=== PATIENT | female | born 1975 | race Caucasian/White ===

== ENCOUNTER 2022-12-27 21:59 | Outpatient (REF) | payer BC, SELFPAY ==
[2022-12-31 12:09] LABS: Age Gdln ACOG Testing Note (.); HPV Aptima Negative (Negative); IGP, Aptima HPV, rfx 16/18,45 Note (.)
== END 2022-12-27 22:00 | disposition home or self-care (01) ==
LOC: LAB 21:59
PROVIDERS: PCP Family Medicine; Visit Provider Physician Assistant
DX: Z01.419 Encounter for gynecological examination (general) (routine) without abnormal findings (principal)
CPT/HCPCS: 87624; G0145

== ENCOUNTER 2024-02-27 20:27 | Outpatient (REF) | payer BC, SELFPAY ==
[2024-03-02 12:10] LABS: Age Gdln ACOG Testing Note (.); HPV Aptima Negative (Negative); IGP, Aptima HPV, rfx 16/18,45 Note (.)
== END 2024-02-27 20:28 | disposition home or self-care (01) ==
LOC: LAB 20:27
PROVIDERS: PCP Family Medicine; Visit Provider Obstetrics & Gynecology
DX: Z01.419 Encounter for gynecological examination (general) (routine) without abnormal findings (principal)
CPT/HCPCS: 87624; 88175

== ENCOUNTER 2024-04-05 11:15 | Outpatient (REF) | payer BC, SELFPAY ==
--- OUTSIDE RECORDS SUMMARY | 2024-04-11 11:23 | XMS_ITS | CCD ---
Author Organization [facility] Care Team Providers Care Network Contractor Name Role Phone JERMAN ., DR ELSA Yee Primary Care Unavailable DIAB ., CHRISTOPHE Admitting Unavailable DIAB ., CHRISTOPHE Attending Unavailable DEEPALI MAJOR Consulting Unavailable DIAB ., CHRISTOPHE Consulting Unavailable SOPHIEDARIN PACHECO Admitting Unavailable DARIN BARRIOS Attending Unavailable JERMAN ., DR ELSA Yee Primary Care Unavailable DARIN BARRIOS Consulting Unavailable YOLANDA ., DR MASCORRO Admitting Unavailyissel GUERRERO ., DR MASCORRO Attending Unavailyissel STOLL ., DR ELSA Yee Primary Care Unavailable KARCARLOSK ., DR MASCORRO Consulting UnavailKiko Page MD Primary Care Provider Kiko Holder MD Unavailable [phone] Kiko Holder MD Primary Care Provider Kiko Holder MD Unavailable LLUVIA ORTIZ Attending Unavailable SINA MCKEON Attending Unavailable KIKO HOLDER Attending Unavailable Sina Mckeon Attending Unavailable Sina Mckeon Admitting Unavailable Allergies Allergy Classification Reported Allergen(s) Allergy Type Date of Onset Reaction(s) Facility (1 source) Ibuprofen Drug Allergy 6 [facility] (1 source) Sulfamethoxazole / Trimethoprim Drug Allergy 3 [facility] (5 sources) Sulfonamides (Antibiotic) Drug Allergy 3 [facility] (1 source) Sulfamethoxazole / Trimethoprim; Translations: [Bactrim DS] Drug Allergy [facility] Repository Medications Current Medications Medication Drug Class(es) Dates Sig (Normalized) Sig (Original) [id number] 200 actuat albuterol 0.09 mg/actuat metered dose inhaler (7 sources) beta2-Adrenergic Agonist Start: 02-27-2024 take 2 puff(s) by inhalation every four hours for wheezing albuterol HFA 90 mcg/act inhaler Indications: Non-seasonal allergic rhinitis, unspecified trigger Inhale 2 puffs every 4 (four) hours if needed for wheezing 18 g 2 02/27/2024 Active End: 02-27-2024 take 2 puff(s) by inhalation every four hours for wheezing albuterol HFA 90 mcg/act inhaler Inhale 2 puffs every 4 (four) hours if needed for wheezing 02/27/2024 Discontinued (Reorder) azelastine hydrochloride 0.137 mg/actuat metered dose nasal spray (3 sources) Histamine-1 Receptor Antagonist Start: 11-21-2023 End: 02-27-2024 take 1 spray(s) nasal route in the morning azelastine (Astelin) 0.1 % nasal spray Indications: Seasonal allergic rhinitis due to pollen Administer 1 spray into each nostril in the morning and 1 spray before bedtime. Use in each nostril as directed. 90 mL 1 11/21/2023 02/27/2024 Discontinued (Other) cetirizine hydrochloride 10 mg oral tablet (5 sources) Histamine-1 Receptor Antagonist Start: 11-24-2022 take 1 tablet by mouth once daily as needed cetirizine (ZyrTEC) 10 MG tablet Indications: Chronic pansinusitis TAKE 1 TABLET BY MOUTH EVERY DAY NEEDED 90 tablet 2 11/24/2022 Active estradiol 1 mg oral tablet (7 sources) Estrogen Start: 02-27-2024 take 1 tablet by mouth in the morning estradiol (Estrace) 1 MG tablet Indications: Asymptomatic menopausal state Take 1 tablet (1 mg) by mouth in the morning. 90 tablet 3 02/27/2024 Active Start: 09-05-2023 End: 02-27-2024 take 1 tablet by mouth in the morning estradiol (Estrace) 1 MG tablet Indications: Asymptomatic menopausal state TAKE 1 TABLET BY MOUTH IN THE MORNING 90 tablet 3 09/05/2023 02/27/2024 Discontinued (Reorder) famotidine 10 mg oral tablet (5 sources) Histamine-2 Receptor Antagonist take 1 tablet by mouth once daily famotidine (Pepcid) 10 MG tablet Take 10 mg by mouth Daily Active fexofenadine hydrochloride 180 mg oral tablet (5 sources) Histamine-1 Receptor Antagonist take 1 tablet by mouth twice daily as needed fexofenadine (Daniella Allergy) 180 MG tablet Take 180 mg by mouth 2 (two) times a day as needed Active fluticasone propionate 0.05 mg/actuat metered dose nasal spray (5 sources) Corticosteroid take 1 spray(s) nasal route in the morning fluticasone (Flonase) 50 MCG/ACT nasal spray Administer 1 spray into each nostril in the morning. Active 60 actuat fluticasone propionate 0.25 mg/actuat / salmeterol 0.05 mg/actuat dry powder inhaler (5 sources) Corticosteroid, beta2-Adrenergic Agonist Start: End: 025 take 1 puff(s) by inhalation once daily Fluticasone-Salmete rol (Advair Diskus) 250-50 MCG/ACT aerosol powder Indications: Moderate persistent asthma without complication (CMS/HCC) Inhale 1 puff Daily 180 each 1 11/21/2023 05/19/2024 Active montelukast 10 mg oral tablet (7 sources) Leukotriene Receptor Antagonist Start: End: 025 take 1 tablet by mouth at bedtime montelukast (Singulair) 10 MG tablet Indications: Moderate persistent asthma without complication (CMS/HCC) Take 1 tablet (10 mg) by mouth at bedtime 90 tablet 1 02/27/2024 08/25/2024 Active Multiple Vitamin (multivitamin) capsule (5 sources) take 1 capsule by mouth once daily Multiple Vitamin (multivitamin) capsule Take 1 capsule by mouth Daily Active Problems Active Problems Problem Classification Problem Date Documented Da te Episodic/Chronic Asthma (16 sources) Unspecified asthma with (acute) exacerbation; Translations: [Uncomplicated moderate persistent asthma] Onset: 08-22-2022 Resolved: 11-21-2023 Chronic Other screening for suspected conditions (not mental disorders or infectious disease) (6 sources) Encounter for screening for malignant neoplasm of cervix; Translations: [Patient encounter status] Onset: 11-17-2021 Episodic Other skin disorders (1 source) Skin tag; Translations: [Other hypertrophic disorders of the skin] 04-05-2024 Episodic Other upper respiratory disease (7 sources) Allergic rhinitis; Translations: [Allergic rhinitis, unspecified] Onset: 12-21-2022 12-21-2022 Chronic Other upper respiratory infections (5 sources) Chronic pansinusitis; Translations: [Chronic pansinusitis] Onset: 11-03-2022 11-03-2022 Chronic Residual codes; unclassified (2 sources) Menopause present; Translations: [Asymptomatic menopausal state] 02-27-2024 Episodic Unclassified (3 sources) CONTACT W/AND (SUSP) EXPOS COVID-19; Translations: [CONTACT W/AND (SUSP) EXPOS COVID-19] Onset: 05-05-2022 Past or Other Problems Problem Classification Problem Date Documented Date Episodic/Chronic Immunizations and screening for infectious disease (1 source) Encounter for screening for human papillomavirus (HPV); Translations: [ENC SCREENING HUMAN PAPILLOMAVIRUS] Onset: 11-20-2021 Episodic Other nutritional; endocrine; and metabolic disorders (5 sources) Obese class III; Translations: [Class 3 obesity] Onset: 12-21-2022 Resolved: 11-21-2023 11-21-2023 Chronic Unclassified (1 source) CONTACT W/AND (SUSP) EXPOS COVID-19; Translations: [CONTACT W/AND (SUSP) EXPOS COVID-19] Onset: 05-03-2022 Varicose veins of lower extremity (5 sources) Venous varices; Translations: [Asymptomatic varicose veins of unspecified lower extremity] Onset: 11-15-2012 11-03-2022 Episodic Results Test Name Value Interpretation Reference Range Facility IGP,APTIMA HPV,AGE GDLNon AGE GDLN ACOG TESTING Note . [facility] Comment on above: TESTS RESULT FLAG UN ITS REF RANGE LAB Clinician Provided Cytology Information Source.............Vagina No. of containers..01 ThinPrep Vial Age Algo ACOG Georgina... 3065 FLAG LEGEND: L-Low Normal,H-High Normal,LL-Alert Low,HH-Alert High <-Panic Low,>-Panic High,A-Abnormal,AA-Critical Abnormal Performed at: 01 =[address] [id number] Leilani Hunter MD, HPV APTIMA Negative Negative [facility] Comment on above: This nucleic acid am plification test detects fourteen high- risk HPV types (16,18,31,33,35,39,45,51,52,56,58,59,66,68) without differentiation. Performed at: =[address] [id number] Credit Counselor: Leilani Hunter MD, Phone: [phone] Performed at: [address] [id number] Credit Counselor: Leilani Hunter MD, Phone: [phone] IGP, APTIMA HPV, RFX 16/18,45 Note . [facility] Comment on above: TESTS RESULT FLAG U NITS REF RANGE LAB DIAGNOSIS: 02 NEGATIVE FOR INTRAEPITHELIAL LESION OR MALIGNANCY. Specimen adequacy: 02 Satisfactory for evaluation. No endocervical component is identified. Performed by: Lillian Espino, Eye Care Professional (ASCP) . 02 Note: Note 02 The Pap smear is a screening test designed to aid in the detection of premalignant and malignant conditions of the uterine cervix. It is not a diagnostic procedure and should not be used as the sole means of detecting cervical cancer. Both false-positive and false-negative reports do occur. Test Methodology: Note 02 This liquid based ThinPrep(R) pap test was screened with the use of an image guided system. HPV Genotype Reflex Note 02 Criteria not met, HPV Genotype not performed. FLAG LEGEND: L-Low Normal,H-High Normal,LL-Alert Low,HH-Alert High <-Panic Low,>-Panic High,A-Abnormal,AA-Critical Abnormal Performed at: [address] [address] Leilani Hunter MD, SPATUL[facility] Cervical or vaginal smear or scraping studyon 02-27-2024 [facility] CARDIAC ANDRESSA ADMITon 023 CK [Catalytic activity/Vol] 70 U/L Normal 26-192 [facility] Comment on above: Performed By: #### C YOJANA BARTHOLOMEW #### [facility] [address] [address] [address] Ambrocoi Rubio CK.MB [Mass/Vol] 0.93 ng/mL Normal <=3.60 [facility] Comment on above: Performed By: #### C YOJANA BARTHOLOMEW #### [facility] [address] [address] [address] Ambrocio Rubio HSTROP 4.6 pg/mL Normal 4.0-51.3 [facility] Comment on above: Result Comment: CUT- OFF POINTS HAVE BEEN ESTABLISHED BASED ON THE FOURTH UNIVERSAL DEFINITIONS OF MYOCARDIAL INFARCTION. THE UPPER REFERENCE LIMIT (URL) OF TROPONIN, DEFINED THE 99TH PERCENTILE OF cTnI DISTRIBUTION IN A REFERENCE POPULATION, HAS BEEN CONFIRMED THE DECISION THRESHOLD FOR [place] DIAGNOSIS. Performed By: #### C MP, CMADM #### [facility] [address] [place] [address] Dr. Ambrocio Rubio MICHAEL 41 ng/mL Normal 9-82 [facility] Comment on above: Performed By: #### C MP, CMADM #### [facility] [address] [place] [address] Dr. Ambrocio Rubio CBC AUTO DIFFon 08-22-2022 BASO # 0.1 103/ul Normal 0.0-0.1 [facility] Comment on above: Performed By: #### C BC #### [facility] [address] [place] [address] Dr. Ambrocio Rubio Basophils/100 WBC (Bld) 0.9 % Normal 0.2-2.0 [facility] Comment on above: Performed By: #### C BC #### [facility] [address] [place] [address] Dr. Ambrocio Rubio EO # 0.8 103/ul Critically high 0.0-0.7 [facility] Comment on above: Performed By: #### C BC #### [facility] [address] [place] [address] Dr. Ambrocio Rubio Eosinophils/100 WBC (Bld) 8.3 % Critically high 0.9-7.0 [facility] Comment on above: Performed By: #### C BC #### [facility] [address] [place] [address] Dr. Ambrocio Rubio Erythrocyte distribution width (RBC) [Ratio] 13.3 % Normal 11.0-15.0 [facility] Comment on above: Performed By: #### C BC #### [facility] [address] [place] [address] Dr. Ambrocio Rubio Hematocrit (Bld) [Volume fraction] 42.9 % Normal 36.0-48.0 [facility] Comment on above: Performed By: #### C BC #### [facility] [address] [place] [address] Dr. Ambrocio Rubio Hemoglobin (Bld) [Mass/Vol] 14.2 g/dL Normal 12.0-16.0 [facility] Comment on above: Performed By: #### C BC #### [facility] [address] [place] [address] Dr. Ambrocio Rubio IG # 0.04 10e3/ul Critically high 0.00-0.03 [facility] Comment on above: Performed By: #### C BC #### [facility] [address] [place] [address] Dr. Ambrocio Rubio IG % 0.4 % Normal 0.0-0.5 [facility] Comment on above: Performed By: #### C BC #### [facility] [address] [place] [address] Dr. Ambrocio Rubio LYMPH # 4.3 103/ul Critically high 1.2-3.8 [facility] Comment on above: Performed By: #### C BC #### [facility] [address] [place] [address] Dr. Ambrocio Rubio Lymphocytes/100 WBC (Bld) 43.2 % Normal 20.5-60.0 [facility] Comment on above: Performed By: #### C BC #### [facility] [address] [place] [address] Dr. Ambrocio Rubio MANUAL DIFF REQ NO Normal [facility] Comment on above: Performed By: #### C BC #### [facility] [address] [place] [address] Dr. Ambrocio Rubio MCH (RBC) [Entitic mass] 28.5 pg Normal 26.7-34.0 [facility] Comment on above: Performed By: #### C BC #### [facility] [address] [place] [address] Dr. Ambrocio Rubio MCHC (RBC) [Mass/Vol] 33.1 g/dL Normal 29.9-35.2 [facility] Comment on above: Performed By: #### C BC #### [facility] [address] [place] [address] Dr. Ambrocio Rubio MCV (RBC) [Entitic vol] 86.0 fL Normal 81.0-99.0 [facility] Comment on above: Performed By: #### C BC #### [facility] [address] [place] [address] Dr. Ambrocio Rubio MONO # 0.6 103/ul Normal 0.3-0.8 [facility] Comment on above: Performed By: #### C BC #### [facility] [address] [place] [address] Dr. Ambrocio Rubio Monocytes/100 WBC (Bld) 6.0 % Normal 1.7-12.0 [facility] Comment on above: Performed By: #### C BC #### [facility] [address] [place] [address] Dr. Ambrocio Rubio NEUT # 4.1 103/ul Normal 1.4-6.5 [facility] Comment on above: Performed By: #### C BC #### [facility] [address] [place] [address] Dr. Ambrocio Rubio Neutrophils/100 WBC (Bld) 41.2 % Critically low 43.0-75.0 [facility] Comment on above: Performed By: #### C BC #### [facility] [address] [place] [address] Dr. Ambrocio Rubio Platelet mean volume (Bld) [Entitic vol] 10.1 fL Normal 9.5-13.5 [facility] Comment on above: Performed By: #### C BC #### [facility] [address] [place] [address] Dr. Ambrocio Rubio PLT 244 103/ul Normal 150-450 [facility] Comment on above: Performed By: #### C BC #### [facility] [address] [place] [address] Dr. Ambrocio Rubio RBC 4.99 106/ul Normal 4.20-5.40 [facility] Comment on above: Performed By: #### C BC #### [facility] [address] [place] [address] Dr. Ambrocio Rubio WBC 9.9 103/ul Normal 4.0-11.0 [facility] Comment on above: Performed By: #### C BC #### [facility] [address] [address] [address] Ambrocio Rubio PROF 14(COMP METB)on 023 Albumin [Mass/Vol] 3.7 g/dL Normal 3.4-5.0 [facility] Comment on above: Performed By: #### C MP, CMADM #### [facility] [address] [address] [address] Ambrocio Rubio Albumin/Globulin [Mass ratio] 0.8 {ratio} Normal [facility] Comment on above: Performed By: #### C MP, CMADM #### [facility] [address] [address] [address] Ambrocio Rubio ALP [Catalytic activity/Vol] 82 U/L Normal 46-116 [facility] Comment on above: Performed By: #### C MP, CMADM #### [facility] [address] [address] [address] Ambrocio Rubio ALT [Catalytic activity/Vol] 34 U/L Normal 14-59 [facility] Comment on above: Performed By: #### C MP, CMADM #### [facility] [address] [address] [address] Ambrocio Rubio Anion gap [Moles/Vol] 13.6 mmol/L Normal [facility] Comment on above: Performed By: #### C MP, CMADM #### [facility] [address] [address] [address] Ambrocio Rubio AST [Catalytic activity/Vol] 17 U/L Normal 15-37 [facility] Comment on above: Performed By: #### C MP, CMADM #### [facility] [address] [address] [address] Ambrocio Rubio Bilirubin [Mass/Vol] 0.3 mg/dL Normal 0.2-1.0 [facility] Comment on above: Performed By: #### C MP, CMADM #### [facility] [address] [address] [address] Ambrocio Rubio Calcium [Mass/Vol] 9.0 mg/dL Normal 8.5-10.1 [facility] Comment on above: Performed By: #### C MP, CMADM #### [facility] [address] [address] [address] Ambrocio Rubio Chloride [Moles/Vol] 104 mmol/L Normal 98-107 [facility] Comment on above: Performed By: #### C MP, CMADM #### [facility] [address] [address] [address] Ambrocio Rubio CO2 [Moles/Vol] 27.9 mmol/L Normal 21.0-32.0 [facility] Comment on above: Performed By: #### C MP, CMADM #### [facility] [address] [address] [address] Ambrocio Rubio Creatinine [Mass/Vol] 0.82 mg/dL Normal 0.55-1.02 [facility] Comment on above: Performed By: #### C MP, CMADM #### [facility] [address] [address] [address] Ambrocio Rubio EGFR-AF INDONESIAN >60 Normal >=60 [facility] Comment on above: Performed By: #### C MP, CMADM #### [facility] [address] [address] [address] Ambrocio Rubio EGFR-NON AF INDONESIAN >60 Normal >=60 [facility] Comment on above: Performed By: #### C MP, CMADM #### [facility] [address] [address] [address] Ambrocio Rubio Globulin (S) [Mass/Vol] 4.5 g/dL Normal [facility] Comment on above: Performed By: #### C MP, CMADM #### [facility] [address] [address] [address] Ambrocio Rubio Glucose [Mass/Vol] 140 mg/dL Critically high 74-106 [facility] Comment on above: Performed By: #### C MP, CMADM #### [facility] [address] [address] [address] Ambrocio Rubio Potassium [Moles/Vol] 3.5 mmol/L Normal 3.5-5.1 [facility] Comment on above: Performed By: #### C MP, CMADM #### [facility] [address] [address] [address] Ambrocio Rubio Protein [Mass/Vol] 8.2 g/dL Normal 6.4-8.2 [facility] Comment on above: Performed By: #### C MP, CMADM #### [facility] [address] [place] [address] Dr. Ambrocio Rubio Sodium [Moles/Vol] 142 mmol/L Normal 136-145 [facility] Comment on above: Performed By: #### C MP, CMADM #### [facility] [address] [place] [address] Dr. Ambrocio Rubio Urea nitrogen [Mass/Vol] 14.0 mg/dL Normal 7.0-18.0 [facility] Comment on above: Performed By: #### C MP, CMADM #### [facility] [address] [place] [address] Dr. Ambrocio Rubio Urea nitrogen/Creatinin e [Mass ratio] 17.1 mg/mg Normal [facility] Comment on above: Performed By: #### C [place], CMADM #### [facility] [address] [place] [address] Dr. Ambrocio Rubio XR CHEST 1 Von 08-22-2022 XR CHEST 1 V EXAM: Chest x-ray HISTORY: . SHORTNESS OF BREATH . COMPARISON: None TECHNIQUE: Single view of the chest FINDINGS: Heart and vascularity are unremarkable. Lungs are free of focal infiltrates. No effusions are noted. IMPRESSION: No acute heart or lung disease identified. Electronically authenticated by: DEEPALI MAJOR Date: 2022-08-22 10:48 Normal [facility] Covid-19 PCR (CVDTB)on 04-15 SARS-CoV-2 (COVID-19) RNA JO+probe Ql (Unsp spec) Not detected Normal NOT DETECTED [facility] Comment on above: Result Comment: When diagnostic testing is negative, the possibility of a false negative should be considered in the context of a patient's recent exposures and the presence of clinical signs and symptoms consistent with SARS-CoV-2. This test is not yet approved or cleared by the [place] FDA. When there are no FDA-approved or cleared tests available, and other criteria are met, FDA can make tests available under an emergency access mechanism called an Emergency Use Authorization (EUA). The EUA for this test is supported by the [employer] Administrator of Health and Human Service's declaration that circumstances exist to justify the emergency use of in vitro diagnostics for the detection and/or diagnosis of the virus that causes COVID-19. This EUA will remain in effect for the duration of the COVID-19 declaration justifying emergency of IVDs, unless it is terminated or revoked by the FDA (after which the test may no longer be used). Performed By: #### C VDTB #### [facility] [address] [place] [address] Dr. Ambrocio Rubio PAP ACOG PANEL 2: 30 to 65on 11-20-2021 . . Normal [facility] Comment on above: Result Comment: Perf ormed at: WB Performed By: #### [id number] #### [facility] [address] [place] [address] Dr. Ambrocio Rubio Age Gdln ACOG Testing 30-65 Normal [facility] Comment on above: Performed By: #### [id number] #### [facility] [address] [place] [address] Dr. Ambrocio Rubio DIAGNOSIS: Comment Normal [facility] Comment on above: Result Comment: NEGA TIVE FOR INTRAEPITHELIAL LESION OR MALIGNANCY. Performed at: WB Performed By: #### [id number] #### [facility] [address] [place] [address] Dr. Ambrocio Rubio HPV Aptima Negative Normal Negative [facility] Comment on above: Result Comment: This nucleic acid amplification test detects fourteen high-risk HPV types (16,18,31,33,35,39,45,51,52,56,58,59,66,68) without differentiation. Performed at: =G Performed By: #### [id number] #### [facility] [address] [place] [address] Dr. Ambrocio Rubio Methodology: Comment Normal [facility] Comment on above: Result Comment: This liquid based ThinPrep(R) pap test was screened with the use of an image guided system. Performed at: WB Performed By: #### [id number] #### [facility] [address] [place] [address] Dr. Ambrocio Rubio Note: Comment Normal [facility] Comment on above: Result Comment: The Pap smear is a screening test designed to aid in the detection of premalignant and malignant conditions of the uterine cervix. It is not a diagnostic procedure and should not be used as the sole means of detecting cervical cancer. Both false-positive and false-negative reports do occur. . Performed at: WB Performed By: #### [id number] #### [facility] [address] [place] [address] Dr. Ambrocio Rubio Performed by: Comment Normal [facility] Comment on above: Result Comment: Donte Alonzo, [facility] Professional (ASCP) Performed at: WB Performed By: #### [id number] #### [facility] [address] [place] [address] Dr. Ambrocio Rubio Specimen adequacy: Comment Normal [facility] Comment on above: Result Comment: Sati sfactory for evaluation. No endocervical component is identified. Performed at: WB Performed By: #### [id number] #### [facility] [address] [place] [address] Dr. Ambrocio Rubio Vital Signs Date Time Vital Sign Value Performing Clinician Felipe litgeorgie 04-05-2024 11:41-0500 Body mass index (BMI) [Ratio] 44.22 kg/m2 Lluvia GAVIRIA Work Phone: [facility] 04-05-2024 11:41-0500 Body weight 124.29 kg Lluvia GAVIRIA Work Phone: [facility] 02-27-2024 08:47-0400 Body mass index (BMI) [Ratio] 44.84 kg/m2 Sina Mike DO Work Phone: [facility] 02-27-2024 08:47-0400 Body weight 126.01 kg Sina Mike DO Work Phone: [facility] 02-27-2024 08:47-0400 Diastolic blood pressure 74 mm[Hg] Sina Mike DO Work Phone: [facility] 02-27-2024 08:47-0400 Systolic blood pressure 122 mm[Hg] Sina Mike DO Work Phone: [facility] Encounters Encounter Date Encounter Type Care Provider Facility Start: 04-05-2024 End: 04-05-2024 Patient encounter procedure Lluvia Ortiz PA Work Phone: [facility] Comment on above: Skin tag Start: 04-05-2024 End: 04-05-2024 ambulatory LLUVIA MARTINOEY Not Available Start: 03-05-2024 ambulatory Facility:[facility] Start: 02-29-2024 ambulatory Facility:[facility]gr[facility] Douglas Start: 02-27-2024 End: 02-27-2024 Bamboo flowsheet Sina Mike DO Work Phone: [facility] Start: 02-27-2024 End: 03-02-2024 Bamboo flowsheet Sina Mike DO Work Phone: [facility] Start: 02-27-2024 End: 03-02-2024 Clinisync Result Encounter Generic External Data Provider [facility] External Department Unsolicited Start: 02-27-2024 End: 02-27-2024 ambulatory SINA MIKE Not Available Start: 02-27-2024 End: 02-27-2024 Patient encounter procedure Sina Mike DO Work Phone: [facility] Work Phone: Start: 02-27-2024 End: 02-27-2024 Periodic preventive med est patient 40-64yrs Sina Mike DO Work Phone: [facility] Comment on above: Well woman exam with routine gynecological exam; Breast cancer screening by mammogram; Asymptomatic menopausal state; Non-seasonal allergic rhinitis, unspecified trigger; Moderate persistent asthma without complication ([facility]) Start: 11-21-2023 End: 11-21-2023 ambulatory KIKO HOLDER Not Available Start: 08-22-2022 End: 08-22-[address] ELSA STOLL . Facility: Start: 05-03-2022 End: 05-03-2022 ambulatory DARIN BARRIOS Facility:[facility] Start: 11-17-2021 End: 11-17-[address] SUBHA GUERRERO . Facility: Procedures Date Procedure Procedure Detail Performing Clinician Start: 02-27-2024 IGP,APTIMA HPV,AGE GDLN Sina Mike DO Work Phone: Start: 02-27-2024 Cytp cerv/vag auto t hin layer prep mnl screen Sina Mike DO Work Phone: Plan of Treatment Date Care Activity Detail Author Start: 02-28-2025 End: 02-28-2025 Patient encounter procedure 02/28/2025 10:00 AM EDT Office Visit [facility] [address] [place] [address] Sina Mckeon, DO [address] [place], [place] [id number] [facility] Start: 04-05-2024 End: 04-05-2024 Patient encounter procedure 04/05/2024 11:00 AM EST Procedure Visit [facility] [address] [place] [address] Lluvia Ortiz PA [address] [place], [place] [id number] [facility] Start: 02-27-2024 End: 04-28-2025 MG Breast - bilateral Screening Bilateral screening mammogram Imaging Routine Breast cancer screening by mammogram Expected: 02/27/2024 (Approximate), Expires: 04/28/2025 [facility] Work Phone: Comment on above: Expected: 02/27/2024 (Approximate), Expires: 04/28/2025 Start: 01-15-2024 Influenza vaccination Influenza Vacc ine (#1) [facility] Start: 2014 Screening for malignant neoplasm of breast Mammogram [facility] Start: 1974 Screening for malignant neoplasm of colon [facility] THIN PREP TIS PAP AN D HR HPV DNA THIN PREP TIS PAP AND HR HPV DNA Pathology and Cytology Routine Well woman exam with routine gynecological exam Ordered: 02/27/2024 [facility] Comment on above: Ordered: 02/27/2024 Immunizations Immunization Date Immunization Notes Care Provider Sonia roman 05-18-2000 hepatitis B vaccine, adult dosage Sina Mike DO Work Phone: [facility] 11-18-1999 hepatitis B vaccine, adult dosage Sina Mike DO Work Phone: [facility] 10-14-1999 hepatitis B vaccine, adult dosage Sina Mike DO Work Phone: [facility] 10-14-1999 measles, mumps and rubella virus vaccine Sina Mike DO Work Phone: [facility] 10-14-1999 TD(adult) unspecifie d formulation Sina Mike DO Work Phone: [facility] 08-05-1977 measles, mumps and rubella virus vaccine Sina Mike DO Work Phone: [facility] Payers Date Payer Category Payer Self-pay 2024 Unknown [id number] 2022 [facility] [id number] 2022 Unknown [id number] 2019 Unknown [id number] 1974 Unknown [id number] 2.16.84 [id number] 1974 Unknown [id number] 2.16.84 [id number] 1974 Unknown [id number] 2.16.84 [id number] 1974 Unknown [id number] 2.16.84 [id number] 1974 Unknown [id number] 2.16.84 [id number] 1974 Unknown [id number] [id number] [id number] Social History Date Type Detail Facility Start: 11-21-2023 Tobacco smoking stat [facility] Never smoked tobacco [facility] Start: 11-21-2023 Tobacco use and exposure Smoke less tobacco non-user [facility] Start: 11-21-2023 End: 04-05-2024 Alcoholic beverage intake Current drinker of alcohol (finding) [facility] Start: 11-04-2022 End: 11-21-2023 Alcoholic beverage intake [facility] Start: 11-04-2022 End: 11-21-2023 Tobacco use panel [facility] Start: 11-17-2022 Alcohol Comment Caffeine intak e: 1-2 cups per day [facility] Start: 1974 Sex assigned at Not on file [facility] History of Present illness Narrative 04-05-2024 Elaine Sanchez MA - 04/05/2024 11:00 AM EST Note Date & Type Note Facility 04-05-2024 History of Presen t illness Narrative Reason for Appointment: Patient ID: Serina Horn is a 48 y.o. female who presents for Skin Tag (Pt present today for a skin tag removal visit.) Patient presents today for skin tag removal visit MEDICATIONS Current Outpatient Medications Medication Instructions albuterol HFA 90 mcg/act inhaler 2 puffs, Inhalation, Every 4 hours PRN cetirizine (ZyrTEC) 10 MG tablet TAKE 1 TABLET BY MOUTH EVERY DAY NEEDED estradiol (ESTRACE) 1 mg, Oral, Every morning famotidine (PEPCID) 10 mg, Oral, Daily fexofenadine (DANIELLA ALLERGY) 180 mg, Oral, 2 times daily PRN fluticasone (Flonase) 50 MCG/ACT nasal spray 1 spray, Each Nostril, Daily Fluticasone-Salmeterol (Advair Diskus) 250-50 MCG/ACT aerosol powder 1 puff, Inhalation, Daily montelukast (SINGULAIR) 10 mg, Oral, Nightly Multiple Vitamin (multivitamin) capsule 1 capsule, Oral, Daily ALLERGIES Allergies Allergen Reactions Sulfa Antibiotics Other Reaction(s): Unknown PROBLEMS Active Ambulatory Problems Diagnosis Date Noted Asymptomatic varicose veins 11/15/2012 Chronic pansinusitis 11/03/2022 Allergic rhinitis 12/21/2022 Moderate persistent asthma without complication ([facility]) 11/21/2023 Resolved Ambulatory Problems Diagnosis Date Noted Asthma (CMS/HCC) 12/21/2022 Class 3 obesity 12/21/2022 Past Medical History: Diagnosis Date Breast cancer screening by mammogram 06/26/2020 Glaucoma (CMS/HCC) Mild intermittent asthma (CMS/HCC) Recurrent maxillary sinusitis Suppurative otitis media HISTORY PAST MEDICAL HISTORY SOCIAL HISTORY Past Medical History: Diagnosis Date Allergic rhinitis Breast cancer screening by mammogram 06/26/2020 Glaucoma (CMS/HCC) Mild intermittent asthma (CMS/HCC) Recurrent maxillary sinusitis Suppurative otitis media Social History Tobacco Use Smoking status: Never Smokeless tobacco: Never Substance Use Topics Alcohol use: Yes Alcohol/week: 2.0 standard drinks of alcohol Types: 2 Standard drinks or equivalent per week Comment: Caffeine intake: 1-2 cups per day Drug use: Never FAMILY HISTORY Family History Problem Relation Name Age of Onset Diabetes Mother Hypertension Mother Hyperlipidemia Mother Hypertension Father Hyperlipidemia Father Cancer Father SURGICAL HISTORY Past Surgical History: Procedure Laterality Date APPENDECTOMY 2008 HYSTERECTOMY REVIEW OF SYSTEMS Review of Systems: Review of Systems All other systems reviewed and are negative. OBJECTIVE Objective: Physical Exam Constitutional: Appearance: Normal appearance. She is well-developed. Cardiovascular: Rate and Rhythm: Normal rate and regular rhythm. Pulmonary: Effort: Pulmonary effort is normal. Breath sounds: Normal breath sounds. Abdominal: General: Bowel sounds are normal. There is no distension. Palpations: Abdomen is soft. Tenderness: There is no abdominal tenderness. There is no guarding or rebound. Musculoskeletal: General: No swelling. Normal range of motion. Right lower leg: No edema. Left lower leg: No edema. Neurological: Mental Status: She is alert and oriented to person, place, and time. Skin: General: Skin is warm and dry. Psychiatric: Mood and Affect: Mood normal. Behavior: Behavior normal. Vitals and nursing note reviewed. Exam conducted with a tactical debriefer present. Vitals: Estimated body mass index is 44.84 kg/m as calculated from the following: Height as of 11/21/23: 5' 6 . Weight as of 10/14/24: 277 lb 12.8 oz. BP: No LMP recorded. Patient has had a hysterectomy. ASSESSMENT & PLAN ICD-10-CM 1. Skin tag L91.8 Skin Tag Removal: Patient presents today for skin tags being removed along her neck bilaterally. Patient signed consents for procedure. Area cleansed with alcohol, lidocaine injected after allowing sufficient time to take affect. bean picker and scissors used to remove affected area. Placed in formalin and sent to pathology. Post-procedure instructions given. Several skin tags removed on right and left side, which will be sent to Pathology for testing. Follow Up: as needed and for annual appointment. Documented by Sepideh Guerra LPN on behalf of: EVERETTE Skinner documented in this encounter [facility] History of Present illness Narrative 02-27-2024 Sepideh Guerra LPN - 02/27/2024 8:30 AM EDT Note Date & Type Note Facility 02-27-2024 History of Presen t illness Narrative Reason for Appointment: Patient ID: Serina Horn is a 48 y.o. female who presents for Well Women Visit Patient presents today for Annual Exam. MEDICATIONS Current Outpatient Medications Medication Instructions albuterol HFA 90 mcg/act inhaler 2 puffs, Inhalation, Every 4 hours PRN cetirizine (ZyrTEC) 10 MG tablet TAKE 1 TABLET BY MOUTH EVERY DAY NEEDED estradiol (ESTRACE) 1 mg, Oral, Every morning famotidine (PEPCID) 10 mg, Oral, Daily fexofenadine (DANIELLA ALLERGY) 180 mg, Oral, 2 times daily PRN fluticasone (Flonase) 50 MCG/ACT nasal spray 1 spray, Each Nostril, Daily Fluticasone-Salmeterol (Advair Diskus) 250-50 MCG/ACT aerosol powder 1 puff, Inhalation, Daily montelukast (SINGULAIR) 10 mg, Oral, Nightly Multiple Vitamin (multivitamin) capsule 1 capsule, Oral, Daily ALLERGIES Allergies Allergen Reactions Sulfa Antibiotics Other Reaction(s): Unknown PROBLEMS Active Ambulatory Problems Diagnosis Date Noted Asymptomatic varicose veins 11/15/2012 Chronic pansinusitis 11/03/2022 Allergic rhinitis 12/21/2022 Moderate persistent asthma without complication ([facility]) 11/21/2023 Resolved Ambulatory Problems Diagnosis Date Noted Asthma ([facility]) 12/21/2022 Class 3 obesity 12/21/2022 Past Medical History: Diagnosis Date Breast cancer screening by mammogram 06/26/2020 Glaucoma ([facility]) Mild intermittent asthma ([facility]) Recurrent maxillary sinusitis Suppurative otitis media HISTORY PAST MEDICAL HISTORY SOCIAL HISTORY Past Medical History: Diagnosis Date Allergic rhinitis Breast cancer screening by mammogram 06/26/2020 Glaucoma ([facility]) Mild intermittent asthma ([facility]) Recurrent maxillary sinusitis Suppurative otitis media Social History Tobacco Use Smoking status: Never Smokeless tobacco: Never Substance Use Topics Alcohol use: Yes Alcohol/week: 2.0 standard drinks of alcohol Types: 2 Standard drinks or equivalent per week Comment: Caffeine intake: 1-2 cups per day Drug use: Never FAMILY HISTORY Family History Problem Relation Name Age of Onset Diabetes Mother Hypertension Mother Hyperlipidemia Mother Hypertension Father Hyperlipidemia Father Cancer Father SURGICAL HISTORY Past Surgical History: Procedure Laterality Date APPENDECTOMY 2007 HYSTERECTOMY REVIEW OF SYSTEMS Review of Systems: Review of Systems All other systems reviewed and are negative. OBJECTIVE Objective: Physical Exam Constitutional: Appearance: Normal appearance. She is well-developed. Genitourinary: Vulva normal. Vaginal cuff intact. Cervix is not absent. Uterus is not absent. Breasts: Breasts are soft. Right: Normal. Left: Normal. Cardiovascular: Rate and Rhythm: Normal rate and regular rhythm. Abdominal: General: Bowel sounds are normal. There is no distension. Palpations: Abdomen is soft. Tenderness: There is no abdominal tenderness. There is no guarding or rebound. Musculoskeletal: General: No swelling. Normal range of motion. Right lower leg: No edema. Left lower leg: No edema. Neurological: Mental Status: She is alert and oriented to person, place, and time. Skin: General: Skin is warm and dry. Psychiatric: Mood and Affect: Mood normal. Behavior: Behavior normal. Vitals and nursing note reviewed. Exam conducted with a tactical debriefer present. Vitals: Estimated body mass index is 44.84 kg/m as calculated from the following: Height as of 11/21/23: 5' 6 . Weight as of this encounter: 277 lb 12.8 oz. BP: 122/74 No LMP recorded. Patient has had a hysterectomy. ASSESSMENT & PLAN ICD-10-CM 1. Well woman exam with routine gynecological exam Z01.419 THIN PREP TIS PAP AND HR HPV DNA 2. Breast cancer screening by mammogram Z12.31 Bilateral screening mammogram Bilateral screening mammogram Annual: Patient presents today for an annual exam. Patient states she is doing well and has no complaints. Pap was obtained without difficulty and patient given mammogram order to have scheduled/obtained. Discussed with patient that at this time since she is on Estrogen replacement than she will not need DEXA scan until next year. Orders Placed This Encounter Procedures Bilateral screening mammogram Follow Up: Patient is to return in one year for annual unless needed otherwise. Documented by Sepideh Guerra LPN on behalf of: Sina Mckeon DO documented in this encounter [facility] Evaluation note Note Date & Type Note Facility Evaluation note Diagnosis Well woman exam with routine gynecological exam Routine gynecological examination Breast cancer screening by mammogram Asymptomatic menopausal state Non-seasonal allergic rhinitis, unspecified trigger Moderate persistent asthma without complication (CMS/HCC) documented in this encounter [facility] Evaluation note Note Date & Type Note Facility Evaluation note Diagnosis Skin tag Unspecified hypertrophic and atrophic condition of skin documented in this encounter [facility] Summary Purpose Family History No Family History Records FoundNo Family History Records FoundNo Family History Records FoundNo Family History Records Found Advance Directives No Advanced Directives Records FoundNo Advanced Directives Records FoundNo Advanced Directives Records FoundNo Advanced Directives Records Found Additional Source Comments INFORMATION SOURCE (unrecogn ized section and content) DATE CREATED AUTHOR 08/24/2022 [facility] DATE CREATED AUTHOR AUTHOR'S ORGANIZ ATION 03/07/2024 [facility] DATE CREATED AUTHOR AUTHOR'S ORGANIZ ATION 04/08/2024 [facility] DATE CREATED AUTHOR AUTHOR'S ORGANIZ ATION 04/09/2024 [facility] Care Teams (unrecognized sec tion and content) Network Contractor Relationship Specialty Start Date End Date Kiko Holder MD [address] [place] [address] PCP - General Family Medicine 11/03/22 Kiko Holder MD [address] [place] [address] (Fax) PCP [facility] 12/14/22 Network Contractor Relationship Specialty Start Date End Date Kiko Holder MD [address] [place] [address] PCP [facility] 11/03/22 Kiko Holder MD [address] [place] [address] (Fax) [facility] 12/14/22 Network Contractor Relationship Specialty Start Date End Date Kiko Holder MD [address] [place] [address] PCP [facility] 11/03/22 Kiko Holder MD [address] [place] [address] (Fax) PCP [facility] 12/14/22 Network Contractor Relationship Specialty Start Date End Date Kiko Holder MD (Fax) [facility] 11/03/22 Kiko Holder MD [address] [place] [address] (Fax) [facility]CP [facility] 12/14/22 Reason for Visit (unrecogniz ed section and content) Reason Comments Well Women Visit Reason Comments Skin Tag Pt present today for a skin tag removal visit. FOR RECORDS PERTAINING TO PATIENTS WHO ARE OR HAVE BEEN ENROLLED IN A CHEMICAL DEPENDENCY/SUBSTANCEABUSE PROGRAM, SOME INFORMATION MAY BE OMITTED. This clinical summary was aggregated from multiple sources. Caution should be exercised in using it in the provision of clinical care. This summary normalizes information from multiple sources, and as a consequence, information in this document may materially change the coding, format and clinical context of patient data. In addition, data may be omitted in some cases. CLINICAL DECISIONS SHOULD BE BASED ON THE PRIMARY CLINICAL RECORDS. [facility] [employer] [facility] provides no warranty or guarantee of the accuracy or completeness of information in this document.
== END 2024-04-05 11:16 | disposition home or self-care (01) ==
LOC: LAB 11:15
PROVIDERS: PCP Family Medicine; Visit Provider Obstetrics & Gynecology
DX: L91.8 Other hypertrophic disorders of the skin (principal)

== ENCOUNTER 2024-04-23 08:30 | Outpatient (OUT) | payer BC, SELFPAY ==
[2024-04-23 09:03] LABS: Alanine Aminotransferase 137 U/L (14-59); Albumin Globulin Ratio 0.7; Albumin Level 3.3 g/dL (3.4-5.0); Alkaline Phosphatase 117 U/L (46-116); Anion Gap 14.7; Aspartate Amino Transferase 152 U/L (15-37); BUN Creatinine Ratio 9.4; Bilirubin Total 0.6 mg/dL (0.2-1.0); Calcium 9.1 mg/dL (8.5-10.1); Carbon Dioxide 25.6 mmol/L (21.0-32.0); Chloride 98 mmol/L (98-107); Chol HDL Ratio 5.5; Cholesterol 225 mg/dL (<=200); Estimated GFR (African America >60 (>=60 mL/min/1.73m^2); Estimated GFR (Non-African Ame >60 (>=60 mL/min/1.73m^2); Globulin 4.5 g/dL; Glucose 421 mg/dL (74-106); HDL Cholesterol 41 mg/dL (40-60); Potassium 4.3 mmol/L (3.5-5.1); Sodium 134 mmol/L (136-145); Total Protein 7.8 g/dL (6.4-8.2); Triglycerides 233 mg/dL (<=150); VLDL CHOLESTEROL 46.6 mg/dL
== END 2024-04-23 08:31 | disposition home or self-care (01) ==
LOC: LAB 08:34
PROVIDERS: PCP Family Medicine; Visit Provider Family Medicine
DX: Z13.220 Encounter for screening for lipoid disorders (principal); Z13.1 Encounter for screening for diabetes mellitus
CPT/HCPCS: 36415; 80053; 80061

== ENCOUNTER 2024-05-01 12:31 | Outpatient (OUT) | payer BC, SELFPAY ==
--- OUTSIDE RECORDS SUMMARY | 2024-05-01 12:38 | XMS_ITS | CCD ---
Author Organization [facility] Care Team Providers Care Orthodontic Lab Technician Name Role Phone JERMAN ., DR ELSA Yee Primary Care Unavailable DIAB ., CHRISTOPHE Admitting Unavailable DIAB ., CHRISTOPHE Attending Unavailable DEEPALI MAJOR Consulting Unavailable DIAB ., CHRISTOPHE Consulting Unavailable SOPHIE, DARIN Admitting Unavailable DARIN BARRIOS Attending Unavailable JERMAN ., DR ELSA Yee Primary Care Unavailable DARIN BARRIOS Consulting Unavailable YOLANDA ., DR MASCORRO Admitting Unavailyissel GUERRERO ., DR MASCORRO Attending Unavailyissel STOLL ., DR ELSA Yee Primary Care Unavailable KARASIK ., DR MASCORRO Consulting UnavailKiko Page MD Primary Care Provider Kiok Holder MD Unavailable Kiko Holder MD Primary Care Provider Kiko Holder MD Unavailable Sina Mckeon Attending Unavailable Sina Mckeon Admitting Unavailable Kiko Holder MD Unavailable KIKO HOLDER Attending Unavailable SINA MCKEON Attending Unavailable LLUVIA ORTIZ Attending Unavailable KIKO HOLDER Attending Unavailable Allergies Allergy Classification Reported Allergen(s) Allergy Type Date of Onset Reaction(s) Facility (1 source) Ibuprofen Drug Allergy 6 [facility] Repository (1 source) Sulfamethoxazole / Trimethoprim Drug Allergy 3 [facility] Rep[facility] (8 sources) Sulfonamides (Antibiotic) Drug Allergy 3 [facility] (1 source) Sulfamethoxazole / Trimethoprim; Translations: [Bactrim DS] Drug Allergy [facility] Repository Medications Current Medications Medication Drug Class(es) Dates Sig (Normalized) Sig (Original) [id number] 200 actuat albuterol 0.09 mg/actuat metered dose inhaler (10 sources) beta2-Adrenergic Agonist Start: 02-27-2024 End: 02-27-2024 take 2 puff(s) by inhalation every four hours for wheezing albuterol HFA 90 mcg/act inhaler Indications: Non-seasonal allergic rhinitis, unspecified trigger Inhale 2 puffs every 4 (four) hours if needed for wheezing 18 g 2 02/27/2024 Active azelastine hydrochloride 0.137 mg/actuat metered dose nasal [...] (Other) cetirizine hydrochloride 10 mg oral tablet (8 sources) Histamine-1 Receptor Antagonist Start: 11-24-2022 take 1 tablet by mouth once daily as needed cetirizine (ZyrTEC) 10 MG tablet Indications: Chronic pansinusitis TAKE 1 TABLET BY MOUTH EVERY DAY NEEDED 90 tablet 2 11/24/2022 Active estradiol 1 mg oral tablet (10 sources) Estrogen Start: 09-05-2023 End: 02-27-2024 take 1 tablet by mouth in the morning estradiol (Estrace) 1 MG tablet Indications: Asymptomatic menopausal state Take 1 tablet (1 mg) by mouth in the morning. 90 tablet 3 02/27/2024 Active famotidine 10 mg oral tablet (8 sources) Histamine-2 Receptor Antagonist take 1 tablet by mouth once daily famotidine (Pepcid) 10 MG tablet Take 10 mg by mouth Daily Active fexofenadine hydrochloride 180 mg oral tablet (8 sources) Histamine-1 Receptor Antagonist take 1 tablet by mouth twice daily as needed fexofenadine (Daniella Allergy) 180 MG tablet Take 180 mg by mouth 2 (two) times a day as needed Active fluconazole 200 mg oral tablet (2 sources) Azole Antifungal Start: 04-23-2024 End: 05-07-2024 take 1 tablet by mouth once daily fluconazole (Diflucan) 200 MG tablet Indications: Monilial vaginitis Take 1 tablet (200 mg) by mouth Daily for 14 days 14 tablet 04/23/2024 05/07/2024 Active fluticasone propionate 0.05 mg/actuat metered dose nasal spray (8 sources) Corticosteroid take 1 spray(s) nasal route in the morning fluticasone (Flonase) 50 MCG/ACT nasal spray Administer 1 spray into each nostril in the morning. Active 60 actuat fluticasone propionate 0.25 mg/actuat / salmeterol 0.05 mg/actuat dry powder inhaler (8 sources) Corticosteroid, beta2-Adrenergic Agonist Start: 11-21-2023 End: 05-19-2024 take 1 puff(s) by inhalation once daily Fluticasone-Salme terol (Advair Diskus) 250-50 MCG/ACT aerosol powder Indications: Moderate persistent asthma without complication (CMS/HCC) Inhale 1 puff Daily 180 each 1 11/21/2023 05/19/2024 Active metFORMIN hydrochloride 850 mg oral tablet (6 sources) Biguanide Start: 04-23-2024 End: 05-23-2024 take 1 tablet by mouth in the morning metFORMIN (Glucophage) 1000 MG tablet Indications: Type 2 diabetes mellitus with hyperglycemia, without long-term current use of insulin (CMS/HCC) Take 1 tablet (1,000 mg) by mouth in the morning and 1 tablet (1,000 mg) in the evening. Take with meals. 60 tablet 04/23/2024 05/23/2024 Active Start: 04-23-2024 End: 05-23-2024 take 1 tablet by mouth in the morning metFORMIN (Glucophage) 500 MG tablet Indications: Type 2 diabetes mellitus with hyperglycemia, without long-term current use of insulin (CMS/HCC) Take 1 tablet (500 mg) by mouth in the morning and 1 tablet (500 mg) in the evening. Take before meals. 60 tablet 04/23/2024 05/23/2024 Active Start: 04-23-2024 End: 05-23-2024 take 1 tablet by mouth in the morning metFORMIN (Glucophage) 850 MG tablet Indications: Type 2 diabetes mellitus with hyperglycemia, without long-term current use of insulin (CMS/HCC) Take 1 tablet (850 mg) by mouth in the morning and 1 tablet (850 mg) in the evening. Take before meals. 60 tablet 04/23/2024 05/23/2024 Active montelukast 10 mg oral tablet (10 sources) Leukotriene Receptor Antagonist Start: 11-21-2023 End: 08-25-2024 take 1 tablet by mouth at bedtime montelukast (Singulair) 10 MG tablet Indications: Moderate persistent asthma without complication (CMS/HCC) Take 1 tablet (10 mg) by mouth at bedtime 90 tablet 1 02/27/2024 08/25/2024 Active Multiple Vitamin (multivitamin) capsule (8 sources) take 1 capsule by mouth once daily Multiple Vitamin (multivitamin) capsule Take 1 capsule by mouth Daily Active Problems Active Problems Problem Classification Problem Date Documented Date Episodic/Chronic Asthma (20 sources) Unspecified asthma with (acute) exacerbation; Translations: [Uncomplicated moderate persistent asthma] Onset: 08-22-2022 Resolved: 11-21-2023 Chronic Diabetes mellitus with complications (4 sources) Hyperglycemia due to type 2 diabetes mellitus; Translations: [Type 2 diabetes mellitus with hyperglycemia] Onset: 04-26-2024 04-23-2024 Chronic Mycoses (2 sources) Candidiasis of vagina; Translations: [Monilial vaginitis] 04-26-2024 Episodic Other nutritional; endocrine; and metabolic disorders (4 sources) Morbid obesity; Translations: [Morbid (severe) obesity due to excess calories] Onset: 04-26-2024 04-26-2024 Chronic Other nutritional; endocrine; and metabolic disorders (2 sources) Body mass index 40+ - severely obese; Translations: [Body mass index (BMI) 40.0-44.9, adult] 04-26-2024 Chronic Other screening for suspected conditions (not mental disorders or infectious disease) (6 sources) Encounter for screening for malignant neoplasm of cervix; Translations: [Patient encounter status] Onset: 11-17-2021 Episodic Other skin disorders (1 source) Skin tag; Translations: [Other hypertrophic disorders of the skin] 04-05-2024 Episodic Other upper respiratory disease (10 sources) Allergic rhinitis; Translations: [Allergic rhinitis, unspecified] Onset: 12-21-2022 12-21-2022 Chronic Other upper respiratory infections (8 sources) Chronic pansinusitis; Translations: [Chronic pansinusitis] Onset: [...] Episodic Other nutritional; endocrine; and metabolic disorders (8 sources) Obese class III; Translations: [Class 3 obesity] Onset: 12-21-2022 Resolved: 11-21-2023 11-21-2023 Chronic Unclassified (1 source) CONTACT W/AND (SUSP) EXPOS COVID-19; Translations: [CONTACT W/AND (SUSP) EXPOS COVID-19] Onset: 05-03-2022 Varicose veins of lower extremity (8 sources) Venous varices; Translations: [Asymptomatic varicose veins of unspecified lower extremity] Onset: 11-15-2012 11-03-2022 Episodic Results Test Name Value Interpretation Reference Range Facility ALL LIPID PROFILE (FASTING)o n 04-23-2024 CHOL HDL RATIO 5.5 [facility] Comment on above: 3.3 - 4.4 LOW RISK 4.4 - 7.1 AVERAGE RISK 7.1 - 11.0 MODERATE RISK >11.0 HIGH RISK Cholesterol [Mass/Vol] 225 mg/dL High NINF - 200 mg/dL [facility] Cholesterol in HDL [Mass/Vol] 41 mg/dL 40 - 60 mg/dL [facility] Comment on above: > or =60 mg/dl - LOW CARDIOVASCULAR RISK <40 mg/dl - HIGH CARDIOVASCULAR RISK Magnesium [Mass/Vol] 138 mg/dL [facility] Comment on above: <100 mg/dl OPTIMAL 100-129 mg/dl NEAR OR ABOVE OPTIMAL 130-159 mg/dl BORDERLINE HIGH 160-189 mg/dl HIGH >190 mg/dl VERY HIGH Magnesium [Mass/Vol] 46.6 mg/dL [facility] Triglyceride [Mass/Vol] 233 mg/dL High NINF - 150 mg/dL [facility] CMP (CMP) (FOR REMOTE FH C USE)on 04-23-2024 Albumin [Mass/Vol] 3.3 g/dL Low 3.4 - 5.0 g/dL NO [facility] ALBUMIN GLOBULIN RATIO 0.7 [facility] ALP [Catalytic activity/Vol] 117 U/L High 46 - 116 U/L [facility] ALT [Catalytic activity/Vol] 137 U/L High 14 - 59 U/L [facility] Anion gap [Moles/Vol] 14.7 mmol/L [facility] AST [Catalytic activity/Vol] 152 U/L High 15 - 37 U/L [facility] Bilirubin [Mass/Vol] 0.6 mg/dL 0.2 - 1.0 mg/dL [facility] Calcium [Mass/Vol] 9.1 mg/dL 8.5 - 10. 1 mg/dL [facility] Chloride [Moles/Vol] 98 mmol/L 98 - 107 mmol/L [facility] CO2 [Moles/Vol] 25.6 mmol/L 21.0 - 32.0 mmol/L [facility] Creatinine [Mass/Vol] 0.96 mg/dL 0.55 - 1.02 mg/dL [facility] GFR/1.73 sq M.predicted CKD-EPI (S/P/Bld) [Vol rate/Area] >60 >=60 mL/min/1.73m 2 [facility] Globulin (S) [Mass/Vol] 4.5 g/dL [facility] Glucose [Mass/Vol] 421 mg/dL High 74 - 106 mg/dL NO [facility] Potassium [Moles/Vol] 4.3 mmol/L 3.5 - 5.1 mmol/L [facility] Protein [Mass/Vol] 7.8 g/dL 6.4 - 8.2 g/dL NO [facility] Sodium [Moles/Vol] 134 mmol/L Low 136 - 145 mmol/L [facility] TBH EGFR-NON AF NICARAGUAN >60 >=60 mL/min/1.73m 2 [facility] Urea nitrogen [Mass/Vol] 9 mg/dL 7.0 - 18.0 mg/dL [facility] Urea nitrogen/Creatinine [Mass ratio] 9.4 mg/mg [facility] No Panel Informationon 04-23 Interpretation and review of laboratory results [facility] Tzee e Pathology Request for Lab Co rpon 04-05-2024 Pathology Request for Lab Stephy Normal [facility] Comment on above: Order Comment: PATHO LOGY SKIN SPECIMEN Result Comment: See report. Scanned copy available in EMR. PERFORMED BY: [facility] [address] [place] [address] PATHOLOGIST OINTMENT MILL TENDER ANTONINO MARIA M.D. Performed By: #### P ATH TO [facility] #### [facility] [address] IGP,APTIMA HPV,AGE GDLNon AGE GDLN ACOG TESTING Note . [facility] Comment on above: TESTS RESULT FLAG UN ITS REF RANGE LAB Clinician Provided Cytology Information Source.............Vagina No. of containers..01 ThinPrep Vial Age Algo ACOG Georgina... 30-65 01 FLAG LEGEND: L-Low Normal,H-High Normal,LL-Alert Low,HH-Alert High <-Panic Low,>-Panic High,A-Abnormal,AA-Critical Abnormal Performed at: 01 =[address] [address] Leilani Hunter MD, HPV APTIMA Negative Negative [facility] Comment on above: This nucleic acid am plification test detects fourteen high- risk HPV types (16,18,31,33,35,39,45,51,52,56,58,59,66,68) without differentiation. Performed at: = - [address], [place] [id number] Turkey Cleaner: Leilani Hunter MD, Phone: [phone] Performed at: [address], [place] [id number] Turkey Cleaner: Leilani Hunter MD, Phone: [phone] IGP, APTIMA HPV, RFX 16/18,45 Note . [facility] Comment on above: TESTS RESULT FLAG UN ITS REF RANGE LAB DIAGNOSIS: 02 NEGATIVE FOR INTRAEPITHELIAL LESION OR MALIGNANCY. Specimen adequacy: 02 Satisfactory for evaluation. No endocervical component is identified. Performed by: 02 Yovana Espino, Outpatient Physical Therapist Assistant (ASCP) . 02 Note: Note 02 The [...] Low,>-Panic High,A-Abnormal,AA-Critical Abnormal Performed at: 02 [facility] [address] [place] [address] Leilain Hunter MD, SPATULA-ALONE VAGINA [facility] Cyt[facility] Cervical or vaginal smear or scraping studyon 02-27-2024 [facility] CARDIAC ANDRESSA ADMITon 023 CK [Catalytic activity/Vol] 70 U/L Normal 26-192 [facility] Comment on above: Performed By: #### C [place], CMADM #### [facility] [address] [address] [address] Ambrocio Rubio CK.MB [Mass/Vol] 0.93 ng/mL Normal <=3.60 [facility] Comment on above: Performed By: #### C [place], DIANADM #### [facility] [address] [place] [address] Dr. Ambrocio Rubio HSTROP 4.6 pg/mL Normal 4.0-51.3 [facility] Comment on above: Result Comment: CUT- OFF POINTS HAVE BEEN ESTABLISHED BASED ON THE FOURTH UNIVERSAL DEFINITIONS OF MYOCARDIAL INFARCTION. THE UPPER REFERENCE LIMIT (URL) OF TROPONIN, DEFINED THE 99TH PERCENTILE OF cTnI DISTRIBUTION IN A REFERENCE POPULATION, HAS BEEN CONFIRMED THE DECISION THRESHOLD FOR [place] DIAGNOSIS. Performed By: #### C [place], CMADM #### [facility] [address] [place] [address] Dr. Ambrocio Rubio MICHAEL 41 ng/mL Normal 9-82 [facility] Comment on above: Performed By: #### C [place], CMADM #### [facility] [address] [address] [address] Ambrocio Rubio CBC AUTO DIFFon 08-22-2022 BASO # 0.1 103/ul Normal 0.0-0.1 [facility] Comment on above: Performed By: #### C BC #### [facility] [address] [address] [address] Ambrocio Rubio Basophils/100 WBC (Bld) 0.9 % Normal 0.2-2.0 [facility] Comment on above: Performed By: #### C BC #### [facility] [address] [place] [address] Dr. Ambrocio Rubio EO # 0.8 103/ul Critically high 0.0-0.7 [facility] Comment on above: Performed By: #### C BC #### [facility] [address] [place] [address] Dr. Ambrocio Rubio Eosinophils/100 WBC (Bld) 8.3 % Critically high 0.9-7.0 [facility] Comment on above: Performed By: #### C BC #### [facility] [address] [place] [address] Dr. Ambrocio Rubio Erythrocyte distribution width (RBC) [Ratio] 13.3 % Normal 11.0-15.0 [facility] Comment on above: Performed By: #### C BC #### [facility] [address] [place] [address] Dr. Ambrocio Rubio Hematocrit (Bld) [Volume fraction] 42.9 % Normal 36.0-48.0 [facility] Comment on above: Performed By: #### C BC #### [facility] [address] [place] [address] Dr. Ambrocio Rubio Hemoglobin (Bld) [Mass/Vol] 14.2 g/dL Normal 12.0-16.0 [facility] Comment on above: Performed By: #### C BC #### [facility] [address] [place] [address] Dr. Ambrocio Rubio IG # 0.04 10e3/ul Critically high 0.00-0.03 [facility] Comment on above: Performed By: #### C BC #### [facility] [address] [place] [address] Dr. Ambrocio Rubio IG % 0.4 % Normal 0.0-0.5 [facility] Comment on above: Performed By: #### C BC #### [facility] [address] [place] [address] Dr. Ambrocio Rubio LYMPH # 4.3 103/ul Critically high 1.2-3.8 [facility] Comment on above: Performed By: #### C BC #### [facility] [address] [place] [address] Dr. Ambrocio Rubio Lymphocytes/100 WBC (Bld) 43.2 % Normal 20.5-60.0 [facility] Comment on above: Performed By: #### C BC #### [facility] [address] [place] [address] Dr. Ambrocio Rubio MANUAL DIFF REQ NO Normal [facility] Comment on above: Performed By: #### C BC #### [facility] [address] [place] [address] Dr. Ambrocio Rubio MCH (RBC) [Entitic mass] 28.5 pg Normal 26.7-34.0 [facility] Comment on above: Performed By: #### C BC #### [facility] [address] [place] [address] Dr. Ambrocio Rubio MCHC (RBC) [Mass/Vol] 33.1 g/dL Normal 29.9-35.2 [facility] Comment on above: Performed By: #### C BC #### [facility] [address] [place] [address] Dr. Ambrocio Rubio MCV (RBC) [Entitic vol] 86.0 fL Normal 81.0-99.0 [facility] Comment on above: Performed By: #### C BC #### [facility] [address] [place] [address] Dr. Ambrocio Rubio MONO # 0.6 103/ul Normal 0.3-0.8 [facility] Comment on above: Performed By: #### C BC #### [facility] [address] [place] [address] Dr. Ambrocio Rubio Monocytes/100 WBC (Bld) 6.0 % Normal 1.7-12.0 [facility] Comment on above: Performed By: #### C BC #### [facility] [address] [place] [address] Dr. Ambrocio Rubio NEUT # 4.1 103/ul Normal 1.4-6.5 [facility] Comment on above: Performed By: #### C BC #### [facility] [address] [address] [address] Ambrocio Rubio Neutrophils/100 WBC (Bld) 41.2 % Critically low 43.0-75.0 [facility] Comment on above: Performed By: #### C BC #### [facility] [address] [address] [address] Ambrocio Rubio Platelet mean volume (Bld) [Entitic vol] 10.1 fL Normal 9.5-13.5 [facility] Comment on above: Performed By: #### C BC #### [facility] [address] [address] [address] Ambrocio Rubio PLT 244 103/ul Normal 150-450 [facility] Comment on above: Performed By: #### C BC #### [facility] [address] [place] [address] Dr. Ambrocio Rubio RBC 4.99 106/ul Normal 4.20-5.40 [facility] Comment on above: Performed By: #### C BC #### [facility] [address] [place] [address] Dr. Ambrocio Rubio WBC 9.9 103/ul Normal 4.0-11.0 [facility] Comment on above: Performed By: #### C BC #### [facility] [address] [place] [address] Dr. Ambrocio Rubio PROF 14(COMP METB)on 023 Albumin [Mass/Vol] 3.7 g/dL Normal 3.4-5.0 [facility] Comment on above: Performed By: #### C YOJANA BARTHOLOMEW #### [facility] [address] [place] [address] Dr. Ambrocio Rubio Albumin/Globulin [Mass ratio] 0.8 {ratio} Normal [facility] Comment on above: Performed By: #### C YOJANA BARTHOLOMEW #### [facility] [address] [place] [address] Dr. Ambrocio Rubio ALP [Catalytic activity/Vol] 82 U/L Normal 46-116 [facility] Comment on above: Performed By: #### C MP, CMADM #### [facility] [address] [address] [address] Ambrocio Rubio ALT [Catalytic activity/Vol] 34 U/L Normal 14-59 [facility] Comment on above: Performed By: #### C MP, CMADM #### [facility] [address] [address] [address] Ambrocio Rubio Anion gap [Moles/Vol] 13.6 mmol/L Normal [facility] Comment on above: Performed By: #### C MP, CMADM #### [facility] [address] [address] [address] Ambrocio Rubio AST [Catalytic activity/Vol] 17 U/L Normal 15-37 [facility] Comment on above: Performed By: #### C [place], CMADM #### [facility] [address] [address] [address] Ambrocio Rubio Bilirubin [Mass/Vol] 0.3 mg/dL Normal 0.2-1.0 [facility] Comment on above: Performed By: #### C [place], CMADM #### [facility] [address] [address] [address] Ambrocio Rubio Calcium [Mass/Vol] 9.0 mg/dL Normal 8.5-10.1 [facility] Comment on above: Performed By: #### C [place], CMADM #### [facility] [address] [address] [address] Ambrocio Rubio Chloride [Moles/Vol] 104 mmol/L Normal 98-107 [facility] Comment on above: Performed By: #### C [place], CMADM #### [facility] [address] [address] [address] Ambrocio Rubio CO2 [Moles/Vol] 27.9 mmol/L Normal 21.0-32.0 [facility] Comment on above: Performed By: #### C [place], CMADM #### [facility] [address] [address] [address] Ambrocio Rubio Creatinine [Mass/Vol] 0.82 mg/dL Normal 0.55-1.02 [facility] Comment on above: Performed By: #### C MP, CMADM #### [facility] [address] [address] [address] Ambrocio Rubio EGFR-AF NICARAGUAN >60 Normal >=60 [facility] Comment on above: Performed By: #### C MP, CMADM #### [facility] [address] [address] [address] Ambrocio Rubio EGFR-NON AF NICARAGUAN >60 Normal >=60 [facility] Comment on above: Performed By: #### C MP, CMADM #### [facility] [address] [address] [address] Ambrocio Rubio Globulin (S) [Mass/Vol] 4.5 g/dL Normal [facility] Comment on above: Performed By: #### C MP, CMADM #### [facility] [address] [address] [address] Ambrocio Rubio Glucose [Mass/Vol] 140 mg/dL Critically high 74-106 [facility] Comment on above: Performed By: #### C MP, CMADM #### [facility] [address] [address] [address] Ambrocio Rubio Potassium [Moles/Vol] 3.5 mmol/L Normal 3.5-5.1 [facility] Comment on above: Performed By: #### C MP, CMADM #### [facility] [address] [address] [address] Ambrocio Rubio Protein [Mass/Vol] 8.2 g/dL Normal 6.4-8.2 [facility] Comment on above: Performed By: #### C MP, CMADM #### [facility] [address] [address] [address] Ambrocio Rubio Sodium [Moles/Vol] 142 mmol/L Normal 136-145 [facility] Comment on above: Performed By: #### C MP, CMADM #### [facility] [address] [address] [address] Ambrocio Rubio Urea nitrogen [Mass/Vol] 14.0 mg/dL Normal 7.0-18.0 [facility] Comment on above: Performed By: #### C [place], CMADM #### [facility] [address] [place], [place] [address] Dr. Ambrocio Rubio Urea nitrogen/Creatinine [Mass ratio] 17.1 mg/mg Normal [facility] Comment on above: Performed By: #### C [place], CMADM #### [facility] [address] [place], [place] [address] Dr. Ambrocio Rubio XR CHEST 1 Von 08-22-2022 XR CHEST 1 V EXAM: Chest x-ray HISTORY: . SHORTNESS OF BREATH . COMPARISON: None TECHNIQUE: Single view of the chest FINDINGS: Heart and vascularity are unremarkable. Lungs are free of focal infiltrates. No effusions are noted. IMPRESSION: No acute heart or lung disease identified. Electronically authenticated by: DEEPALI MAJOR Date: 2022-08-22 10:48 Normal [facility] [facility] Covid-19 PCR (CVDTB)on 04-15 SARS-CoV-2 (COVID-19) RNA JO+probe Ql (Unsp spec) Not detected Normal NOT DETECTED [facility] Comment on above: Result Comment: When diagnostic [...] for this test is supported by the Manager Willow of Health and Human Service's declaration that [...] longer be used). Performed By: #### C [id number] #### [facility] [address] [place], [place] [address] Dr. Ambrocio Rubio PAP ACOG PANEL 2: 30 to 65on 11-20-2021 . . Normal [facility] Comment on above: Result Comment: Perf ormed at: WB Performed By: #### [id number] #### [facility] [address] [place] [address] Dr. Ambrocio Rubio Age Gdln ACOG Testing 30-65 [facility] Comment on above: Performed By: #### [id number] #### [facility] [address] [place] [address] Dr. Ambrocio Rubio DIAGNOSIS: Comment Normal [facility] Comment on above: Result Comment: NEGA TIVE FOR INTRAEPITHELIAL LESION OR MALIGNANCY. Performed at: WB Performed By: #### [id number] #### [facility] [address] [place] [address] Dr. Ambrocio Rubio HPV Aptima Negative Normal [facility] Comment on above: Result Comment: This nucleic acid amplification test detects fourteen high-risk HPV types (16,18,31,33,35,39,45,51,52,56,58,59,66,68) without differentiation. Performed at: =G Performed By: #### [id number] #### [facility] [address] [place] [address] Dr. Ambrocio Rubio Methodology: Comment [facility] Comment on above: Result Comment: This liquid based ThinPrep(R) pap test was screened with the use of an image guided system. Performed at: WB Performed By: #### [id number] #### [facility] [address] [place] [address] Dr. Ambrocio Rubio Note: Comment [facility] Comment on above: Result Comment: The Pap smear is a screening test designed to aid in the detection of premalignant and malignant conditions of the uterine cervix. It is not a diagnostic procedure and should not be used as the sole means of detecting cervical cancer. Both false-positive and false-negative reports do occur. . Performed at: WB Performed By: #### [id number] #### [facility] [address] [place] [address] Dr. Ambrocio Rubio Performed by: Comment Normal [facility] Comment on above: Result Comment: Cind y Dionisio Alonzo, Outpatient Physical Therapist Assistant (ASCP) Performed at: WB Performed By: #### [id number] #### [facility] [address] [place] [address] [address] Ambrocio Rubio Specimen adequacy: Comment Normal [facility] Comment on above: Result Comment: Sati sfactory for evaluation. No endocervical component is identified. Performed at: WB Performed By: #### [id number] #### [facility] [address] [address] [address] Ambrocio Rubio Vital Signs Date Time Vital Sign Value Performing Clinician Faci lity 04-23-2024 09:21-0500 Body height 167.6 cm Kiko Holder MD Work Phone: [facility] 04-23-2024 09:21-0500 Body mass index (BMI) [Ratio] 44.22 kg/m2 Kiko Holder MD Work Phone: [facility] 04-23-2024 09:21-0500 Body weight 124.29 kg Kiko Holder MD Work Phone: [facility] 04-05-2024 11:41-0500 Body mass index (BMI) [Ratio] 44.22 kg/m2 Lluvia GAVIRIA Work Phone: [facility] 04-05-2024 11:41-0500 Body weight 124.29 kg Lluvia GAVIRIA Work Phone: [facility] 02-27-2024 08:47-0400 Body mass index (BMI) [Ratio] 44.84 kg/m2 Sina Mike DO Work Phone: [facility] 02-27-2024 08:47-0400 Body weight 126.01 kg Sina Mike DO Work Phone: [facility] 02-27-2024 08:47-0400 Diastolic blood pressure 74 mm[Hg] Sina Mike DO Work Phone: [facility] 02-27-2024 08:47-0400 Systolic blood pressure 122 mm[Hg] Sina Mike DO Work Phone: [facility] Encounters Encounter Date Encounter Type Care Provider Facility Start: 04-23-2024 End: 04-23-2024 Clinisync Result Encounter Kiko Holder MD Work Phone: [facility] Unsolicited Start: 04-23-2024 End: 04-23-2024 Clinisync Result Encounter Kiko Holder MD Work Phone: [facility] Unsolicited Start: 04-23-2024 End: 04-23-2024 Office outpatient visit 25 minutes Kiko Holder MD Work Phone: [facility] Comment on above: Type 2 diabetes jareth itus with hyperglycemia, without long-term current use of insulin ([facility]) (Primary Dx); Monilial vaginitis; Morbid obesity (CMS/[facility]); Body mass index (BMI) 40.0-44.9, adult ([facility]) Start: 04-23-2024 End: 04-23-2024 ambulatory KIKO HOLDER Not Available Start: 04-05-2024 End: 04-05-2024 Patient encounter procedure Lluvia GAVIRIA Work Phone: [facility] Comment on above: Skin tag Start: 04-05-2024 End: 04-05-2024 ambulatory Sina Mike Facility:[facility] Start: 03-05-2024 ambulatory Facility:[facility] Start: 02-29-2024 ambulatory Facility:[facility] Start: 02-27-2024 End: 02-27-2024 Bamboo flowsheet Sina Mike DO Work Phone: [facility] Start: 02-27-2024 End: 03-02-2024 Bamboo flowsheet Sina Mike DO Work Phone: [facility] Start: 02-27-2024 End: 03-02-2024 Clinisync Result Encounter Generic External Data Provider [facility] Unsolicited Start: 02-27-2024 End: 02-27-2024 ambulatory SINA MIKE Not Available Start: 02-27-2024 End: 02-27-2024 Patient encounter procedure Sina Mike DO Work Phone: [facility] Work Phone: Start: 02-27-2024 End: 02-27-2024 Periodic preventive med est patient 40-64yrs Sina Mckeon DO Work Phone: [facility] Comment on above: Well woman exam with routine gynecological exam; Breast cancer screening by mammogram; Asymptomatic menopausal state; Non-seasonal allergic rhinitis, unspecified trigger; Moderate persistent asthma without complication ([facility]) Start: 11-21-2023 End: 11-21-2023 ambulatory KIKO HOLDER Not Available Start: 08-22-2022 End: 08-22-[address] ELSA STOLL . Facility: Start: 05-03-2022 End: 05-03-2022 ambulatory DARIN BARRIOS Facility: Start: 11-17-2021 End: 11-17-[address] SUBHA GUERRERO . Facility: Procedures Date Procedure Procedure Detail Performing Clinician Start: 04-23-2024 ALL LIPID PROFILE (FASTING) Kiko Holder MD Work Phone: Start: 04-23-2024 [facility] CMP (CMP) (FOR [facility] USE) Kiko Holder MD Work Phone: Start: 02-27-2024 IGP,APTIMA HPV,AGE GDLN Sina Mckeon DO Work Phone: Start: 02-27-2024 Cytp cerv/vag auto t hin layer prep mnl screen Sina Mckeon DO Work Phone: Plan of Treatment Date Care Activity Detail Author Start: 02-28-2025 End: 02-28-2025 Patient encounter procedure 02/28/2025 10:00 AM EDT Office Visit [facility] [address] [place] [address] Sina Mckeon, DO [address] [place] [address] [facility] Start: 10-01-2024 End: 10-01-2024 Patient encounter procedure 10/01/2024 9:00 AM EDT Office Visit [facility] [address] [place] [address] Kiko Holder MD [address] [place] [address] (Fax) [facility] Start: 09-21-2024 End: 04-23-2025 Hemoglobin A1c/Hemoglobin.total in Blood Hemoglobin A1c Lab Routine Type 2 diabetes mellitus with hyperglycemia, without long-term current use of insulin ([facility]) Expected: 09/21/2024, Expires: 04/23/2025 [facility] Comment on above: Expected: 09/21/2024 , Expires: 04/23/2025 Start: 05-02-2024 End: 05-02-2024 Patient encounter procedure 05/02/2024 10:30 AM EST Office Visit [facility] [address] [place] [address] Kiko Holder MD [address] [place] [address] (Fax) [facility] Start: 04-23-2024 End: 04-23-2025 Hemoglobin A1c/Hemoglobin.total in Blood Hemoglobin A1c Lab Routine Type 2 diabetes mellitus with hyperglycemia, without long-term current use of insulin ([facility]) Expected: 04/23/2024 (Approximate), Expires: 04/23/2025 [facility] Work Phone: Comment on above: Expected: 04/23/2024 (Approximate), Expires: 04/23/2025 Start: 04-23-2024 End: 04-23-2024 Patient encounter procedure 04/23/2024 9:30 AM EST Office Visit [facility] [address] [place] [address] Kiko Holder MD [address] [place] [address] (Fax) [facility] Start: 04-05-2024 End: 04-05-2024 Patient encounter procedure 04/05/2024 11:00 AM EST Procedure Visit [facility] [address] [place] [id number] Lluvia Ortiz PA [address] [place] [address] [facility] Start: 02-27-2024 End: 04-28-2025 MG Breast - bilateral Screening Bilateral screening mammogram Imaging Routine Breast cancer screening by mammogram Expected: 02/27/2024 (Approximate), Expires: 04/28/2025 [facility] Work Phone: Comment on above: Expected: 02/27/2024 (Approximate), Expires: 04/28/2025 Start: 01-15-2024 Influenza vaccination Influenza Vacc ine (#1) [facility] Start: 2014 Screening for malignant neoplasm of breast Mammogram [facility] Start: 1993 Urine screening for protein Diabetes: Urine Protein Screening [facility] Start: 1984 Glaucoma screening Diabetes: R etinopathy Screening [facility] Start: 1974 Hemoglobin A1c measurement Diabetes: Hemoglobin A1C [facility] Start: 1974 Screening for malignant neoplasm of colon [facility] THIN PREP TIS PAP AN D HR HPV DNA THIN PREP TIS PAP AND HR HPV DNA Pathology and Cytology Routine Well woman exam with routine gynecological exam Ordered: 02/27/2024 [facility] Comment on above: Ordered: 02/27/2024 Immunizations Immunization Date Immunization Notes Care Provider Fa cility 02-16-2024 influenza, injectabl e, madin aime canine kidney, preservative free Kiko Holder MD Work Phone: [facility] 05-18-2000 hepatitis B vaccine, adult dosage Sina Mike DO Work Phone: [facility] 11-18-1999 hepatitis B vaccine, adult dosage Sina Mike DO Work Phone: [facility] 10-14-1999 hepatitis B vaccine, adult dosage Sina Mike DO Work Phone: [facility] 10-14-1999 measles, mumps and rubella virus vaccine Sina Mike DO Work Phone: [facility] 10-14-1999 TD(adult) unspecifie d formulation Sina Mike DO Work Phone: [facility] 08-05-1977 measles, mumps and rubella virus vaccine Sina Mike DO Work Phone: [facility] Payers Date Payer Category Payer Self-pay 2024 Unknown [id number] 2022 [facility] [id number] [id number] 2022 Unknown [id number] 2019 Unknown [id number] 1974 Unknown [id number] 2.16.84 [id number] 1974 Unknown [id number] 2.16.84 [id number] 1974 Unknown [id number] 2.16.84 [id number] 1974 Unknown [id number] 2.16.84 [id number] 1974 Unknown [id number] 2.16.84 [id number] 1974 Unknown [id number] 2.16.84 [id number] 1974 Unknown [id number] 2.16.84 [id number] Social History Date Type Detail Facility Start: 11-21-2023 Tobacco smoking stat [facility] Never smoked tobacco [facility] Start: 11-21-2023 Tobacco use and exposure Smoke less tobacco non-user [facility] Start: 11-21-2023 End: 04-23-2024 Alcoholic beverage intake Current drinker of alcohol (finding) [facility] Start: 11-04-2022 End: 11-21-2023 Alcoholic beverage intake [facility] Start: 11-04-2022 End: 11-21-2023 Tobacco use panel [facility] Start: 11-17-2022 Alcohol Comment Caffeine intak e: 1-2 cups per day [facility] Start: 1974 Sex assigned at Not on file [facility] History of Present illness Narrative 04-23-2024 Kiko Holder MD - 04/23/2024 9:30 AM EST Note Date & Type Note Facility 04-23-2024 History of Presen t illness Narrative Images from the original note were not included. Patient ID: Serina Horn is a 48 y.o. female who presents for: Pt states she saw is the new eye dr at [facility]'s office in December, she had new lenses. She states that since her distance vision has changed. She went back to eye dr and they checked her pressures and XR her eye and all normal. They are getting her new lenses but wanted her to follow up with PCP. Review of Systems Constitutional: Negative for chills and fever. Eyes: Positive for visual disturbance. Negative for pain, discharge and itching. Respiratory: Negative for cough, shortness of breath and wheezing. Cardiovascular: Negative for chest pain and palpitations. Gastrointestinal: Negative for abdominal pain. Genitourinary: Negative for frequency and urgency. Objective The patient is pleasant and in no acute distress. The heart is regular rate and rhythm without S3, S4. No murmur. The patient has normal respiratory pattern. The breath sounds are symmetrical without evidence of rhonchi or rales. No wheezing. The skin is warm and dry. The patient has good eye contact and speech is clear. Appropriate affect. Visit Vitals Ht 5' 6 Wt 274 lb BMI 44.22 kg/m OB Status Hysterectomy Smoking Status Never BSA 2.4 m Labs dated 04 23 24 are reviewed. Allergies Allergen Reactions Sulfa Antibiotics Other Reaction(s): Unknown Current Outpatient Medications on File Prior to Visit Medication Sig Dispense Refill albuterol HFA 90 mcg/act inhaler Inhale 2 puffs every 4 (four) hours if needed for wheezing 18 g 2 cetirizine (ZyrTEC) 10 MG tablet TAKE 1 TABLET BY MOUTH EVERY DAY NEEDED 90 tablet 2 estradiol (Estrace) 1 MG tablet Take 1 tablet (1 mg) by mouth in the morning. 90 tablet 3 famotidine (Pepcid) 10 MG tablet Take 10 mg by mouth Daily fexofenadine (Daniella Allergy) 180 MG tablet Take 180 mg by mouth 2 (two) times a day as needed fluticasone (Flonase) 50 MCG/ACT nasal spray Administer 1 spray into each nostril in the morning. Fluticasone-Salmeterol (Advair Diskus) 250-50 MCG/ACT aerosol powder Inhale 1 puff Daily 180 each 1 montelukast (Singulair) 10 MG tablet Take 1 tablet (10 mg) by mouth at bedtime 90 tablet 1 Multiple Vitamin (multivitamin) capsule Take 1 capsule by mouth Daily No current facility-administered medications on file prior to visit. 1. Type 2 diabetes mellitus with hyperglycemia, without long-term current use of insulin ([facility]) (Primary) Fasting blood sugar of 421 New, chronic problem, uncontrolled. I discussed with her the diagnosis and pathology. We discussed several treatment options. She mostly wanted to make the lifestyle changes. I discussed with her that with a fasting blood sugar this high we should start getting her on medications. My preference would be to ease her into metformin along with the lifestyle changes so that we can get good glycemic control. She understands she needs a hemoglobin A1c now. We will then check another 1 after she has been on the 1000 mg dose for at least 2 months. - Hemoglobin A1c; Future - metFORMIN (Glucophage) 850 MG tablet; Take 1 tablet (850 mg) by mouth in the morning and 1 tablet (850 mg) in the evening. Take before meals. Dispense: 60 tablet; Refill: 0 - metFORMIN (Glucophage) 500 MG tablet; Take 1 tablet (500 mg) by mouth in the morning and 1 tablet (500 mg) in the evening. Take before meals. Dispense: 60 tablet; Refill: 0 - metFORMIN (Glucophage) 1000 MG tablet; Take 1 tablet (1,000 mg) by mouth in the morning and 1 tablet (1,000 mg) in the evening. Take with meals. Dispense: 60 tablet; Refill: 0 - Hemoglobin A1c - Hemoglobin A1c; Future - Hemoglobin A1c 2. Monilial vaginitis Discussed how this is probably secondary from glucosuria. We discussed hygiene and using wipes for now after urinating. She has tried xtyv-zuk-dybpjhl yeast creams without improvement. In prescribing a new medication consideration of the following encompasses moderate decision making: the current prescriptions and supplements, the current allergies and medication intolerances, the current medical conditions, and potential drug interactions. Risks, benefits, and reason for starting their medication were discussed. The patient was given a chance to ask questions today and all questions were answered. The patient is to contact us if any other questions arise or if any problems occur with the adjustment in their medication. - fluconazole (Diflucan) 200 MG tablet; Take 1 tablet (200 mg) by mouth Daily for 14 days Dispense: 14 tablet; Refill: 0 3. Morbid obesity (CMS/[facility]) We did review how this affects the insulin resistance which has led to the diabetes. 4. Body mass index (BMI) 40.0-44.9, adult (CMS/[facility]) Defines the morbid obesity documented in this encounter [facility] History of Present illness Narrative 04-05-2024 [...] rhinitis 12/21/2022 Moderate persistent asthma without complication ([facility]/HCC) 11/21/2023 Resolved Ambulatory Problems Diagnosis Date Noted Asthma (CMS/HCC) 12/21/2022 Class 3 obesity 12/21/2022 Past Medical History: Diagnosis Date Breast cancer screening by mammogram 06/26/2020 Glaucoma ([facility]) Mild intermittent asthma (CMS/HCC) Recurrent maxillary sinusitis Suppurative otitis media HISTORY PAST MEDICAL HISTORY SOCIAL HISTORY Past Medical History: Diagnosis Date Allergic rhinitis Breast cancer screening by mammogram 06/26/2020 Glaucoma ([facility]) Mild intermittent asthma ([facility]/HCC) Recurrent maxillary sinusitis Suppurative otitis media Social [...] nursing note reviewed. Exam conducted with a detacker present. Vitals: Estimated body mass index is 44.84 kg/m as calculated from the following: Height as of 11/21/23: 5' 6 . Weight as of 02/27/24: 277 lb 12.8 oz. BP: No LMP recorded. Patient has had a hysterectomy. ASSESSMENT & PLAN ICD-10-CM 1. Skin tag L91.8 Skin Tag Removal: Patient presents today for skin tags being removed along her neck bilaterally. Patient signed consents for procedure. Area cleansed with alcohol, lidocaine injected after allowing sufficient time to take affect. grain picker and scissors used to remove affected area. Placed in formalin and sent to pathology. Post-procedure instructions given. Several skin tags removed on right and left side, which will be sent to Pathology for testing. Follow Up: as needed and for annual appointment. Documented by Sepiedh Guerra LPN on behalf of: EVERETTE Skinner [...] rhinitis 12/21/2022 Moderate persistent asthma without complication ([facility]/HCC) 11/21/2023 Resolved Ambulatory Problems Diagnosis Date Noted Asthma (CMS/HCC) 12/21/2022 Class 3 obesity 12/21/2022 Past Medical History: Diagnosis Date Breast cancer screening by mammogram 06/26/2020 Glaucoma (CMS/[facility]) Mild intermittent asthma (CMS/HCC) Recurrent maxillary sinusitis Suppurative otitis media HISTORY PAST MEDICAL HISTORY SOCIAL HISTORY Past Medical History: Diagnosis Date Allergic rhinitis Breast cancer screening by mammogram 06/26/2020 Glaucoma (CMS/[facility]) Mild intermittent asthma (CMS/[facility]) Recurrent maxillary sinusitis Suppurative otitis media Social [...] nursing note reviewed. Exam conducted with a detacker present. Vitals: Estimated body mass index is [...] Sina Mckeon DO documented in this encounter [facility] Evaluation note Note Date & Type Note Facility Evaluation note Diagnosis Well woman exam with routine gynecological exam Routine gynecological examination Breast cancer screening by mammogram Asymptomatic menopausal state Non-seasonal allergic rhinitis, unspecified trigger Moderate persistent asthma without complication ([facility]) documented in this encounter [facility] Evaluation note Note Date & Type Note Facility Evaluation note Diagnosis Skin tag Unspecified hypertrophic and atrophic condition of skin documented in this encounter [facility] Evaluation note Note Date & Type Note Facility Evaluation note Diagnosis Type 2 diabetes mellitus with hyperglycemia, without long-term current use of insulin ([facility])- Primary Monilial vaginitis Morbid obesity ([facility]) Morbid obesity Body mass index (BMI) 40.0-44.9, adult ([facility]) documented in this encounter [facility] Summary Purpose Family History No Family History Records FoundNo Family History Records FoundNo Family History Records FoundNo Family History Records Found Advance Directives No Advanced Directives Records FoundNo Advanced Directives Records FoundNo Advanced Directives Records FoundNo Advanced Directives Records Found Additional Source Comments INFORMATION SOURCE (unrecogn ized section and content) DATE CREATED AUTHOR 08/24/2022 Phyllis adame DATE CREATED AUTHOR AUTHOR'S ORGANIZ ATION 03/07/2024 [facility] DATE CREATED AUTHOR AUTHOR'S ORGANIZ ATION 04/13/2024 [facility] DATE CREATED AUTHOR AUTHOR'S ORGANIZ ATION 04/26/2024 [facility] Care Teams (unrecognized sec tion and content) Orthodontic Lab Technician Relationship Specialty Start Date End Date Kiko Holder MD [address] [place] [address] PCP - General Family Medicine 11/03/22 Kiko Holder MD [address] [place] [address] (Fax) PCP - [place] [employer] 12/14/22 Orthodontic Lab Technician Relationship Specialty Start Date End Date Kiko Holder MD [address] [place] [address] PCP - General Family Medicine 11/03/22 Kiko Holder MD [address] [place] [address] (Fax) PCP - [place] [employer] 12/14/22 Orthodontic Lab Technician Relationship Specialty Start Date End Date Kiko Holder MD [address] [place] [address] PCP - General Family Medicine 11/03/22 Kiko Holder MD [address] [place] [address] (Fax) PCP - [place] [employer] 12/14/22 Orthodontic Lab Technician Relationship Specialty Start Date End Date Kiko Holder MD (Fax) PCP - General Family Medicine 11/03/22 Kiko Holder MD [address] [address] (Fax) PCP - [place] 12/14/22 Orthodontic Lab Technician Relationship Specialty Start Date End Date Kiko Holder MD (Fax) PCP - General Family Medicine 11/03/22 Kiko Holder MD [address] [address] (Fax) PCP - [place] 12/14/22 Orthodontic Lab Technician Relationship Specialty Start Date End Date Kiko Holder MD (Fax) PCP - General Family Medicine 11/03/22 Kiko Holder MD [address] [address] (Fax) PCP - [place] 12/14/22 Reason for Visit (unrecogniz ed section and content) Reason Comments Well Women Visit Reason Comments Skin Tag Pt present today for a skin tag removal visit. Reason Comments Eye Problem FOR RECORDS PERTAINING TO PATIENTS WHO ARE [...] BE BASED ON THE PRIMARY CLINICAL RECORDS. [employer] [facility]. provides no warranty or guarantee of the accuracy or completeness of information in this document.
[2024-05-01 13:19] LABS: Estimated Average Glucose 269 mg/dL
== END 2024-05-01 12:32 | disposition home or self-care (01) ==
LOC: LAB 12:33
PROVIDERS: PCP Family Medicine; Visit Provider Family Medicine
DX: E11.65 Type 2 diabetes mellitus with hyperglycemia (principal)
CPT/HCPCS: 36415; 83036

== ENCOUNTER 2024-07-31 08:24 | Outpatient (OUT) | payer BC, SELFPAY ==
--- OUTSIDE RECORDS SUMMARY | 2024-07-31 08:41 | XMS_ITS | CCD ---
Author Organization [facility] Care Team Providers Care Patient Placement Coordinator Name Role Phone JERMAN ., DR ELSA Yee Primary Care Unavailable DIAB ., CHRISTOPHE Admitting Unavailable DIAB ., CHRISTOPHE Attending Unavailable DEEPALI MAJOR Consulting Unavailable DIAB ., CHRISTOPHE Consulting Unavailable SOPHIEDARIN BRINK Admitting Unavailable DARIN BARRIOS Attending Unavailable JERMAN ., DR ELSA Yee Primary Care Unavailable DARIN BARRIOS Consulting Unavailable YOLANDA ., DR MASCORRO Admitting Unavailyissel GUERRERO ., DR MASCORRO Attending Unavailyissel STOLL ., DR ELSA Yee Primary Care Unavailable KARASIK ., DR MASCORRO Consulting UnavailKiko Page MD Primary Care Provider [phone] Kiko Holder MD Unavailable [phone] Kiko Holder MD Primary Care Provider Kiko Holder MD Unavailable Sina Mckeon Attending Unavailable Sina Mckeon Admitting Unavailable Kiko Holder MD Unavailable KIKO HOLDER Attending Unavailable SINA MCKEON Attending Unavailable LLUVIA ORTIZ Attending Unavailable KIKO HOLDER Attending Unavailable KIKO HOLDER Attending Unavailable Allergies Allergy Classification Reported Allergen(s) Allergy Type Date of Onset Reaction(s) Facility (1 source) Ibuprofen Drug Allergy 6 [facility] (1 source) Sulfamethoxazole / Trimethoprim Drug Allergy 3 [facility] (13 sources) Sulfonamides (Antibiotic) Drug Allergy 3 [facility] (1 source) Sulfamethoxazole / Trimethoprim; Translations: [Bactrim DS] Drug Allergy [facility] Repository Medications Current Medications Medication Drug Class(es) Dates Sig (Normalized) Sig (Original) [id number] 200 actuat albuterol 0.09 mg/actuat metered dose inhaler (15 sources) beta2-Adrenergic Agonist Start: 02-27-2024 End: 02-27-2024 [...] 90 mL 1 11/21/2023 02/27/2024 Discontinued (Other) cefuroxime 500 mg oral tablet (1 source) Cephalosporin Antibacterial Start: 05-17-2024 End: 05-24-2024 take 1 tablet by mouth in the morning cefuroxime (Ceftin) 500 MG tablet Indications: Acute non-recurrent sinusitis, unspecified location Take 1 tablet (500 mg) by mouth in the morning and 1 tablet (500 mg) before bedtime. Do all this for 7 days. 14 tablet 05/17/2024 05/24/2024 Active cetirizine hydrochloride 10 mg oral tablet (13 sources) Histamine-1 Receptor Antagonist Start: 11-24-2022 take 1 tablet by mouth once daily as needed cetirizine (ZyrTEC) 10 MG tablet Indications: Chronic pansinusitis TAKE 1 TABLET BY MOUTH EVERY DAY NEEDED 90 tablet 2 11/24/2022 Active estradiol 1 mg oral tablet (15 sources) Estrogen Start: 09-05-2023 End: 02-27-2024 take 1 tablet by mouth in the morning estradiol (Estrace) 1 MG tablet Indications: Asymptomatic menopausal state Take 1 tablet (1 mg) by mouth in the morning. 90 tablet 3 02/27/2024 Active famotidine 10 mg oral tablet (13 sources) Histamine-2 Receptor Antagonist take 1 tablet by mouth once daily famotidine (Pepcid) 10 MG tablet Take 10 mg by mouth Daily Active fexofenadine hydrochloride 180 mg oral tablet (13 sources) Histamine-1 Receptor Antagonist take 1 tablet by mouth twice daily as needed fexofenadine (Daniella Allergy) 180 MG tablet Take 180 mg by mouth 2 (two) times a day as needed Active fluticasone propionate 0.05 mg/actuat metered dose nasal spray (13 sources) Corticosteroid take 1 spray(s) nasal route in the morning fluticasone (Flonase) 50 MCG/ACT nasal spray Administer 1 spray into each nostril in the morning. Active 60 actuat fluticasone propionate 0.25 mg/actuat / salmeterol 0.05 mg/actuat dry powder inhaler (13 sources) Corticosteroid, beta2-Adrenergic Agonist Start: 11-21-2023 End: 05-19-2024 take 1 puff(s) by inhalation once daily Fluticasone-Salme terol (Advair Diskus) 250-50 MCG/ACT aerosol powder Indications: Moderate persistent asthma without complication (CMS/HCC) Inhale 1 puff Daily 180 each 1 11/21/2023 05/19/2024 Active metFORMIN hydrochloride 850 mg oral tablet (20 sources) Biguanide Start: 04-23-2024 End: 05-23-2024 take [...] 05/23/2024 Active montelukast 10 mg oral tablet (15 sources) Leukotriene Receptor Antagonist Start: 11-21-2023 End: 08-25-2024 take 1 tablet by mouth at bedtime montelukast (Singulair) 10 MG tablet Indications: Moderate persistent asthma without complication (CMS/HCC) Take 1 tablet (10 mg) by mouth at bedtime 90 tablet 1 02/27/2024 08/25/2024 Active Multiple Vitamin (multivitamin) capsule (13 sources) take 1 capsule by mouth once daily Multiple Vitamin (multivitamin) capsule Take 1 capsule by mouth Daily Active nabumetone 750 mg oral tablet (3 sources) Nonsteroidal Anti-inflammatory Drug Start: 05-02-2024 End: 06-01-2024 take 1 tablet by mouth in the morning nabumetone (Relafen) 750 MG tablet Indications: Rotator cuff syndrome of left shoulder Take 1 tablet (750 mg) by mouth in the morning and 1 tablet (750 mg) before bedtime. 60 tablet 05/02/2024 06/01/2024 Active Completed/Discontinued Medications Medication Drug Class(es) Dates Sig (Normalized) Sig (Original) fluconazole 200 mg oral tablet (6 sources) Azole Antifungal Start: 04-23-2024 End: 05-07-2024 take 1 tablet by mouth once daily fluconazole (Diflucan) 200 MG tablet Indications: Monilial vaginitis Take 1 tablet (200 mg) by mouth Daily for 14 days 14 tablet 04/23/2024 05/07/2024 Problems Active Problems Problem Classification Problem Date Documented Date Episodic/Chronic Asthma (20 sources) Unspecified asthma with (acute) exacerbation; Translations: [Uncomplicated moderate persistent asthma] Onset: 08-22-2022 Resolved: 11-21-2023 Chronic Diabetes mellitus with complications (9 sources) Hyperglycemia due to type 2 diabetes mellitus; Translations: [Type 2 diabetes mellitus with hyperglycemia] Onset: 04-26-2024 04-23-2024 Chronic Mycoses (2 sources) Candidiasis of vagina; Translations: [Monilial vaginitis] 04-26-2024 Episodic Other connective tissue disease (2 sources) Left rotator cuff syndrome; Translations: [Unspecified rotator cuff tear or rupture of left shoulder, not specified as traumatic] 05-02-2024 Episodic Other nutritional; endocrine; and metabolic disorders (9 sources) Morbid obesity; Translations: [Morbid (severe) obesity [...] skin] 04-05-2024 Episodic Other upper respiratory disease (15 sources) Allergic rhinitis; Translations: [Allergic rhinitis, unspecified] Onset: 12-21-2022 12-21-2022 Chronic Other upper respiratory infections (13 sources) Chronic pansinusitis; Translations: [Chronic pansinusitis] Onset: 11-03-2022 11-03-2022 Chronic Other upper respiratory infections (1 source) Acute sinusitis; Translations: [Acute sinusitis, unspecified] 05-17-2024 Episodic Residual codes; unclassified (2 sources) Menopause present; [...] Episodic Other nutritional; endocrine; and metabolic disorders (13 sources) Obese class III; Translations: [Class 3 obesity] Onset: 12-21-2022 Resolved: 11-21-2023 11-21-2023 Chronic Unclassified (1 source) CONTACT W/AND (SUSP) EXPOS COVID-19; Translations: [CONTACT W/AND (SUSP) EXPOS COVID-19] Onset: 05-03-2022 Varicose veins of lower extremity (13 sources) Venous varices; Translations: [Asymptomatic varicose veins of unspecified lower extremity] Onset: 11-15-2012 11-03-2022 Episodic Results Test Name Value Interpretation Reference Range Facility [facility]LR HEMOGLOBIN A1Con 024 Glucose [Mass/Vol] 269 mg/dL [facility] HbA1c (Bld) [Mass fraction] 11 % High 4.5 - 6.2 % [facility] Comment on above: REPEATED FOR VERIFIC ATION ADA RECOMMENDED LIMIT 4.0 - 6.0 ADA THERAPEUTIC TARGET < 7.0 ACTION SUGGESTED > 7.0 Interpretation and review of laboratory results Abnormal [facility] ALL LIPID PROFILE (FASTING)o n 04-23-2024 CHOL [facility] [facility] Comment on above: 3.3 - 4.4 LOW RISK 4.4 - 7.1 AVERAGE RISK 7.1 - 11.0 MODERATE RISK >11.0 HIGH RISK Cholesterol [Mass/Vol] 225 mg/dL High NINF - 200 mg/dL [facility] Cholesterol in HDL [Mass/Vol] 41 mg/dL 40 - 60 mg/dL [facility] Comment on above: > or =60 mg/dl - LOW CARDIOVASCULAR RISK <40 mg/dl - HIGH CARDIOVASCULAR RISK Magnesium [Mass/Vol] 138 mg/dL [facility] Comment on above: <100 mg/dl OPTIMAL 100-129 mg/dl NEAR OR ABOVE OPTIMAL 130-159 mg/dl BORDERLINE HIGH 160-189 mg/dl HIGH >190 mg/dl VERY HIGH Magnesium [Mass/Vol] 46.6 mg/dL [facility] Triglyceride [Mass/Vol] 233 mg/dL High NINF - 150 mg/dL [facility] CMP (CMP) (FOR REMOTE FH C USE)on 04-23-2024 Albumin [Mass/Vol] 3.3 g/dL Low 3.4 - 5.0 g/dL [facility] ALBUMIN GLOBULIN RATIO 0.7 [facility] ALP [Catalytic activity/Vol] 117 U/L High 46 - 116 U/L [facility] ALT [Catalytic activity/Vol] 137 U/L High 14 - 59 U/L [facility] Anion gap [Moles/Vol] 14.7 mmol/L [facility] AST [Catalytic activity/Vol] 152 U/L High 15 - 37 U/L [facility] Bilirubin [Mass/Vol] 0.6 mg/dL 0.2 - 1.0 mg/dL [facility] Calcium [Mass/Vol] 9.1 mg/dL 8.5 - 10. 1 mg/dL [facility] Chloride [Moles/Vol] 98 mmol/L 98 - 107 mmol/L [facility] CO2 [Moles/Vol] 25.6 mmol/L 21.0 - 32.0 mmol/L [facility] Creatinine [Mass/Vol] 0.96 mg/dL 0.55 - 1.02 mg/dL [facility] GFR/1.73 sq M.predicted CKD-EPI (S/P/Bld) [Vol rate/Area] >60 >=60 mL/min/1.73m 2 [facility] Globulin (S) [Mass/Vol] 4.5 g/dL [facility] Glucose [Mass/Vol] 421 mg/dL High 74 - 106 mg/dL NO [facility] Potassium [Moles/Vol] 4.3 mmol/L 3.5 - 5.1 mmol/L [facility] Protein [Mass/Vol] 7.8 g/dL 6.4 - 8.2 g/dL NO [facility] Sodium [Moles/Vol] 134 mmol/L Low 136 - 145 mmol/L [facility] TBH EGFR-NON AF FRENCH >60 >=60 mL/min/1.73m 2 [facility] Urea nitrogen [Mass/Vol] 9 mg/dL 7.0 - 18.0 mg/dL [facility] Urea nitrogen/Creatinine [Mass ratio] 9.4 mg/mg [facility] No Panel Informationon 04-23 Interpretation and review of laboratory results [facility] Request for Lab Co rpon 04-05-2024 Pathology Request for Lab Stephy Normal [facility] Comment on above: Order Comment: PATHO LOGY SKIN SPECIMEN Result Comment: See report. Scanned copy available in EMR. PERFORMED BY: [facility] [place] [address] PATHOLOGIST MATTRESS MAKER ANTONINO MARIA M.D. Performed By: #### P ATH TO LABCO #### [facility] [address] IGP,APTIMA HPV,AGE GDLNon AGE GDLN ACOG TESTING Note . [facility] Comment on above: TESTS RESULT FLAG UN ITS REF RANGE LAB Clinician Provided Cytology Information Source.............Vagina No. of containers..01 ThinPrep Vial Age Algo ACOG Georgina... FLAG LEGEND: L-Low Normal,H-High Normal,LL-Alert Low,HH-Alert High <-Panic Low,>-Panic High,A-Abnormal,AA-Critical Abnormal Performed at: 01 =G [address] [address] Leilani Hunter MD, HPV APTIMA Negative Negative [facility] e Comment on above: This nucleic acid am plification test detects fourteen high- risk HPV types (16,18,31,33,35,39,45,51,52,56,58,59,66,68) without differentiation. Performed at: =[address] [id number] Combination Welder: Leilani Hunter MD, Phone: [phone] Performed at: [address], [place] [id number] Combination Welder: Leilani Hunter MD, Phone: [phone] IGP, APTIMA HPV, RFX 16/18,45 Note . [facility] Comment on above: TESTS RESULT FLAG U NITS REF RANGE LAB DIAGNOSIS: 02 NEGATIVE FOR INTRAEPITHELIAL LESION OR MALIGNANCY. Specimen adequacy: 02 Satisfactory for evaluation. No endocervical component is identified. Performed by: 02 Yovana Espino, Rn Licensed Practical (ASC) . 02 Note: Note 02 The Pap [...] High,A-Abnormal,AA-Critical Abnormal Performed at: 02 [facility] [address] [place] [address] Leilani Hunter MD, SPATULA-ALONE VAGINA [facility] Cytology Cervical or vaginal smear or scraping studyon 02-27-2024 [facility] e CARDIAC ANDRESSA ADMITon 023 CK [Catalytic activity/Vol] 70 U/L Normal 26-192 [facility] Comment on above: Performed By: #### C YOJANA BARTHOLOMEW #### [facility] [address] [address] [address] Ambrocio Rubio CK.MB [Mass/Vol] 0.93 ng/mL Normal <=3.60 [facility] Comment on above: Performed By: #### C YOJANA BARTHOLOMEW #### [facility] [address] [address] [address] Ambrocio Rubio HSTROP 4.6 pg/mL Normal 4.0-51.3 [facility] Comment on above: Result Comment: CUT- OFF POINTS HAVE BEEN ESTABLISHED BASED ON THE FOURTH UNIVERSAL DEFINITIONS OF MYOCARDIAL INFARCTION. THE UPPER REFERENCE LIMIT (URL) OF TROPONIN, DEFINED THE 99TH PERCENTILE OF cTnI DISTRIBUTION IN A REFERENCE POPULATION, HAS BEEN CONFIRMED THE DECISION THRESHOLD FOR [place] DIAGNOSIS. Performed By: #### C YOJANA BARTHOLOMEW #### [facility] [address] [address] [address] Ambrocio Rubio MICHAEL 41 ng/mL Normal 9-82 [facility] Comment on above: Performed By: #### C YOJANA BARTHOLOMEW #### [facility] [address] [place] [address] Dr. Ambrocio Rubio CBC AUTO DIFFon 08-22-2022 BASO # 0.1 103/ul Normal 0.0-0.1 [facility] Comment on above: Performed By: #### C BC #### [facility] [address] [place] [address] Dr. Ambrocio Rubio Basophils/100 WBC (Bld) 0.9 % Normal 0.2-2.0 [facility] Comment on above: Performed By: #### C BC #### [facility] [address] [place] [address] Dr. Ambrocio Rubio EO # 0.8 103/ul Critically high 0.0-0.7 [facility] Comment on above: Performed By: #### C BC #### [facility] [address] [address] [address] Ambrocio Rubio Eosinophils/100 WBC (Bld) 8.3 % Critically high 0.9-7.0 [facility] Comment on above: Performed By: #### C BC #### [facility] [address] [place] [address] Dr. Ambrocio Rubio Erythrocyte distribution width (RBC) [Ratio] 13.3 % Normal 11.0-15.0 [facility] Comment on above: Performed By: #### C BC #### [facility] [address] [place] [address] Dr. Ambrocio Rubio Hematocrit (Bld) [Volume fraction] 42.9 % Normal 36.0-48.0 [facility] Comment on above: Performed By: #### C BC #### [facility] [address] [place] [address] Dr. Ambrocio Rubio Hemoglobin (Bld) [Mass/Vol] 14.2 g/dL Normal 12.0-16.0 [facility] Comment on above: Performed By: #### C BC #### [facility] [address] [place] [address] Dr. Ambrocio Rubio IG # 0.04 10e3/ul Critically high 0.00-0.03 [facility] Comment on above: Performed By: #### C BC #### [facility] [address] [place] [address] Dr. Ambrocio Rubio IG % 0.4 % Normal 0.0-0.5 [facility] Comment on above: Performed By: #### C BC #### [facility] [address] [place] [address] Dr. Ambrocio Rubio LYMPH # 4.3 103/ul Critically high 1.2-3.8 [facility] Comment on above: Performed By: #### C BC #### [facility] [address] [place] [address] Dr. Ambrocio Rubio Lymphocytes/100 WBC (Bld) 43.2 % Normal 20.5-60.0 [facility] Comment on above: Performed By: #### C BC #### [facility] [address] [place] [address] Dr. Ambrocio Rubio MANUAL DIFF REQ NO Normal [facility] Comment on above: Performed By: #### C BC #### [facility] [address] [place] [address] Dr. Ambrocio Rubio MCH (RBC) [Entitic mass] 28.5 pg Normal 26.7-34.0 [facility] Comment on above: Performed By: #### C BC #### [facility] [address] [place] [address] Dr. Ambrocio Rubio MCHC (RBC) [Mass/Vol] 33.1 g/dL Normal 29.9-35.2 [facility] Comment on above: Performed By: #### C BC #### [facility] [address] [place] [address] Dr. Ambrocio Rubio MCV (RBC) [Entitic vol] 86.0 fL Normal 81.0-99.0 [facility] Comment on above: Performed By: #### C BC #### [facility] [address] [place] [address] Dr. Ambrocio Rubio MONO # 0.6 103/ul Normal 0.3-0.8 [facility] Comment on above: Performed By: #### C BC #### [facility] [address] [place] [address] Dr. Ambrocio Rubio Monocytes/100 WBC (Bld) 6.0 % Normal 1.7-12.0 [facility] Comment on above: Performed By: #### C BC #### [facility] [address] [place] [address] Dr. Ambrocio Rubio NEUT # 4.1 103/ul Normal 1.4-6.5 [facility] Comment on above: Performed By: #### C BC #### [facility] [address] [place] [address] Dr. Ambrocio Rubio Neutrophils/100 WBC (Bld) 41.2 % Critically low 43.0-75.0 [facility] Comment on above: Performed By: #### C BC #### [facility] [address] [place] [address] Dr. Ambrocio Rubio Platelet mean volume (Bld) [Entitic vol] 10.1 fL Normal 9.5-13.5 [facility] Comment on above: Performed By: #### C BC #### [facility] [address] [place] [address] Dr. Ambrocio Rubio PLT 244 103/ul Normal 150-450 [facility] Comment on above: Performed By: #### C BC #### [facility] [address] [place] [address] Dr. Ambrocio Rubio RBC 4.99 106/ul Normal 4.20-5.40 [facility] Comment on above: Performed By: #### C BC #### [facility] [address] [place] [address] Dr. Ambrocio Rubio WBC 9.9 103/ul Normal 4.0-11.0 [facility] Comment on above: Performed By: #### C BC #### [facility] [address] [place] [address] Dr. Ambrocio Rubio PROF 14(COMP METB)on 023 Albumin [Mass/Vol] 3.7 g/dL Normal 3.4-5.0 [facility] Comment on above: Performed By: #### C YOJANA BARTHOLOMEW #### [facility] [address] [place] [address] Dr. Ambrocio Rubio Albumin/Globulin [Mass ratio] 0.8 {ratio} Normal [facility] Comment on above: Performed By: #### C YOJANA BARTHOLOMEW #### [facility] [address] [place] [address] Dr. Ambrocio Rubio ALP [Catalytic activity/Vol] 82 U/L Normal 46-116 [facility] Comment on above: Performed By: #### C YOJANA BARTHOLOMEW #### [facility] [address] [place] [address] Dr. Ambrocio Rubio ALT [Catalytic activity/Vol] 34 U/L Normal 14-59 [facility] Comment on above: Performed By: #### C YOJANA BARTHOLOMEW #### [facility] [address] [place] [address] Dr. Ambrocio Rubio Anion gap [Moles/Vol] 13.6 mmol/L Normal [facility] Comment on above: Performed By: #### C DIANA BARTHOLOMEWDM #### [facility] [address] [place] [address] Dr. Ambrocio Rubio AST [Catalytic activity/Vol] 17 U/L Normal 15-37 [facility] Comment on above: Performed By: #### C [place]OR[place], DIANADM #### [facility] [address] [place] [address] Dr. Ambrocio Rubio Bilirubin [Mass/Vol] 0.3 mg/dL Normal 0.2-1.0 [facility] Comment on above: Performed By: #### C DIANA BARTHOLOMEWDM #### [facility] [address] [place] [address] Dr. Ambrocio Rubio Calcium [Mass/Vol] 9.0 mg/dL Normal 8.5-10.1 [facility] Comment on above: Performed By: #### C YOJANA BARTHOLOMEW #### [facility] [address] [place] [address] Dr. Ambrocio Rubio Chloride [Moles/Vol] 104 mmol/L Normal 98-107 [facility] Comment on above: Performed By: #### C YOJANA BARTHOLOMEW #### [facility] [address] [place] [address] Dr. Ambrocio Rubio CO2 [Moles/Vol] 27.9 mmol/L Normal 21.0-32.0 [facility] Comment on above: Performed By: #### C YOJANA BARTHOLOMEW #### [facility] [address] [place] [address] Dr. Ambrocio Rubio Creatinine [Mass/Vol] 0.82 mg/dL Normal 0.55-1.02 [facility] Comment on above: Performed By: #### C DIANA BARTHOLOMEWDM #### [facility] [address] [place] [address] Dr. Ambrocio Rubio EGFR-AF FRENCH >60 Normal >=60 [facility] Comment on above: Performed By: #### C YOJANA BARTHOLOMEW #### [facility] [address] [place] [address] Dr. Ambrocio Rubio EGFR-NON AF FRENCH >60 Normal >=60 [facility] Comment on above: Performed By: #### C [place], YOJANA #### [facility] [address] [address] [address] Ambrocio Rubio Globulin (S) [Mass/Vol] 4.5 g/dL Normal [facility] Comment on above: Performed By: #### C [place], DIANADM #### [facility] [address] [address] [address] Ambrocio Rubio Glucose [Mass/Vol] 140 mg/dL Critically high 74-106 [facility] Comment on above: Performed By: #### C [place], YOJANA #### [facility] [address] [place] [address] Dr. Ambrocio Rubio Potassium [Moles/Vol] 3.5 mmol/L Normal 3.5-5.1 [facility] Comment on above: Performed By: #### C YOJANA BARTHOLOMEW #### [facility] [address] [place] [address] Dr. Ambrocio Rubio Protein [Mass/Vol] 8.2 g/dL Normal 6.4-8.2 [facility] Comment on above: Performed By: #### C YOJANA BARTHOLOMEW #### [facility] [address] [place] [address] Dr. Ambrocio Rubio Sodium [Moles/Vol] 142 mmol/L Normal 136-145 [facility] Comment on above: Performed By: #### C [place], YOJANA #### [facility] [address] [place] [address] Dr. Ambrocio Rubio Urea nitrogen [Mass/Vol] 14.0 mg/dL Normal 7.0-18.0 [facility] Comment on above: Performed By: #### C YOJANA BARTHOLOMEW #### [facility] [address] [place] [address] Dr. Ambrocio Rubio Urea nitrogen/Creatinine [Mass ratio] 17.1 mg/mg Normal [facility] Comment on above: Performed By: #### C YOJANA BARTHOLOMEW #### [facility] [address] [address] [address] Ambrocio Rubio XR CHEST 1 Von 08-22-2022 XR CHEST 1 V EXAM: Chest x-ray HISTORY: . SHORTNESS OF BREATH . COMPARISON: None TECHNIQUE: Single view of the chest FINDINGS: Heart and vascularity are unremarkable. Lungs are free of focal infiltrates. No effusions are noted. IMPRESSION: No acute heart or lung disease identified. Electronically authenticated by: DEEPALI MAJOR Date: 2022-08-22 10:48 Normal [facility] Covid-19 PCR (CVDTBH)on 04-15 SARS-CoV-2 (COVID-19) RNA JO+probe Ql (Unsp spec) Not detected Normal NOT DETECTED [facility] Comment on above: Result Comment: When diagnostic [...] for this test is supported by the [place] of Health and Human Service's declaration that [...] used). Performed By: #### C VDTBH #### [facility] [address] [place] [address] Dr. Ambrocio Rubio PAP ACOG PANEL 2: 30 to 65on 11-20-2021 . . Normal [facility] Comment on above: Result Comment: Perf ormed at: WB Performed By: #### [id number] #### [facility] [address] [place] [address] Dr. Ambrocio Rubio Age Gdln ACOG Testing 30-65 Normal [facility] Comment on above: Performed By: #### [id number] #### [facility] [address] [address] [address] Ambrocio Rubio DIAGNOSIS: Comment Normal [facility] Comment on above: Result Comment: NEGA TIVE FOR INTRAEPITHELIAL LESION OR MALIGNANCY. Performed at: WB Performed By: #### [id number] #### [facility] [address] [address] [address] Ambrocio Rubio HPV Aptima Negative Normal Negative [facility] Comment on above: Result Comment: This nucleic acid amplification test detects fourteen high-risk HPV types (16,18,31,33,35,39,45,51,52,56,58,59,66,68) without differentiation. Performed at: =G Performed By: #### [id number] #### [facility] [address] [place] [address] Dr. Ambrocio Rubio Methodology: Comment Normal [facility] Comment on above: Result Comment: This liquid based ThinPrep(R) pap test was screened with the use of an image guided system. Performed at: WB Performed By: #### [id number] #### [facility] [address] [place] [address] Dr. Ambrocio Rubio Note: Comment Normal [facility] Comment on above: Result Comment: The Pap smear is a screening test designed to aid in the detection of premalignant and malignant conditions of the uterine cervix. It is not a diagnostic procedure and should not be used as the sole means of detecting cervical cancer. Both false-positive and false-negative reports do occur. . Performed at: WB Performed By: #### [id number] #### [facility] [address] [place] [address] Dr. Ambrocio Rubio Performed by: Comment Normal [facility] Comment on above: Result Comment: Donte Alonzo, Rn Licensed Practical (ASCP) Performed at: WB Performed By: #### [id number] #### [facility] [address] [place] [address] Dr. Ambrocio Rubio Specimen adequacy: Comment Normal [facility] Comment on above: Result Comment: Sati sfactory for evaluation. No endocervical component is identified. Performed at: WB Performed By: #### [id number] #### [facility] [address] [address] [address] Ambrocio Rubio Vital Signs Date Time Vital Sign Value Performing Clinician Felipe sibley 04-23-2024 09:21-0500 Body height 167.6 cm Kiko Holder MD Work Phone: [facility] 04-23-2024 09:21-0500 Body mass index (BMI) [Ratio] 44.22 kg/m2 Kiko Holder MD Work Phone: [facility] 04-23-2024 09:21-0500 Body weight 124.29 kg Kiko Holder MD Work Phone: [facility] 04-05-2024 11:41-0500 Body mass index (BMI) [Ratio] 44.22 kg/m2 Lluvia GAVIRIA Work Phone: [facility] 04-05-2024 11:41-0500 Body weight 124.29 kg Lluvia GAVIRIA Work Phone: [facility] 02-27-2024 08:47-0400 Body mass index (BMI) [Ratio] 44.84 kg/m2 Sina Mike DO Work Phone: [facility] 02-27-2024 08:47-0400 Body weight 126.01 kg Sina Mike DO Work Phone: [facility] 02-27-2024 08:47-0400 Diastolic blood pressure 74 mm[Hg] Sina Mike DO Work Phone: [facility] 02-27-2024 08:47-0400 Systolic blood pressure 122 mm[Hg] Sina Mike DO Work Phone: [facility] Encounters Encounter Date Encounter Type Care Provider Facility Start: 05-17-2024 End: 05-17-2024 Telephone encounter Kiko Holder MD Work Phone: [facility] Start: 05-02-2024 End: 05-02-2024 Bamboo flowsheet Kiko Holder MD Work Phone: [facility] Start: 05-02-2024 End: 05-02-2024 Bamboo flowsheet Kiko Holder MD Work Phone: [facility] Start: 05-02-2024 End: 05-02-2024 Office outpatient visit 15 minutes Kiko Holder MD Work Phone: [facility] Comment on above: Rotator cuff syndrom e of left shoulder (Primary Dx) Start: 05-02-2024 End: 05-02-2024 ambulatory KIKO HOLDER Not Available Start: 05-01-2024 End: 05-01-2024 Clinisync Result Encounter Kiko Holder MD Work Phone: [facility] Unsolicited Start: 05-01-2024 End: 05-01-2024 Clinisync Result Encounter Kiko Holder MD Work [...] without long-term current use of insulin (CMS/HCC) (Primary Dx); Monilial vaginitis; Morbid obesity (CMS/HCC); Body mass index (BMI) 40.0-44.9, adult (CMS/HCC) Start: 04-23-2024 End: 04-23-2024 ambulatory KIKO HOLDER Not Available Start: 04-05-2024 End: 04-05-2024 Patient encounter procedure Lluvia GAVIRIA Work Phone: [facility] Comment on above: Skin tag Start: 04-05-2024 End: 04-05-2024 ambulatory Sina Mike Facility:[facility] Start: 03-05-2024 ambulatory Facility:[facility] Start: 02-29-2024 [...] encounter procedure Sina Mike DO Work Phone: [facility] Work Phone: Start: 02-27-2024 End: 02-27-2024 Periodic preventive med est patient 40-64yrs Sina Mike DO Work Phone: [facility] Comment on above: Well woman exam with routine gynecological exam; Breast cancer screening by mammogram; Asymptomatic menopausal state; Non-seasonal allergic rhinitis, unspecified trigger; Moderate persistent asthma without complication ([facility]) Start: 11-21-2023 End: 11-21-2023 ambulatory KIKO HOLDER Not Available Start: 08-22-2022 End: 08-22-[address] ELSA STOLL . Facility:[facility] Start: 05-03-2022 End: 05-03-2022 ambulatory DARIN BARRIOS Facility:[facility] Start: 11-17-2021 End: 11-17-[address] SUBHA GUERRERO . Facility:[facility] Procedures Date Procedure Procedure Detail Performing Clinician Start: 05-01-2024 MLR HEMOGLOBIN A1C Rajat Holder MD Work Phone: Start: 04-23-2024 ALL LIPID PROFILE (FASTING) Kiko Holder MD Work Phone: Start: 04-23-2024 [facility] CMP (CMP) (FOR [facility]) Kiko Holder MD Work Phone: Start: 02-27-2024 IGP,APTIMA HPV,AGE GDLN Sina Mckeon DO Work Phone: Start: 02-27-2024 Cytp cerv/vag auto t hin layer prep mnl screen Sina Mckeon DO Work Phone: Plan of Treatment Date Care Activity Detail Author Start: 02-28-2025 End: 02-28-2025 Patient encounter procedure 02/28/2025 10:00 AM EDT Office Visit [facility] [address] [id number] Mike Sina, DO [address] [place] [address] [facility] Start: 10-01-2024 End: 10-01-2024 Patient encounter procedure 10/01/2024 9:00 AM EDT Office Visit [facility] [address] [facility] [address] [place] [address] Kiko Holder MD [address] [facility] [address] [place] [address] (Fax) [facility] Start: 09-21-2024 End: 04-23-2025 Hemoglobin A1c/Hemoglobin.total in Blood Hemoglobin A1c Lab Routine Type 2 diabetes mellitus with hyperglycemia, without long-term current use of insulin ([facility]) Expected: 09/21/2024, Expires: 04/23/2025 [facility] Comment on above: Expected: 09/21/2024 , Expires: 04/23/2025 Start: 05-02-2024 End: 05-02-2024 Patient encounter procedure [facility] Comment on above: Arrived Start: 04-23-2024 End: 04-23-2025 Hemoglobin A1c/Hemoglobin.total in Blood Hemoglobin A1c Lab Routine Type 2 diabetes mellitus with hyperglycemia, without long-term current use of insulin ([facility]/HCC) Expected: 04/23/2024 (Approximate), Expires: 04/23/2025 [facility] Work Phone: Comment on above: Expected: 04/23/2024 (Approximate), Expires: 04/23/2025 Start: 04-23-2024 End: 04-23-2024 Patient encounter procedure 04/23/2024 9:30 AM EST Office Visit [facility] [address] [place] [address] [place] [address] Kiko Holder MD [address] [place] [address] [facility] Start: 04-05-2024 End: 04-05-2024 Patient encounter procedure 04/05/2024 11:00 AM EST Procedure Visit [facility] [address] [place] [phone] Lluvia Ortiz PA [address] [facility] [place] [address] [facility] Start: 02-27-2024 End: 04-28-2025 MG Breast - bilateral Screening Bilateral screening mammogram Imaging Routine Breast cancer screening by mammogram Expected: 02/27/2024 (Approximate), Expires: 04/28/2025 [facility] Work Phone: Comment on above: Expected: 02/27/2024 (Approximate), Expires: 04/28/2025 Start: 01-15-2024 Influenza vaccination Influenza Vacc ine (#1) [facility] Start: 2014 Screening for malignant neoplasm of breast Mammogram [facility] Start: 1993 Urine screening for protein Diabetes: Urine Protein Screening [facility] Start: 1984 Glaucoma screening Diabetes: R etinopathy Screening [facility] Start: 1974 Hemoglobin A1c measurement Diabetes: Hemoglobin A1C [facility] Start: 1974 Screening for malignant neoplasm of colon [facility] THIN PREP TIS PAP AN D HR HPV DNA THIN PREP TIS PAP AND HR HPV DNA Pathology and Cytology Routine Well woman exam with routine gynecological exam Ordered: 02/27/2024 [facility] Comment on above: Ordered: 02/27/2024 Immunizations Immunization Date Immunization Notes Care Provider Sonia roman 02-16-2024 influenza, injectabl e, madin aime canine kidney, preservative free Kiko Holder MD Work Phone: [facility] 05-18-2000 hepatitis B vaccine, adult dosage Sina Mike DO Work Phone: [facility] 11-18-1999 hepatitis B vaccine, adult dosage Sina Mike DO Work Phone: [facility] 10-14-1999 hepatitis B vaccine, adult dosage Sina Mike DO Work Phone: [facility] 10-14-1999 measles, mumps and rubella virus vaccine Sina Mike DO Work Phone: [facility] 10-14-1999 TD(adult) unspecifie d formulation Sina Mike DO Work Phone: [facility] 08-05-1977 measles, mumps and rubella virus vaccine Sina Mike DO Work Phone: [facility] Payers Date Payer Category Payer Self-pay 2024 Unknown [id number] 2022 [facility] [id number] 2022 Unknown [id number] 2019 Unknown [id number] 1974 Unknown [id number] 2.16.84 [id number] 1974 Unknown [id number] 2.16.84 [id number] 1974 Unknown [id number] 2.16.84 [id number] 1974 Unknown [id number] 2.16.84 [id number] 1974 Unknown [id number] 2.16.84 [id number] 1974 Unknown [id number] 2.16.84 [id number] 1974 Unknown [id number] 2.16.84 [id number] 1974 Unknown [id number] 2.16.84 [id number] Social History Date Type Detail Facility Start: 11-21-2023 Tobacco smoking stat [facility] Never smoked tobacco [facility] Start: 11-21-2023 Tobacco use and exposure Smoke less tobacco non-user [facility] Start: 11-21-2023 End: 04-23-2024 Alcoholic beverage intake Current drinker of alcohol (finding) [facility] Start: 11-04-2022 End: 11-21-2023 Alcoholic beverage intake [facility] Start: 11-04-2022 End: 11-21-2023 Tobacco use panel [facility] Start: 11-17-2022 Alcohol Comment Caffeine intak e: 1-2 cups per day [facility] Start: 1974 Sex assigned at Not on file [facility] Clinical Notes 02-27-2024 to 05-17-2024 Telephone Encounter - Kiko Holder MD - 05/17/2024 10:37 AM ESTTelephone Encounter - Kiko Holder MD - 05/17/2024 10:37 AM ESTTelephone Encounter - Chandni Irvin - 05/17/2024 10:01 AM EST Note Date & Type Note Facility 05-17-2024 Telephone encounter Note Form atting of this note might be different from the original. RX sent [facility] 05-17-2024 Miscellaneous Notes Formattin g of this note might be different from the original. RX sent Serina called, she has a sinus infection she just can't kick. She states she has has bad sinus pain and pressure, headache, congestion and bright green thick mucus when blowing her nose. Serina is asking if Dr. Holder could send in something for her so she doesn't have to wait tuesday. She goes to [facility] in [place]. documented in this encounter [facility] 05-17-2024 Telephone encounter Note Form atting of this note might be different from the original. Serina called, she has a sinus infection she just can't kick. She states she has has bad sinus pain and pressure, headache, congestion and bright green thick mucus when blowing her nose. Serina is asking if Dr. Holder could send in something for her so she doesn't have to wait tuesday. She goes to [facility] in [place]. [facility] 05-02-2024 History of Presen t illness Narrative Images from the original note were not included. Patient ID: Serina Horn is a 48 y.o. female who presents for: Shoulder Pain: Pt presents with left shoulder pain. The symptoms began several years ago. Aggravating factors: no known event. Pain is located diffusely throughout the shoulder. Discomfort is described as aching and throbbing. Symptoms are exacerbated by overhead movements. Evaluation to date: none. Therapy to date includes: avoidance of offending activity and OTC analgesics which are not very effective. Review of Systems Constitutional: Negative for chills and fever. Respiratory: Negative for cough, shortness of breath and wheezing. Cardiovascular: Negative for chest pain and palpitations. Gastrointestinal: Negative for abdominal pain. Genitourinary: Negative for frequency and urgency. Objective The patient is pleasant and in no acute distress The patient has good eye contact and clear speech The left shoulder has no overt swelling, bruising, calor. She does demonstrate painful arc. The AC joint is minimally tender and not reproducing her pain. Palpation of the biceps tendon does not reproduce the pain. She is able to do all for rotator cuff tests. Internal rotation does not bother her too much. However empty can, adduction, external rotation all reproduce /aggravate the pain in her shoulder. Visit Vitals OB Status Hysterectomy Smoking Status Never Allergies Allergen Reactions Sulfa Antibiotics Other Reaction(s): [...] Inhale 1 puff Daily 180 each 1 metFORMIN (Glucophage) 1000 MG tablet Take 1 tablet (1,000 mg) by mouth in the morning and 1 tablet (1,000 mg) in the evening. Take with meals. 60 tablet 0 metFORMIN (Glucophage) 500 MG tablet Take 1 tablet (500 mg) by mouth in the morning and 1 tablet (500 mg) in the evening. Take before meals. 60 tablet 0 metFORMIN (Glucophage) 850 MG tablet Take 1 tablet (850 mg) by mouth in the morning and 1 tablet (850 mg) in the evening. Take before meals. 60 tablet 0 montelukast (Singulair) 10 MG tablet Take 1 tablet (10 mg) by mouth at bedtime 90 tablet 1 Multiple Vitamin (multivitamin) capsule Take 1 capsule by mouth Daily No current facility-administered medications on file prior to visit. 1. Rotator cuff syndrome of left shoulder (Primary) Chronic problem with exacerbation. She has had this for some time but lately it has been rather painful in interfering with her day. We discussed multiple possibilities including diagnostic imaging, physical therapy, trial of home medication and ice, and subacromial injection. She prefers to try the ice in oral medication 1st. In prescribing a new medication consideration of [...] with the adjustment in their medication. - nabumetone (Relafen) 750 MG tablet; Take 1 tablet (750 mg) by mouth in the morning and 1 tablet (750 mg) before bedtime. Dispense: 60 tablet; Refill: 0 documented in this encounter [facility] 04-23-2024 History of Presen t illness Narrative Images from the original note were not included. Patient ID: Serina Horn is a 48 y.o. female who presents for: Pt states she saw is the new eye dr at [facility]'s office in December, she had new lenses. [...] hyperglycemia, without long-term current use of insulin ([facility]) (Primary) Fasting blood [...] for now after urinating. She has tried hckw-bup-smrtrti yeast creams without improvement. In prescribing a [...] 14 tablet; Refill: 0 3. Morbid obesity ([facility]) We did review how this affects the insulin resistance which has led to the diabetes. 4. Body mass index (BMI) 40.0-44.9, adult ([facility]) Defines the morbid obesity documented in this encounter [facility] 04-05-2024 History of Presen t illness Narrative [...] rhinitis 12/21/2022 Moderate persistent asthma without complication (CMS/HCC) 11/21/2023 Resolved Ambulatory Problems Diagnosis Date Noted [...] nursing note reviewed. Exam conducted with a power press operator present. Vitals: Estimated body mass index is [...] after allowing sufficient time to take affect. quill picking machine operator and scissors used to remove affected area. Placed in formalin and sent to pathology. Post-procedure instructions given. Several skin tags removed on right and left side, which will be sent to Pathology for testing. Follow Up: as needed and for annual appointment. Documented by Sepideh Guerra LPN on behalf of: EVERETTE Skinner documented in this encounter [facility] 02-27-2024 History of Presen t illness Narrative [...] rhinitis 12/21/2022 Moderate persistent asthma without complication (CMS/HCC) 11/21/2023 Resolved Ambulatory Problems Diagnosis Date Noted [...] nursing note reviewed. Exam conducted with a power press operator present. Vitals: Estimated body mass index is [...] in this encounter [facility] Evaluation note Diagnosis Well woman exam with routine gynecological exam Routine gynecological examination Breast cancer screening by mammogram Asymptomatic menopausal state Non-seasonal allergic rhinitis, unspecified trigger Moderate persistent asthma without complication ([facility]) [facility] Diagnosis Skin tag Unspecified hypertrophic and atrophic condition of skin documented [facility]* Diagnosis Type 2 diabetes mellitus with hyperglycemia, without long-term current use of insulin (CMS/[facility])- Primary Monilial vaginitis Morbid obesity (CMS/HCC) Morbid obesity Body mass index (BMI) 40.0-44.9, adult (CMS/[facility]) [facility]* Diagnosis Rotator cuff syndrome of left shoulder- Primary [facility]* Diagnosis Acute non-recurrent sinusitis, unspecified location- Primary documented in this encounter [facility] Summary Purpose Family History No Family History Records FoundNo Family History Records FoundNo Family History Records FoundNo Family History Records Found Advance Directives No Advanced Directives Records FoundNo Advanced Directives Records FoundNo Advanced Directives Records FoundNo Advanced Directives Records Found Additional Source Comments INFORMATION SOURCE (unrecogn ized section and content) DATE CREATED AUTHOR 08/24/2022 [facility] DATE CREATED AUTHOR AUTHOR'S ORGANIZ ATION 03/07/2024 [facility] DATE CREATED AUTHOR AUTHOR'S ORGANIZ ATION 04/13/2024 [facility] DATE CREATED AUTHOR AUTHOR'S ORGANIZ ATION 05/05/2024 [facility] Care Teams (unrecognized sec tion and content) Patient Placement Coordinator Relationship Specialty Start Date End Date Kiko Holder MD [address] [place] [address] PCP - General Family Medicine 11/03/22 Kiko Holder MD [address] [place] [address] (Fax) PCP - [facility] [employer] 12/14/22 Patient Placement Coordinator Relationship Specialty Start Date End Date Kiko Holder MD [address] [place] [address] PCP - General Family Medicine 11/03/22 Kiko Holder MD [address] [place] [address] (Fax) PCP - [facility] [employer] 12/14/22 Patient Placement Coordinator Relationship Specialty Start Date End Date Kiko Holder MD [address] [place] [address] PCP - General Family Medicine 11/03/22 Kiko Holder MD [address] [place] [address] (Fax) PCP - [facility] [employer] 12/14/22 Patient Placement Coordinator Relationship Specialty Start Date End Date Kiko Holder MD (Fax) PCP - General Family Medicine 11/03/22 Kiko Holder MD [address] [address] (Fax) PCP - [facility] [employer] 12/14/22 Patient Placement Coordinator Relationship Specialty Start Date End Date Kiko Holder MD (Fax) PCP - General Family Medicine 11/03/22 Kiko Holder MD [address] [place] [address] (Fax) PCP - [facility] 12/14/22 Patient Placement Coordinator Relationship Specialty Start Date End Date Kiko Holder MD (Fax) PCP - General Family Medicine 11/03/22 Kiko Holder MD [address] [place] [address] (Fax) PCP [facility] 12/14/22 Patient Placement Coordinator Relationship Specialty Start Date End Date Kiko Holder MD (Fax) PCP - General Family Medicine 11/03/22 Kiko Holder MD [address] [place] [address] (Fax) PCP [facility] 12/14/22 Patient Placement Coordinator Relationship Specialty Start Date End Date Kiko Holder MD (Fax) PCP - General Family Medicine 11/03/22 Kiko Holder MD [address] [place] [address] (Fax) PCP - [facility] 12/14/22 Reason for Visit (unrecogniz ed section [...] BE BASED ON THE PRIMARY CLINICAL RECORDS. [facility] [employer] [facility]. provides no warranty or guarantee of the accuracy or completeness of information in this document.
[2024-07-31 09:41] LABS: Creatinine Urine Random 114.53 mg/dL (20.00-300.00); Microalbum Creatinine Ratio Ur 11.3 mg/g (0.0-29.9); Microalbumin Urine Random <1.3 mg/dL (<=30.0)
[2024-07-31 10:46] LABS: Estimated Average Glucose 137 mg/dL; Glycohemoglobin A1C 6.4 % (4.5-6.2)
== END 2024-07-31 08:25 | disposition home or self-care (01) ==
LOC: LAB 08:26
PROVIDERS: PCP Family Medicine; Visit Provider Family Medicine
DX: E11.65 Type 2 diabetes mellitus with hyperglycemia (principal)
CPT/HCPCS: 36415; 82043; 82570; 83036

== ENCOUNTER 2024-09-28 13:17 | Outpatient (OUT) | payer BC, SELFPAY ==
[2024-09-28 14:41] LABS: Estimated Average Glucose 128 mg/dL; Glycohemoglobin A1C 6.1 % (4.5-6.2)
== END 2024-09-28 13:18 | disposition home or self-care (01) ==
PROVIDERS: PCP Family Medicine; Visit Provider Family Medicine
DX: E11.65 Type 2 diabetes mellitus with hyperglycemia (principal)
CPT/HCPCS: 36415; 83036

== ENCOUNTER 2025-01-26 07:09 | Outpatient (OUT) | payer BC, SELFPAY ==
--- OUTSIDE RECORDS SUMMARY | 2025-01-26 07:13 | XMS_ITS | CCD ---
Author Organization [facility] Care Team Providers Care Cook Ench[place]ada Name Role Phone JERMAN ., DR ELSA Yee Primary Care Unavailable DIAB ., CHRISTOPHE Admitting Unavailable DIAB ., CHRISTOPHE Attending Unavailable DEEPALI MAJOR Consulting Unavailable DIAB ., CHRISTOPHE Consulting Unavailable SOPHIE, DARIN Admitting Unavailable SOPHIE, DARIN Attending Unavailable JERMAN ., DR ELSA Yee Primary Care Unavailable DARIN BARRIOS Consulting Unavailable YOLANDA ., DR MASCORRO Admitting Unavailyissel GUERRERO ., DR MASCORRO Attending Unavailyissel STOLL ., DR ELSA Yee Primary Care Unavailable KARASIK ., DR MASCORRO Consulting UnavailKiko Page MD Primary Care Provider Kiko Holder MD Unavailable Kiko Holder MD Primary Care Provider Kiko Holder MD Unavailable [phone] Sina Mckeon Attending Unavailable Sina Mckeon Admitting Unavailable Kiko Holder MD Unavailable KIKO HOLDER Attending Unavailable KIKO HOLDER Attending Unavailable KIKO HOLDER Attending Unavailable SINA MCKEON Attending Unavailable LLUVIA ORTIZ Attending Unavailable KIKO HOLDER Attending Unavailable KIKO HOLDER Attending Unavailable Allergies Allergy Classification Reported Allergen(s) Allergy Type Date of Onset Reaction(s) Facility (1 source) Ibuprofen Drug Allergy 6 [facility]ository (1 source) Sulfamethoxazole / Trimethoprim Drug Allergy 3 [facility] (19 sources) Sulfonamides (Antibiotic) Drug Allergy 3 [facility] (1 source) Sulfamethoxazole / Trimethoprim; Translations: [Bactrim DS] Drug Allergy [facility] Repository Medications Current Medications Medication Drug Class(es) Dates Sig (Normalized) Sig (Original) [id number] 200 actuat albuterol 0.09 mg/actuat metered dose inhaler (20 sources) beta2-Adrenergic Agonist Start: 02-27-2024 End: 02-27-2024 [...] Discontinued (Other) cefuroxime 500 mg oral tablet (2 sources) Cephalosporin Antibacterial Start: 10-03-2024 End: 10-10-2024 take 1 tablet by mouth in the morning cefuroxime (Ceftin) 500 MG tablet Indications: Acute non-recurrent maxillary sinusitis Take 1 tablet (500 mg) by mouth in the morning and 1 tablet (500 mg) before bedtime. Do all this for 7 days. 14 tablet 10/03/2024 10/10/2024 Active Start: 05-17-2024 End: 05-24-2024 take 1 tablet by mouth in the morning cefuroxime (Ceftin) 500 MG tablet Indications: Acute non-recurrent sinusitis, unspecified location Take 1 tablet (500 mg) by mouth in the morning and 1 tablet (500 mg) before bedtime. Do all this for 7 days. 14 tablet 05/17/2024 05/24/2024 Active cetirizine hydrochloride 10 mg oral tablet (19 sources) Histamine-1 Receptor Antagonist Start: 11-24-2022 take 1 tablet by mouth once daily as needed cetirizine (ZyrTEC) 10 MG tablet Indications: Chronic pansinusitis TAKE 1 TABLET BY MOUTH EVERY DAY NEEDED 90 tablet 2 11/24/2022 Active estradiol 1 mg oral tablet (20 sources) Estrogen Start: 09-05-2023 End: 02-27-2024 take 1 tablet by mouth in the morning estradiol (Estrace) 1 MG tablet Indications: Asymptomatic menopausal state Take 1 tablet (1 mg) by mouth in the morning. 90 tablet 3 02/27/2024 Active famotidine 10 mg oral tablet (19 sources) Histamine-2 Receptor Antagonist take 1 tablet by mouth once daily famotidine (Pepcid) 10 MG tablet Take 10 mg by mouth Daily Active fexofenadine hydrochloride 180 mg oral tablet (19 sources) Histamine-1 Receptor Antagonist take 1 tablet by mouth twice daily as needed fexofenadine (Daniella Allergy) 180 MG tablet Take 180 mg by mouth 2 (two) times a day as needed Active fluticasone propionate 0.05 mg/actuat metered dose nasal spray (19 sources) Corticosteroid take 1 spray(s) nasal route in the morning fluticasone (Flonase) 50 MCG/ACT nasal spray Administer 1 spray into each nostril in the morning. Active metFORMIN hydrochloride 1000 mg oral tablet (20 sources) Biguanide Start: 08-02-2024 End: 01-29-2025 take 1 tablet by mouth in the morning metFORMIN (Glucophage) 1000 MG tablet Indications: Type 2 diabetes mellitus without complication, without long-term current use of insulin (HCC) Take 1 tablet (1,000 mg) by mouth in the morning and 1 tablet (1,000 mg) in the evening. Take with meals. 180 tablet 1 08/02/2024 01/29/2025 Active Start: 04-23-2024 End: 05-23-2024 take 1 [...] 05/23/2024 Active montelukast 10 mg oral tablet (20 sources) Leukotriene Receptor Antagonist Start: 11-21-2023 End: 08-25-2024 take 1 tablet by mouth at bedtime montelukast (Singulair) 10 MG tablet Indications: Moderate persistent asthma without complication (HCC) Take 1 tablet (10 mg) by mouth at bedtime 90 tablet 1 02/27/2024 Active Multiple Vitamin (multivitamin) capsule (19 sources) take 1 capsule by mouth once [...] for 14 days 14 tablet 04/23/2024 05/07/2024 60 actuat fluticasone propionate 0.25 mg/actuat / salmeterol 0.05 mg/actuat dry powder inhaler (20 sources) Corticosteroid, beta2-Adrenergic Agonist Start: 11-21-2023 End: 05-12-2025 take 1 puff(s) by inhalation once daily Fluticasone-Salmete rol (Advair Diskus) 250-50 MCG/ACT aerosol powder Indications: Moderate persistent asthma without complication (HCC) Inhale 1 puff Daily 180 each 1 11/21/2023 11/13/2024 Discontinued (Reorder) Problems Active Problems Problem Classification Problem Date Documented Da te Episodic/Chronic Asthma (20 sources) Unspecified asthma with (acute) exacerbation; Translations: [Uncomplicated moderate persistent asthma] Onset: 08-22-2022 Resolved: 11-21-2023 Chronic Diabetes mellitus without complication (6 sources) Type 2 diabetes mellitus; Translations: [Type 2 diabetes mellitus without complications] Onset: 08-02-2024 08-02-2024 Chronic Mycoses (2 sources) Candidiasis of vagina; Translations: [Monilial vaginitis] 04-26-2024 Episodic Other and unspecified benign neoplasm (2 sources) Lipoma of right upper limb; Translations: [Benign lipomatous neoplasm of skin and subcutaneous tissue of right arm] 11-15-2024 Episodic Other connective tissue disease (2 sources) Left rotator cuff syndrome; Translations: [Unspecified rotator cuff tear or rupture of left shoulder, not specified as traumatic] 05-02-2024 Episodic Other nutritional; endocrine; and metabolic disorders (15 sources) Morbid obesity; Translations: [Morbid (severe) obesity [...] skin] 04-05-2024 Episodic Other upper respiratory disease (20 sources) Allergic rhinitis; Translations: [Allergic rhinitis, unspecified] Onset: 12-21-2022 12-21-2022 Chronic Other upper respiratory infections (19 sources) Chronic pansinusitis; Translations: [Chronic pansinusitis] Onset: 11-03-2022 11-03-2022 Chronic Other upper respiratory infections (2 sources) Acute sinusitis; Translations: [Acute sinusitis, unspecified] 05-17-2024 Episodic Residual codes; unclassified (2 sources) Menopause present; Translations: [Asymptomatic menopausal state] 02-27-2024 Episodic Unclassified (3 sources) CONTACT W/AND (SUSP) EXPOS COVID-19; Translations: [CONTACT W/AND (SUSP) EXPOS COVID-19] Onset: 05-05-2022 Past or Other Problems Problem Classification Problem Date Documented Date Episodic/Chronic Diabetes mellitus with complications (15 sources) Hyperglycemia due to type 2 diabetes mellitus; Translations: [Type 2 diabetes mellitus with hyperglycemia] Onset: 04-26-2024 Resolved: 08-02-2024 04-23-2024 Chronic Immunizations and screening for infectious disease (1 source) Encounter for screening for human papillomavirus (HPV); Translations: [ENC SCREENING HUMAN PAPILLOMAVIRUS] Onset: 11-20-2021 Episodic Other nutritional; endocrine; and metabolic disorders (19 sources) Obese class III; Translations: [Class 3 obesity] Onset: 12-21-2022 Resolved: 11-21-2023 11-21-2023 Chronic Unclassified (1 source) CONTACT W/AND (SUSP) EXPOS COVID-19; Translations: [CONTACT W/AND (SUSP) EXPOS COVID-19] Onset: 05-03-2022 Varicose veins of lower extremity (19 sources) Venous varices; Translations: [Asymptomatic varicose veins of unspecified lower extremity] Onset: 11-15-2012 11-03-2022 Episodic Results Test Name Value Interpretation Reference Range Facility [facility] HEMOGLOBIN A1Con 025 Glucose [Mass/Vol] 128 mg/dL [facility] HbA1c (Bld) [Mass fraction] 6.1 % 4.5 - 6.2 % [facility] Comment on above: ADA RECOMMENDED LIMI T 4.0 - 6.0 ADA THERAPEUTIC TARGET < 7.0 ACTION SUGGESTED > 7.0 [facility] HEMOGLOBIN A1Con 024 Glucose [Mass/Vol] 269 mg/dL [facility] HbA1c (Bld) [Mass fraction] 11 % High 4.5 - 6.2 % [facility] Comment on above: REPEATED FOR VERIFIC ATION ADA RECOMMENDED LIMIT 4.0 - 6.0 ADA THERAPEUTIC TARGET < 7.0 ACTION SUGGESTED > 7.0 Interpretation and review of laboratory results Abnormal [facility] ALL LIPID PROFILE (FASTING)o n 04-23-2024 CHOL [facility]IO [facility].5 [facility] Comment on above: 3.3 - 4.4 LOW RISK 4.4 - 7.1 AVERAGE RISK 7.1 - 11.0 MODERATE RISK >11.0 HIGH RISK Cholesterol [Mass/Vol] 225 mg/dL High NINF - 200 mg/dL [facility] Cholesterol in HDL [Mass/Vol] 41 mg/dL 40 - 60 mg/dL [facility] Comment on above: > or =60 mg/dl - LOW CARDIOVASCULAR RISK <40 mg/dl - HIGH CARDIOVASCULAR RISK Magnesium [Mass/Vol] 138 mg/dL [facility] Comment on above: <100 mg/dl OPTIMAL 100-129 mg/dl NEAR OR ABOVE OPTIMAL 130-159 mg/dl BORDERLINE HIGH 160-189 mg/dl HIGH >190 mg/dl VERY HIGH Magnesium [Mass/Vol] 46.6 mg/dL [facility] Triglyceride [Mass/Vol] 233 mg/dL High NINF - 150 mg/dL [facility]CF CMP (CMP) (FOR REMOTE FH C USE)on 04-23-2024 Albumin [Mass/Vol] 3.3 g/dL Low 3.4 - 5.0 g/dL [facility] ALBUMIN GLOBULIN RATIO 0.7 [facility] ALP [Catalytic activity/Vol] 117 U/L High 46 - 116 U/L [facility] ALT [Catalytic activity/Vol] 137 U/L High 14 - 59 U/L [facility] Anion gap [Moles/Vol] 14.7 mmol/L [facility] AST [Catalytic activity/Vol] 152 U/L High 15 - 37 U/L [facility] Bilirubin [Mass/Vol] 0.6 mg/dL 0.2 - 1.0 mg/dL [facility] Calcium [Mass/Vol] 9.1 mg/dL 8.5 - 10. 1 mg/dL [facility] Chloride [Moles/Vol] 98 mmol/L 98 - 107 mmol/L [facility] CO2 [Moles/Vol] 25.6 mmol/L 21.0 - 32.0 mmol/L [facility] Creatinine [Mass/Vol] 0.96 mg/dL 0.55 - 1.02 mg/dL [facility] GFR/1.73 sq M.predicted CKD-EPI (S/P/Bld) [Vol rate/Area] >60 >=60 mL/min/1.73m 2 [facility] Globulin (S) [Mass/Vol] 4.5 g/dL [facility] Glucose [Mass/Vol] 421 mg/dL High 74 - 106 mg/dL NO [facility] Potassium [Moles/Vol] 4.3 mmol/L 3.5 - 5.1 mmol/L [facility] Protein [Mass/Vol] 7.8 g/dL 6.4 - 8.2 g/dL NO [facility] Sodium [Moles/Vol] 134 mmol/L Low 136 - 145 mmol/L [facility] TBH EGFR-NON AF ANGUILLAN >60 >=60 mL/min/1.73m 2 [facility] Urea nitrogen [Mass/Vol] 9 mg/dL 7.0 - 18.0 mg/dL [facility] Urea nitrogen/Creatinine [Mass ratio] 9.4 mg/mg [facility] No Panel Informationon 04-23 Interpretation and review of laboratory results Abnormal [facility] Pathology Request for Lab Co rpon 04-05-2024 Pathology Request for Lab Stephy Normal [facility] Comment on above: Order Comment: PATHO LOGY SKIN SPECIMEN Result Comment: See report. Scanned copy available in EMR. PERFORMED BY: [place] [address] PATHOLOGIST HOSPITAL ADMINISTRATIVE ASSISTANT ANTONINO MARIA M.D. Performed By: #### P ATH TO [facility] #### [place] [address] [place] IGP,APTIMA HPV,AGE GDLNon AGE GDLN ACOG TESTING Note . [facility] Comment on above: TESTS RESULT FLAG UN ITS REF RANGE LAB Clinician Provided Cytology Information Source.............Vagina No. of containers..01 ThinPrep Vial Age Ta DOTY Georgina... FLAG LEGEND: L-Low Normal,H-High Normal,LL-Alert Low,HH-Alert High <-Panic Low,>-Panic High,A-Abnormal,AA-Critical Abnormal Performed at: 01 =[address] [id number] Leilani Hunter MD, HPV APTIMA Negative Negative [facility] Comment on above: This nucleic acid am plification test detects fourteen high- risk HPV types (16,18,31,33,35,39,45,51,52,56,58,59,66,68) without differentiation. Performed at: =[address] [id number] Forms Analysis Manager: Leilani Hunter MD, Phone: [phone] Performed at: [address] [id number] Forms Analysis Manager: Leilani Hunter MD, Phone: [phone] IGP, APTIMA HPV, RFX 16/18,45 Note . [facility] Comment on above: TESTS RESULT FLAG UN ITS REF RANGE LAB DIAGNOSIS: 02 NEGATIVE FOR INTRAEPITHELIAL LESION OR MALIGNANCY. Specimen adequacy: 02 Satisfactory for evaluation. No endocervical component is identified. Performed by: 02 Yovana Espino Safety Risk Lead ([facility]) . 02 Note: Note 02 The Pap [...] Low,>-Panic High,A-Abnormal,AA-Critical Abnormal Performed at: [address] [phone] Leilani Hunter MD, SPATULA-ALONE VAGINA [facility] Cytology Cervical or vaginal smear or scraping studyon 02-27-2024 [facility] CARDIAC ANDRESSA ADMITon 023 CK [Catalytic activity/Vol] 70 U/L Normal 26-192 [facility] Comment on above: Performed By: #### C YOJANA BARTHOLOMEW #### [facility] [address] [address] [address] Ambrocio Rubio CK.MB [Mass/Vol] 0.93 ng/mL Normal <=3.60 [facility] Comment on above: Performed By: #### C YOJANA BARTHOLOMEW #### [facility] [address] [place] [address] Dr. Ambrocio Rubio HSTROP 4.6 pg/mL Normal 4.0-51.3 [facility] Comment on above: Result Comment: CUT- OFF POINTS HAVE BEEN ESTABLISHED BASED ON THE FOURTH UNIVERSAL DEFINITIONS OF MYOCARDIAL INFARCTION. THE UPPER REFERENCE LIMIT (URL) OF TROPONIN, DEFINED THE 99TH PERCENTILE OF cTnI DISTRIBUTION IN A REFERENCE POPULATION, HAS BEEN CONFIRMED THE DECISION THRESHOLD FOR OK DIAGNOSIS. Performed By: #### C YOJANA BARTHOLOMEW #### [facility] [address] [place] [address] Dr. Ambrocio Rubio MICHAEL 41 ng/mL Normal 9-82 [facility] Comment on above: Performed By: #### C YOJANA BARTHOLOMEW #### [facility] [address] [place] [address] Dr. Ambrocio Rubio CBC AUTO DIFFon 08-22-2022 BASO # 0.1 103/ul Normal 0.0-0.1 [place] Comment on above: Performed By: #### C BC #### [facility] [address] [place] [address] Dr. Ambrocio Rubio Basophils/100 WBC (Bld) 0.9 % Normal 0.2-2.0 [facility] Comment on above: Performed By: #### C BC #### [facility] [address] [place] [address] Dr. Ambrocio Rubio EO # 0.8 103/ul Critically high 0.0-0.7 [facility] Comment on above: Performed By: #### C BC #### [facility] [address] [place] [address] Dr. Ambrocio Rubio Eosinophils/100 WBC (Bld) 8.3 % Critically high 0.9-7.0 [place] Comment on above: Performed By: #### C BC #### [facility] [address] [place] [address] Dr. Ambrocio Rubio Erythrocyte distribution width (RBC) [Ratio] 13.3 % Normal 11.0-15.0 [facility] Comment on above: Performed By: #### C BC #### [facility] [address] [place] [address] Dr. Ambrocio Rubio Hematocrit (Bld) [Volume fraction] 42.9 % Normal 36.0-48.0 [facility] Comment on above: Performed By: #### C BC #### [facility] [address] [place] [address] Dr. Ambrocio Rubio Hemoglobin (Bld) [Mass/Vol] 14.2 g/dL Normal 12.0-16.0 [facility] Comment on above: Performed By: #### C BC #### [facility] [address] [place] [address] Dr. Ambrocio Rubio IG # 0.04 10e3/ul Critically high 0.00-0.03 [facility] Comment on above: Performed By: #### C BC #### [facility] [address] [place] [address] Dr. Ambrocio Rubio IG % 0.4 % Normal 0.0-0.5 [facility] Comment on above: Performed By: #### C BC #### [facility] [address] [place] [address] Dr. Ambrocio Rubio LYMPH # 4.3 103/ul Critically high 1.2-3.8 [facility] Comment on above: Performed By: #### C BC #### [facility] [address] [place] [address] Dr. Ambrocio Rubio Lymphocytes/100 WBC (Bld) 43.2 % Normal 20.5-60.0 [place] Comment on above: Performed By: #### C BC #### [facility] [address] [place] [address] Dr. Ambrocio Rubio MANUAL DIFF REQ NO Normal [facility] Comment on above: Performed By: #### C BC #### [facility] [address] [place] [address] Dr. Ambrocio Rubio MCH (RBC) [Entitic mass] 28.5 pg Normal 26.7-34.0 [place] Comment on above: Performed By: #### C BC #### [facility] [address] [place] [address] Dr. Ambrocio Rubio MCHC (RBC) [Mass/Vol] 33.1 g/dL Normal 29.9-35.2 [facility] Comment on above: Performed By: #### C BC #### [facility] [address] [place] [address] Dr. Ambrocio Rubio MCV (RBC) [Entitic vol] 86.0 fL Normal 81.0-99.0 [place] Comment on above: Performed By: #### C BC #### [facility] [address] [place] [address] Dr. Ambrocio Rubio MONO # 0.6 103/ul Normal 0.3-0.8 [facility] Comment on above: Performed By: #### C BC #### [facility] [address] [place] [address] Dr. Ambrocio Rubio Monocytes/100 WBC (Bld) 6.0 % Normal 1.7-12.0 [facility] Comment on above: Performed By: #### C BC #### [facility] [address] [place] [address] Dr. Ambrocio Rubio NEUT # 4.1 103/ul Normal 1.4-6.5 [place] Comment on above: Performed By: #### C BC #### [facility] [address] [place] [address] Dr. Ambrocio Rubio Neutrophils/100 WBC (Bld) 41.2 % Critically low 43.0-75.0 [facility] Comment on above: Performed By: #### C BC #### [facility] [address] [place] [address] Dr. Ambrocio Rubio Platelet mean volume (Bld) [Entitic vol] 10.1 fL Normal 9.5-13.5 [facility] Comment on above: Performed By: #### C BC #### [facility] [address] [place] [address] Dr. Ambrocio Rubio PLT 244 103/ul Normal 150-450 [facility] Comment on above: Performed By: #### C BC #### [facility] [address] [place] [address] Dr. Ambrocio Rubio RBC 4.99 106/ul Normal 4.20-5.40 [place] Comment on above: Performed By: #### C BC #### [facility] [address] [place] [address] Dr. Ambrocio Rubio WBC 9.9 103/ul Normal 4.0-11.0 [place] Comment on above: Performed By: #### C BC #### [facility] [address] [place] [address] Dr. Ambrocio Rubio PROF 14(COMP METB)on 023 Albumin [Mass/Vol] 3.7 g/dL Normal 3.4-5.0 [facility] Comment on above: Performed By: #### C YOJANA BARTHOLOMEW #### [facility] [address] [place] [address] Dr. Ambrocio Rubio Albumin/Globulin [Mass ratio] 0.8 {ratio} Normal [facility] Comment on above: Performed By: #### C YOJANA BARTHOLOMEW #### [facility] [address] [place] [address] Dr. Ambrocio Rubio ALP [Catalytic activity/Vol] 82 U/L Normal 46-116 [place] Comment on above: Performed By: #### C YOJANA BARTHOLOMEW #### [facility] [address] [place] [address] Dr. Ambrocio Rubio ALT [Catalytic activity/Vol] 34 U/L Normal 14-59 [facility] Comment on above: Performed By: #### C YOJANA BARTHOLOMEW #### [facility] [address] [place] [address] Dr. Ambrocio uRbio Anion gap [Moles/Vol] 13.6 mmol/L Normal [facility] Comment on above: Performed By: #### C DIANA BARTHOLOMEWDM #### [facility] [address] [place] [address] Dr. Ambrocio Rubio AST [Catalytic activity/Vol] 17 U/L Normal 15-37 [facility] Comment on above: Performed By: #### C YOJANA BARTHOLOMEW #### [facility] [address] [place] [address] Dr. Ambrocio Rubio Bilirubin [Mass/Vol] 0.3 mg/dL Normal 0.2-1.0 [facility] Comment on above: Performed By: #### C [place], DIANADM #### [facility] [address] [place] [address] Dr. Ambrocio Rubio Calcium [Mass/Vol] 9.0 mg/dL Normal 8.5-10.1 [facility] Comment on above: Performed By: #### C [place], DIANADM #### [facility] [address] [place] [address] Dr. Ambrocio Rubio Chloride [Moles/Vol] 104 mmol/L Normal 98-107 [facility] Comment on above: Performed By: #### C [place], DIANADM #### [facility] [address] [place] [address] Dr. Ambrocio Rubio CO2 [Moles/Vol] 27.9 mmol/L Normal 21.0-32.0 [facility] Comment on above: Performed By: #### C [place], DIANADM #### [facility] [address] [place] [address] Dr. Ambrocio Rubio Creatinine [Mass/Vol] 0.82 mg/dL Normal 0.55-1.02 [place] Comment on above: Performed By: #### C DIANA BARTHOLOMEWDM #### [facility] [address] [place] [address] Dr. Ambrocio Rubio EGFR-AF ANGUILLAN >60 Normal >=60 [facility] Comment on above: Performed By: #### C [place], DIANADM #### [facility] [address] [place] [address] Dr. Ambrocio Rubio EGFR-NON AF ANGUILLAN >60 Normal >=60 [place] Comment on above: Performed By: #### C DIANA BARTHOLOMEWDM #### [facility] [address] [place] [address] Dr. Ambrocio Rubio Globulin (S) [Mass/Vol] 4.5 g/dL Normal [facility] Comment on above: Performed By: #### C YOJANA BARTHOLOMEW #### [facility] [address] [place] [address] Dr. Ambrocio Rubio Glucose [Mass/Vol] 140 mg/dL Critically high 74-106 T [facility] Comment on above: Performed By: #### C [place], DIANADM #### [facility] [address] [address] [address] Ambrocio Rubio Potassium [Moles/Vol] 3.5 mmol/L Normal 3.5-5.1 [place] Comment on above: Performed By: #### C [place], DIANADM #### [facility] [address] [address] [address] Ambrocio Rubio Protein [Mass/Vol] 8.2 g/dL Normal 6.4-8.2 [facility] Comment on above: Performed By: #### C [place], DIANADM #### [facility] [address] [place] [address] Dr. Ambrocio Rubio Sodium [Moles/Vol] 142 mmol/L Normal 136-145 [facility] Comment on above: Performed By: #### C [place], DIANADM #### [facility] [address] [place] [address] Dr. Ambrocio Rubio Urea nitrogen [Mass/Vol] 14.0 mg/dL Normal 7.0-18.0 [place] Comment on above: Performed By: #### C [place], DIANADM #### [facility] [address] [place] [address] Dr. Ambrocio Rubio Urea nitrogen/Creatinine [Mass ratio] 17.1 mg/mg Normal [facility] Comment on above: Performed By: #### C [place], DIANADM #### [facility] [address] [place] [address] Dr. Ambrocio Rubio XR CHEST 1 Von 08-22-2022 XR CHEST 1 V EXAM: Chest x-ray HISTORY: . SHORTNESS OF BREATH . COMPARISON: None TECHNIQUE: Single view of the chest FINDINGS: Heart and vascularity are unremarkable. Lungs are free of focal infiltrates. No effusions are noted. IMPRESSION: No acute heart or lung disease identified. Electronically authenticated by: DEEPALI MAJOR Date: 2022-08-22 10:48 Normal [facility] Covid-19 PCR (CVDTB)on 04-15 SARS-CoV-2 (COVID-19) RNA JO+probe Ql (Unsp spec) Not detected Normal NOT DETECTED [facility] Comment on above: Result Comment: When [...] for this test is supported by the Estate Planner of Health and Human Service's declaration that [...] used). Performed By: #### C VDTB #### [facility] [address] [place] [address] Dr. Ambrocio Rubio PAP ACOG PANEL 2: 30 to 65on 11-20-2021 . . Normal [place] Comment on above: Result Comment: Perf ormed at: WB Performed By: #### [id number] #### [facility] [address] [place] [address] Dr. Ambrocio Rubio Age Gdln ACOG Testing 30-65 Normal [place] Comment on above: Performed By: #### [id number] #### [facility] [address] [place] [address] Dr. Ambrocio Rubio DIAGNOSIS: Comment Normal [place] Comment on above: Result Comment: NEGA TIVE FOR INTRAEPITHELIAL LESION OR MALIGNANCY. Performed at: WB Performed By: #### [id number] #### [facility] [address] [place] [address] Dr. Ambrocio Rubio HPV Aptima Negative Normal Negative [place] Comment on above: Result Comment: This nucleic acid amplification test detects fourteen high-risk HPV types (16,18,31,33,35,39,45,51,52,56,58,59,66,68) without differentiation. Performed at: =G Performed By: #### [id number] #### [facility] [address] [place] [address] Dr. Ambrocio Rubio Methodology: Comment Normal [place] Comment on above: Result Comment: This liquid based ThinPrep(R) pap test was screened with the use of an image guided system. Performed at: WB Performed By: #### [id number] #### [facility] [address] [place] [address] Dr. Ambrocio Rubio Note: Comment Normal [place] Comment on above: Result Comment: The Pap smear is a screening test designed to aid in the detection of premalignant and malignant conditions of the uterine cervix. It is not a diagnostic procedure and should not be used as the sole means of detecting cervical cancer. Both false-positive and false-negative reports do occur. . Performed at: WB Performed By: #### [id number] #### [facility] [address] [place] [address] Dr. Ambrocio Rubio Performed by: Comment Normal [facility] Comment on above: Result Comment: Donte Alonzo, Safety Risk Lead (ASCP) Performed at: WB Performed By: #### [id number] #### [facility] [address] [place] [address] Dr. Ambrocio Rubio Specimen adequacy: Comment Normal [facility] Comment on above: Result Comment: Sati sfactory for evaluation. No endocervical component is identified. Performed at: WB Performed By: #### [id number] #### [facility] [address] [place] [address] Dr. Ambrocio Rubio Vital Signs Date Time Vital Sign Value Performing Clinician Felipe sibley 04-23-2024 09:21-0500 Body height 167.6 cm Kiko Holder MD Work Phone: [facility] 04-23-2024 09:21-0500 Body mass index (BMI) [Ratio] 44.22 kg/m2 Kiko Holder MD Work Phone: [facility] 04-23-2024 09:21-0500 Body weight 124.29 kg Kiko Holder MD Work Phone: [facility] 04-05-2024 11:41-0500 Body mass index (BMI) [Ratio] 44.22 kg/m2 Lluvia GAVIRIA Work Phone: [facility] 04-05-2024 11:41-0500 Body weight 124.29 kg Lluvia Ortiz PA Work Phone: [facility] 02-27-2024 08:47-0400 Body mass index (BMI) [Ratio] 44.84 kg/m2 Sina Mike DO Work Phone: [facility] 02-27-2024 08:47-0400 Body weight 126.01 kg Sina Mike DO Work Phone: [facility] 02-27-2024 08:47-0400 Diastolic blood pressure 74 mm[Hg] Sina Mike DO Work Phone: [facility] 02-27-2024 08:47-0400 Systolic blood pressure 122 mm[Hg] Sina Mike DO Work Phone: [facility] Encounters Encounter Date Encounter Type Care Provider Facility Start: 11-12-2024 End: 11-13-2024 Telephone encounter Kiko Holder MD Work Phone: [facility] Start: 11-08-2024 End: 11-08-2024 ambulatory KIKO HOLDER Not Available Start: 11-08-2024 End: 11-08-2024 Bamboo flowsheet Kiko Holder MD Work Phone: [facility] Start: 11-08-2024 End: 11-08-2024 Bamboo flowsheet Kiko Holder MD Work Phone: [facility] Start: 11-08-2024 End: 11-08-2024 Office outpatient visit 15 minutes Kiko Holder MD Work Phone: [facility] Comment on above: Lipoma of right uppe r extremity (Primary Dx) Start: 10-03-2024 End: 10-03-2024 Telephone encounter Kiko Holder MD Work Phone: [facility] Start: 09-28-2024 End: 09-28-2024 Clinisync Result Encounter Kiko Holder MD Work Phone: [facility] Unsolicited Start: 09-28-2024 End: 09-28-2024 Clinisync Result Encounter Kiko Holder MD Work Phone: [facility] Unsolicited Start: 08-02-2024 End: 08-02-2024 ambulatory KIKO HOLDER Not Available Start: 05-17-2024 End: 05-17-2024 Telephone encounter Kiko Holder MD Work Phone: [facility] Start: 05-02-2024 End: 05-02-2024 Bamboo flowsheet Kiko Holder MD Work Phone: [facility] Start: 05-02-2024 End: 05-02-2024 Bamboo flowsheet Kiko Hodler MD Work Phone: [facility] [...] hyperglycemia, without long-term current use of insulin ([facility]) (Primary Dx); Monilial vaginitis; Morbid obesity ([facility]); Body mass index (BMI) 40.0-44.9, adult ([facility]) Start: 04-23-2024 End: 04-23-2024 ambulatory KIKO HOLDER Not Available Start: 04-05-2024 End: 04-05-2024 Patient encounter procedure Lluvia GAVIRIA Work Phone: [facility] Comment on above: Skin tag Start: 04-05-2024 End: 04-05-2024 ambulatory Sina Mike Facility:[facility] Start: 03-05-2024 ambulatory Facility:[facility] Start: 02-29-2024 ambulatory Facility:[facility] [...] unspecified trigger; Moderate persistent asthma without complication ([facility]) Start: 11-21-2023 End: 11-21-2023 ambulatory KIKO HOLDER Not Available Start: 08-22-2022 End: 08-22-[address] ELSA STOLL . Facility: Start: 05-03-2022 End: 05-03-2022 ambulatory DARIN BARRIOS Facility:[facility] Start: 11-17-2021 End: 11-17-[address] SUBHA GUERRERO . Facility: Procedures Date Procedure Procedure Detail Performing Clinician Start: 09-28-2024 MLR HEMOGLOBIN A1C Rajat Holder MD Work Phone: Start: 05-01-2024 MLR HEMOGLOBIN A1C Rajat Holder MD Work Phone: Start: 04-23-2024 ALL LIPID PROFILE (FASTING) Kiko Holder MD Work Phone: Start: 04-23-2024 [facility] CMP (CMP) (FOR [facility] USE) Kiko Holder MD Work Phone: Start: 02-27-2024 IGP,APTIMA HPV,AGE GDLN Sina Mckeon DO Work Phone: Start: 02-27-2024 Cytp cerv/vag auto t hin layer prep mnl screen Sina Simpsono DO Work Phone: Plan of Treatment Date Care Activity Detail Author Start: 04-17-2026 Glaucoma screening Diabetes: R etinopathy Screening [facility] Start: 07-31-2025 Urine screening for protein Diabetes: Urine Protein Screening [facility] Start: 03-31-2025 Hemoglobin A1c measurement Diabetes: Hemoglobin A1C [facility] Start: 02-28-2025 End: 02-28-2025 Patient encounter procedure 02/28/2025 10:00 AM EDT Office Visit [facility] [address] [place] [address] Sina Mckeon DO [address] [facility] [address] [place] [address] [facility] Start: 01-22-2025 End: 01-22-2025 Patient encounter procedure 01/22/2025 8:00 AM EDT Office Visit [facility] [address] [facility] [address] [place] [address] Kiko Holder MD [address] [facility] [address] [place] [address] [facility] Start: 01-14-2025 Influenza vaccination Influenza Vacc ine (#1) [facility] Start: 10-01-2024 End: 10-01-2024 Patient encounter procedure 10/01/2024 9:00 AM EDT Office Visit [facility] [address] [place] [address] [place] [address] Kiko Holder MD [address] [facility] [place] [address] [facility] Start: 09-21-2024 End: 04-23-2025 Hemoglobin A1c/Hemoglobin.total in Blood Hemoglobin A1c Lab Routine Type 2 diabetes mellitus with hyperglycemia, without long-term current use of insulin ([facility]) Expected: 09/21/2024, Expires: 04/23/2025 [facility] Comment on above: Expected: 09/21/2024 , Expires: 04/23/2025 Start: 05-02-2024 End: 05-02-2024 Patient encounter procedure [facility] Comment on above: Arrived Start: 04-23-2024 End: 04-23-2025 Hemoglobin A1c/Hemoglobin.total in Blood Hemoglobin A1c Lab Routine Type 2 diabetes mellitus with hyperglycemia, without long-term current use of insulin ([facility]) Expected: 04/23/2024 (Approximate), Expires: 04/23/2025 [facility] Work Phone: Comment on above: Expected: 04/23/2024 (Approximate), Expires: 04/23/2025 Start: 04-23-2024 End: 04-23-2024 Patient encounter procedure 04/23/2024 9:30 AM EST Office Visit [facility] [address] [place] [address] Kiko Holder MD [address] [place] [address] [facility] Start: 04-05-2024 End: 04-05-2024 Patient encounter procedure 04/05/2024 11:00 AM EST Procedure Visit [facility] [address] [facility] [place] [address] Lluvia Ortiz PA [address] [facility] [address] [place], [place] [id number] [facility] Start: 02-27-2024 End: 04-28-2025 MG Breast - bilateral Screening Bilateral screening mammogram Imaging Routine Breast cancer screening by mammogram Expected: 02/27/2024 (Approximate), Expires: 04/28/2025 [facility] Work Phone: Comment on above: Expected: 02/27/2024 (Approximate), Expires: 04/28/2025 Start: 01-15-2024 Influenza vaccination Influenza Vacc ine (#1) [facility] Start: 2014 Screening for malignant neoplasm of breast Mammogram [facility] Start: 1993 Urine screening for protein Diabetes: Urine Protein Screening [facility] Start: 1984 Glaucoma screening Diabetes: R etinopathy Screening [facility] Start: 1974 Hemoglobin A1c measurement Diabetes: Hemoglobin A1C [facility] Start: 1974 Screening for malignant neoplasm of colon [facility] THIN PREP TIS PAP AN D HR HPV DNA THIN PREP TIS PAP AND HR HPV DNA Pathology and Cytology Routine Well woman exam with routine gynecological exam Ordered: 02/27/2024 [facility] Comment on above: Ordered: 02/27/2024 Immunizations Immunization Date Immunization Notes Care Provider Fa cility 02-16-2024 influenza, injectabl e, madin aime canine kidney, preservative free Kiko Holder MD Work Phone: [facility] 02-16-2024 influenza virus vacc ine, unspecified formulation Kiko oHlder MD Work Phone: [facility] 05-18-2000 hepatitis B vaccine, adult dosage Sina Mike DO Work Phone: [facility] 11-18-1999 hepatitis B vaccine, adult dosage Sina Mike DO Work Phone: [facility] 10-14-1999 hepatitis B vaccine, adult dosage Sina Mike DO Work Phone: [facility] 10-14-1999 measles, mumps and rubella virus vaccine Sina Mike DO Work Phone: [facility] 10-14-1999 TD(adult) unspecifie d formulation Sina Mike DO Work Phone: [facility] 08-05-1977 measles, mumps and rubella virus vaccine Sina Mike DO Work Phone: [facility] Payers Date Payer Category Payer Self-pay 2024 Unknown [id number] 2024 Unknown [id number] 2022 [facility] [id number] [id number] 2022 Unknown [id number] 2019 Unknown [id number] 1974 Unknown [id number] 2.16.84 [id number] 1974 Unknown [id number] 2.16.84 [id number] 1974 Unknown [id number] 2.16.84 [id number] 1974 Unknown [id number] 2.16.8 [id number] 1974 Unknown [id number] 2.16.84 [id number] 1974 Unknown [id number] 2.16.84 [id number] 1974 Unknown [id number] 2.16.84 [id number] 1974 Unknown [id number] 2.16.84 [id number] 1974 Unknown [id number] 2.16.84 [id number] 1974 Unknown [id number] 2.16.84 [id number] Social History Date Type Detail Facility Start: 11-21-2023 Tobacco smoking stat [facility] Never smoked tobacco [facility] Start: 11-21-2023 Tobacco use and exposure Smoke less tobacco non-user [facility] Start: 11-21-2023 End: 11-08-2024 Alcoholic beverage intake Current drinker of alcohol (finding) [facility] Start: 11-04-2022 End: 11-21-2023 Alcoholic beverage intake [facility] Start: 11-04-2022 End: 11-21-2023 Tobacco use panel [facility] Start: 11-17-2022 Alcohol Comment Caffeine intak e: 1-2 cups per day [facility] Start: 1974 Sex assigned at Not on file [facility] Clinical Notes 02-27-2024 to 11-13-2024 Telephone Encounter - Kiko Holder MD - 11/13/2024 3:01 PM EDTTelephone Encounter - Kiko Holder MD - 11/13/2024 3:01 PM EDTTelephone Encounter - Chandni Irvin - 11/12/2024 3:11 PM EDT Note Date & Type Note Facility 11-13-2024 Telephone encounter Note Form atting of this note might be different from the original. RX sent [facility] 11-13-2024 Miscellaneous Notes Formattin g of this note might be different from the original. RX sent Serina called requesting a refill on her Advair to [facility] in [place]. She is out. documented in this encounter [facility] 11-12-2024 Telephone encounter Note Form atting of this note might be different from the original. Serina called requesting a refill on her Advair to [facility] in [place]. She is out. [facility] 11-08-2024 History of Presen t illness Narrative Images from the original note were not included. Patient ID: Serina Horn is a 49 y.o. female who presents for: Pt noticed a small lump in her right arm just above the elbow about a week ago and she wanted to have it checked out since it is close to lymph nodes. She denies any pain, redness, or warmth. Review of Systems Constitutional: Negative for chills and fever. Respiratory: Negative for cough, shortness of breath and wheezing. Cardiovascular: Negative for chest pain and palpitations. Gastrointestinal: Negative for abdominal pain. Genitourinary: Negative for frequency and urgency. Objective On the right inner aspect of her arm she has a subcutaneous mass. It is a proximally 1.2 cm in diameter. It is not fixed. It is not tender. It is not smooth like assist, it feels more like lipoma. She also had another small lesion on the left arm that I looked at and this looks like a fibroadenoma. There is no pigment there is no central clearing there is no dimpling. It is flesh colored. 11/04/2022 4:05 PM 12/27/2022 2:23 PM 11/21/2023 3:59 PM 02/27/2024 8:47 AM 04/05/2024 11:41 AM 04/23/2024 9:21 AM 08/02/2024 8:08 AM Vitals BMI 45.19 kg/m2 47.58 kg/m2 45.19 kg/m2 44.84 kg/m2 44.22 kg/m2 44.22 kg/m2 41.64 kg/m2 BSA (m2) 2.43 m2 2.5 m2 2.43 m2 2.42 m2 2.4 m2 2.4 m2 2.33 m2 Systolic 120 122 Diastolic 74 74 Heart Rate 86 SpO2 95 % Height (in) 5' 6 5' 6 5' 6 5' 6 Weight (lb) 280 294.8 280 277.8 274 274 258 Visit Report Report Report Report Report Report Report Allergies Allergen Reactions Sulfa Antibiotics Other Reaction(s): [...] mg) in the evening. Take with meals. 180 tablet 1 montelukast (Singulair) 10 MG tablet Take 1 tablet (10 mg) by mouth at bedtime 90 tablet 1 Multiple Vitamin (multivitamin) capsule Take 1 capsule by mouth Daily No current facility-administered medications on file prior to visit. 1. Lipoma of right upper extremity (Primary) I discussed with her that I was fairly certain this is a lipoma. 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 I discussed that the only way to be absolutely sure would be biopsy in which case it would probably be an excisional biopsy. We mutually agreed not to pursue that at this time. documented in this encounter [facility] 10-03-2024 Telephone encounter Note Form atting of this note might be different from the original. Rx sent [facility] 10-03-2024 Miscellaneous Notes Formattin g of this note might be different from the original. Rx sent Serina called, She states she started in about 7 days ago with cold symptoms. She states the last 3 days she has gotten worse with thick dark drainage, bad sinus pain and pressure and headache. She states she is very congested. She is asking if Dr. Holder could send something in for her to [facility] in [place]. documented in this encounter [facility] 10-03-2024 Telephone encounter Note Form atting of this note might be different from the original. Serina called, She states she started in about 7 days ago with cold symptoms. She states the last 3 days she has gotten worse with thick dark drainage, bad sinus pain and pressure and headache. She states she is very congested. She is asking if Dr. Holder could send something in for her to [facility] in [place]. [facility] 05-17-2024 Telephone encounter Note Form atting of this note might be different from the original. RX sent [facility] 05-17-2024 Miscellaneous Notes Formattin g of this [...] have to wait tuesday. She goes to [facility] in [place]. documented in this encounter [facility] 05-17-2024 Telephone encounter Note Form atting of [...] have to wait tuesday. She goes to [facility] in [place]. [facility] 05-02-2024 History of Presen t illness Narrative [...] tablet; Refill: 0 documented in this encounter [facility] 04-23-2024 History of Presen t illness Narrative Images from the original note were not included. Patient ID: Serina Horn is a 48 y.o. female who presents for: Pt states she saw is the new eye dr at [facility]'s office in December, she had new lenses. [...] hyperglycemia, without long-term current use of insulin ([facility]) (Primary) Fasting blood sugar of 421 [...] for now after urinating. She has tried [id number] yeast creams without improvement. In prescribing a [...] 14 tablet; Refill: 0 3. Morbid obesity ([facility]) We did review how this affects the insulin resistance which has led to the diabetes. 4. Body mass index (BMI) 40.0-44.9, adult ([facility]) Defines the morbid obesity documented in this encounter [facility] 04-05-2024 History of Presen t illness Narrative [...] nursing note reviewed. Exam conducted with a top steep tender present. Vitals: Estimated body mass index is [...] after allowing sufficient time to take affect. fruit picker and scissors used to remove affected area. Placed in formalin and sent to pathology. Post-procedure instructions given. Several skin tags removed on right and left side, which will be sent to Pathology for testing. Follow Up: as needed and for annual appointment. Documented by Sepideh Guerra LPN on behalf of: EVERETTE Skinner documented in this encounter [facility] 02-27-2024 History of Presen t illness Narrative [...] Breast cancer screening by mammogram 06/26/2020 Glaucoma ([facility]) Mild intermittent asthma ([facility]) Recurrent maxillary sinusitis Suppurative otitis media HISTORY PAST MEDICAL HISTORY SOCIAL HISTORY Past Medical History: Diagnosis Date Allergic rhinitis Breast cancer screening by mammogram 06/26/2020 Glaucoma ([facility]) Mild intermittent asthma ([facility]) Recurrent maxillary sinusitis Suppurative otitis media [...] nursing note reviewed. Exam conducted with a top steep tender present. Vitals: Estimated body mass index is [...] Sina Mckeon DO documented in this encounter [facility] Evaluation note Diagnosis Well woman exam with routine gynecological exam Routine gynecological examination Breast cancer screening by mammogram Asymptomatic menopausal state Non-seasonal allergic rhinitis, unspecified trigger Moderate persistent asthma without complication ([facility]) documented [facility] encounter [facility] Diagnosis Skin tag Unspecified hypertrophic and atrophic condition of skin documented in this encounter [facility]* Diagnosis Type 2 diabetes mellitus with hyperglycemia, without long-term current use of insulin (CMS/HCC)- Primary Monilial vaginitis Morbid obesity (CMS/HCC) Morbid obesity Body mass index (BMI) 40.0-44.9, adult (CMS/HCC) documented [facility]* Diagnosis Rotator cuff syndrome of left shoulder- Primary [facility]* Diagnosis Acute non-recurrent sinusitis, unspecified location- Primary [facility] in this encounter [facility]* Diagnosis Acute non-recurrent maxillary sinusitis- Primary [facility]* Diagnosis Moderate persistent asthma without complication (HCC) [facility]* Diagnosis Lipoma of right upper extremity- Primary documented in this encounter [facility] Summary [...] AUTHOR AUTHOR'S ORGANIZ ATION 03/07/2024 [facility] DATE CREATED AUTHOR AUTHOR'S ORGANIZ ATION 04/13/2024 [facility] DATE CREATED AUTHOR AUTHOR'S ORGANIZ ATION 11/09/2024 [facility] Care Teams (unrecognized sec tion and content) [employer] Relationship Specialty Start Date End Date Kiko Holder MD [address] [place] [address] PCP - General Family Medicine 11/03/22 Kiko Holder MD [address] [place] [address] (Fax) PCP - [facility] 12/14/22 [employer] Relationship Specialty Start Date End Date Kiko Holder MD [address] [place] [address] PCP - General Family Medicine 11/03/22 Kiko Holder MD [address] [place] [address] (Fax) PCP - [facility] 12/14/22 [employer] Relationship Specialty Start Date End Date Kiko Holder MD [address] [place] [address] PCP - General Family Medicine 11/03/22 Kiko Holder MD [address] [place] [address] (Fax) PCP - [facility] 12/14/22 [employer] Relationship Specialty Start Date End Date Kiko Holder MD (Fax) PCP - General Family Medicine 11/03/22 Kiko Holder MD [address] [place] [address] (Fax) PCP - [facility] 12/14/22 [employer] Relationship Specialty Start Date End Date Kiko Holder MD (Fax) PCP - General Family Medicine 11/03/22 Kiko Holder MD [address] [place] [address] (Fax) PCP - [facility] 12/14/22 Cook [employer]chilada Relationship Specialty Start Date End Date Kiko Holder MD (Fax) PCP - General Family Medicine 11/03/22 Kiko Holder MD [address] [place] [address] (Fax) PCP - [facility] 12/14/22 Cook [employer] Relationship Specialty Start Date End Date Kiko Holder MD (Fax) PCP - General Family Medicine 11/03/22 Kiko Holder MD [address] [place] [address] (Fax) PCP - [facility] 12/14/22 Cook [employer]ada Relationship Specialty Start Date End Date Kiko Holder MD (Fax) PCP - General Family Medicine 11/03/22 Kiko Holder MD [address] [place] [address] (Fax) [facility] [employer] [place] Relationship Specialty Start Date End Date Kiko Holder MD (Fax) PCP - General Family Medicine 11/03/22 Cook [employer] Relationship Specialty Start Date End Date Kiko Holder MD (Fax) PCP - General Family Medicine 11/03/22 Cook [place] Relationship Specialty Start Date End Date Kiko Holder MD (Fax) PCP - General Family Medicine 11/03/22 Reason for Visit (unrecogniz ed section and [...] BE BASED ON THE PRIMARY CLINICAL RECORDS. [employer] [facility]. provides no warranty or guarantee of the accuracy or completeness of information in this document.
[2025-01-26 07:57] LABS: Alanine Aminotransferase 29 U/L (14-59); Albumin Globulin Ratio 0.8; Albumin Level 3.8 g/dL (3.4-5.0); Alkaline Phosphatase 80 U/L (46-116); Anion Gap 14.5; Aspartate Amino Transferase 17 U/L (15-37); Blood Urea Nitrogen 19.0 mg/dL (7.0-18.0); Calcium 9.1 mg/dL (8.5-10.1); Carbon Dioxide 26.3 mmol/L (21.0-32.0); Chloride 103 mmol/L (98-107); Cholesterol 242 mg/dL (<=200); Estimated GFR (African America >60 (>=60 mL/min/1.73m^2); Estimated GFR (Non-African Ame >60 (>=60 mL/min/1.73m^2); Globulin 4.9 g/dL; Glucose 127 mg/dL (74-106); HDL Cholesterol 54 mg/dL (40-60); Potassium 3.8 mmol/L (3.5-5.1); Sodium 140 mmol/L (136-145); Total Protein 8.7 g/dL (6.4-8.2); Triglycerides 205 mg/dL (<=150); VLDL CHOLESTEROL 41.0 mg/dL
== END 2025-01-26 07:10 | disposition home or self-care (01) ==
PROVIDERS: PCP Family Medicine; Visit Provider Family Medicine
DX: E11.9 Type 2 diabetes mellitus without complications (principal)
CPT/HCPCS: 36415; 80053; 80061

== ENCOUNTER 2025-02-28 13:07 | Outpatient (REF) | payer BC, SELFPAY ==
--- OUTSIDE RECORDS SUMMARY | 2025-02-28 13:16 | XMS_ITS | CCD ---
Author Organization [facility] Care Team Providers Care Inside Sales Person Name Role Phone JERMAN ., DR ELSA [...] Unavailable Kiko Holder MD Primary Care Provider [phone] Kiko Holder MD Unavailable [phone] Vernon Mckeon Attending Unavailable Vernon Mckeon Admitting Unavailable Kiko Holder MD Unavailable [phone] Kiko Holder MD Primary Care Provider KIKO HOLDER Attending Unavailable KIKO HOLDER Attending Unavailable LLUVIA ORTIZ Attending Unavailable KIKO HOLDER Attending Unavailable KIKO HOLDER Attending Unavailable KIKO HOLDER Attending Unavailable KIKO HOLDER Attending Unavailable Allergies Allergy Classification Reported Allergen(s) Allergy Type Date of Onset Reaction(s) Facility (1 source) Ibuprofen Drug Allergy 6 [facility] Repository (1 source) Sulfamethoxazole / Trimethoprim Drug Allergy 3 [facility] (20 sources) Sulfonamides (Antibiotic) Drug Allergy 3 [facility] (1 source) Sulfamethoxazole / Trimethoprim; Translations: [Bactrim DS] Drug Allergy [facility] Repository Medications Current Medications Medication Drug Class(es) Dates Sig (Normalized) Sig (Original) [id number] 200 actuat albuterol 0.09 mg/actuat metered dose inhaler (20 sources) beta2-Adrenergic Agonist Start: 02-27-2024 End: 02-26-2025 take 2 puff(s) by inhalation every four hours for wheezing albuterol HFA 90 mcg/act inhaler Indications: Non-seasonal allergic rhinitis, unspecified trigger Inhale 2 puffs every 4 (four) hours if needed for wheezing 18 g 2 02/26/2025 Active azelastine hydrochloride 0.137 mg/actuat metered dose [...] Active cetirizine hydrochloride 10 mg oral tablet (20 sources) Histamine-1 Receptor Antagonist Start: 11-24-2022 take [...] 02/27/2024 Active famotidine 10 mg oral tablet (20 sources) Histamine-2 Receptor Antagonist take 1 tablet by mouth once daily famotidine (Pepcid) 10 MG tablet Take 10 mg by mouth Daily Active fexofenadine hydrochloride 180 mg oral tablet (20 sources) Histamine-1 Receptor Antagonist take 1 tablet by mouth twice daily as needed fexofenadine (Daniella Allergy) 180 MG tablet Take 180 mg by mouth 2 (two) times a day as needed Active fluticasone propionate 0.05 mg/actuat metered dose nasal spray (20 sources) Corticosteroid take 1 spray(s) nasal route in the morning fluticasone (Flonase) 50 MCG/ACT nasal spray Administer 1 spray into each nostril in the morning. Active 60 actuat fluticasone propionate 0.25 mg/actuat / salmeterol 0.05 mg/actuat dry powder inhaler (20 sources) Corticosteroid, beta2-Adrenergic Agonist Start: 11-21-2023 End: 05-13-2025 take 1 puff(s) by inhalation once daily Fluticasone-Salme terol (Advair Diskus) 250-50 MCG/ACT aerosol powder Indications: Moderate persistent asthma without complication (HCC) Inhale 1 puff Daily 180 each 1 11/14/2024 05/13/2025 Active levoFLOXacin 750 mg oral tablet (5 sources) Quinolone Antimicrobial Start: 02-26-2025 End: 03-05-2025 take 1 tablet by mouth once daily levoFLOXacin (Levaquin) 750 MG tablet Indications: Pneumonia of both lower lobes due to infectious organism Take 1 tablet (750 mg) by mouth Daily for 7 days 7 tablet 02/26/2025 03/05/2025 Active metFORMIN hydrochloride 1000 mg oral tablet (20 sources) Biguanide Start: 08-02-2024 End: 07-27-2025 take 1 tablet by mouth in the morning metFORMIN (Glucophage) 1000 MG tablet Indications: Type 2 diabetes mellitus without complication, without long-term current use of insulin (HCC) Take 1 tablet (1,000 mg) by mouth in the morning and 1 tablet (1,000 mg) in the evening. Take with meals. 180 tablet 1 01/28/2025 07/27/2025 Active Start: 04-23-2024 End: 05-23-2024 take 1 [...] tablet (20 sources) Leukotriene Receptor Antagonist Start: 11-19-2024 End: 11-14-2025 take 1 tablet by mouth at bedtime montelukast (Singulair) 10 MG tablet Indications: Moderate persistent asthma without complication (HCC) Take 1 tablet (10 mg) by mouth at bedtime 90 tablet 3 11/19/2024 11/14/2025 Active Start: 11-21-2023 End: 08-25-2024 take 1 tablet by mouth at bedtime montelukast (Singulair) 10 MG tablet Indications: Moderate persistent asthma without complication (HCC) Take 1 tablet (10 mg) by mouth at bedtime 90 tablet 1 02/27/2024 Active Multiple Vitamin (multivitamin) capsule (20 sources) take 1 capsule by mouth once daily Multiple Vitamin (multivitamin) capsule Take 1 capsule by mouth Daily Active nabumetone 750 mg oral tablet (3 sources) Nonsteroidal Anti-inflammatory Drug Start: 05-02-20 24 End: 06-01-19 25 take 1 tablet by mouth in the [...] Classification Problem Date Documented Da te Episodic/Chronic Administrative/social admission (2 sources) Advance directive discussed with patient; Translations: [Other specified counseling] 02-20-2025 Episodic Asthma (20 sources) Unspecified asthma with (acute) exacerbation; Translations: [Uncomplicated moderate persistent asthma] Onset: 08-22-2022 Resolved: 11-21-2023 Chronic Diabetes mellitus without complication (18 sources) Type 2 diabetes mellitus; Translations: [Type 2 diabetes mellitus without complications] Onset: 08-02-2024 08-02-2024 Chronic Disorders of lipid metabolism (2 sources) Mixed hyperlipidemia; Translations: [Mixed hyperlipidemia] 01-28-2025 Chronic Mycoses (2 sources) Candidiasis of vagina; [...] Episodic Other nutritional; endocrine; and metabolic disorders (20 sources) Morbid obesity; Translations: [Morbid (severe) obesity due to excess calories] Onset: 04-26-2024 04-26-2024 Chronic Other nutritional; endocrine; and metabolic disorders (2 sources) Body mass index 40+ - severely obese; Translations: [Body mass index (BMI) 40.0-44.9, adult] 04-26-2024 Chronic Other screening for suspected conditions (not mental disorders or infectious disease) (10 sources) Encounter for screening for malignant neoplasm of cervix; Translations: [Patient encounter status] Onset: 11-17-2021 Episodic Other skin disorders (1 source) Skin tag; Translations: [Other hypertrophic disorders of the skin] 04-05-2024 Episodic Other upper respiratory disease (20 sources) Allergic rhinitis; Translations: [Allergic rhinitis, unspecified] Onset: 12-21-2022 12-21-2022 Chronic Other upper respiratory infections (20 sources) Chronic pansinusitis; Translations: [Chronic pansinusitis] Onset: 11-03-2022 11-03-2022 Chronic Other upper respiratory infections (2 sources) Acute sinusitis; Translations: [Acute sinusitis, unspecified] 05-17-2024 Episodic Pneumonia (except that caused by tuberculosis or sexually transmitted disease) (2 sources) Bilateral pneumonia; Translations: [Pneumonia, unspecified organism] 02-26-2025 Episodic Residual codes; unclassified (2 sources) Menopause present; Translations: [Asymptomatic menopausal state] 02-27-2024 Episodic Residual codes; unclassified (2 sources) Reduced libido; Translations: [Decreased libido] 02-28-2025 Episodic Unclassified (3 sources) CONTACT W/AND (SUSP) EXPOS COVID-19; Translations: [CONTACT W/AND (SUSP) EXPOS COVID-19] Onset: 05-05-2022 Past or Other Problems Problem Classification Problem Date Documented Date Episodic/Chronic Diabetes mellitus with complications (20 sources) Hyperglycemia due to type 2 diabetes mellitus; Translations: [Type 2 diabetes mellitus with hyperglycemia] Onset: 04-26-2024 Resolved: 08-02-2024 04-23-2024 Chronic Immunizations and screening for infectious disease (1 source) Encounter for screening for human papillomavirus (HPV); Translations: [ENC SCREENING HUMAN PAPILLOMAVIRUS] Onset: 11-20-2021 Episodic Other nutritional; endocrine; and metabolic disorders (20 sources) Obese class III; Translations: [Class 3 obesity] Onset: 12-21-2022 Resolved: 11-21-2023 11-21-2023 Chronic Unclassified (1 source) CONTACT W/AND (SUSP) EXPOS COVID-19; Translations: [CONTACT W/AND (SUSP) EXPOS COVID-19] Onset: 05-03-2022 Unclassified (4 sources) Patient encounter status 02-26-2025 Varicose veins of lower extremity (20 sources) Venous varices; Translations: [Asymptomatic varicose veins of unspecified lower extremity] Onset: 11-15-2012 11-03-2022 Episodic Results Test Name Value Interpretation Reference Range Facility ALL LIPID PROFILE (FASTING)o n 01-26-2025 CHOL HDL RATIO 4.5 [facility] Comment on above: 3.3 - 4.4 LOW RISK 4.4 - 7.1 AVERAGE RISK 7.1 - 11.0 MODERATE RISK >11.0 HIGH RISK Cholesterol [Mass/Vol] 242 mg/dL High NINF - 200 mg/dL [facility] Cholesterol in HDL [Mass/Vol] 54 mg/dL 40 - 60 mg/dL [facility] Comment on above: > or =60 mg/dl - LOW CARDIOVASCULAR RISK <40 mg/dl - HIGH CARDIOVASCULAR RISK Magnesium [Mass/Vol] 147 mg/dL [facility] Comment on above: <100 mg/dl OPTIMAL 100-129 mg/dl NEAR OR ABOVE OPTIMAL 130-159 mg/dl BORDERLINE HIGH 160-189 mg/dl HIGH >190 mg/dl VERY HIGH Magnesium [Mass/Vol] 41 mg/dL [facility] Triglyceride [Mass/Vol] 205 mg/dL High NINF - 150 mg/dL [facility] CMP (CMP) (FOR REMOTE FH C USE)on 01-26-2025 Albumin [Mass/Vol] 3.8 g/dL 3.4 - 5.0 g/dL NO [facility] ALBUMIN GLOBULIN RATIO 0.8 [facility] ALP [Catalytic activity/Vol] 80 U/L 46 - 116 U/L [facility] ALT [Catalytic activity/Vol] 29 U/L 14 - 59 U/L [facility] Anion gap [Moles/Vol] 14.5 mmol/L [facility] AST [Catalytic activity/Vol] 17 U/L 15 - 37 U/L [facility] Bilirubin [Mass/Vol] 0.5 mg/dL 0.2 - 1.0 mg/dL [facility] Calcium [Mass/Vol] 9.1 mg/dL 8.5 - 10. 1 mg/dL [facility] Chloride [Moles/Vol] 103 mmol/L 98 - 107 mmol/L [facility] CO2 [Moles/Vol] 26.3 mmol/L 21.0 - 32.0 mmol/L [facility] Creatinine [Mass/Vol] 0.73 mg/dL 0.55 - 1.02 mg/dL [facility] GFR/1.73 sq M.predicted CKD-EPI (S/P/Bld) [Vol rate/Area] >60 >=60 mL/min/1.73m 2 [facility] Globulin (S) [Mass/Vol] 4.9 g/dL [facility] Glucose [Mass/Vol] 127 mg/dL High 74 - 106 mg/dL [facility] Potassium [Moles/Vol] 3.8 mmol/L 3.5 - 5.1 mmol/L [facility] Protein [Mass/Vol] 8.7 g/dL High 6.4 - 8.2 g/dL [facility] Sodium [Moles/Vol] 140 mmol/L 136 - 145 mmol/L [facility] TBH EGFR-NON AF LIBERIAN >60 >=60 mL/min/1.73m 2 [facility] Urea nitrogen [Mass/Vol] 19 mg/dL High 7.0 - 18.0 mg/dL [facility] Urea nitrogen/Creatinine [Mass ratio] 26 mg/mg [facility] No Panel Informationon 01-26 Interpretation and review of laboratory results [facility]normal [facility] MLR HEMOGLOBIN A1Con 09-28- 025 Glucose [Mass/Vol] 128 mg/dL [facility] HbA1c (Bld) [Mass fraction] 6.1 % 4.5 - 6.2 % [facility] Comment on above: ADA RECOMMENDED LIMI T 4.0 - 6.0 ADA THERAPEUTIC TARGET < 7.0 ACTION SUGGESTED > 7.0 [facility] MLR HEMOGLOBIN A1Con 05-01-2 024 Glucose [Mass/Vol] 269 mg/dL [facility] HbA1c (Bld) [Mass fraction] 11 % High 4.5 - 6.2 % [facility] Comment on above: REPEATED FOR VERIFIC ATION ADA RECOMMENDED LIMIT 4.0 - 6.0 ADA THERAPEUTIC TARGET < 7.0 ACTION SUGGESTED > 7.0 Interpretation and review of laboratory results Abnormal [facility] ALL LIPID PROFILE (FASTING)o n 04-23-2024 CHOL HDL RATIO 5.5 [facility] Comment on above: 3.3 - 4.4 LOW RISK 4.4 - 7.1 AVERAGE RISK 7.1 - 11.0 MODERATE RISK >11.0 HIGH RISK Cholesterol [Mass/Vol] 225 mg/dL High NINF - 200 mg/dL [facility] Cholesterol in HDL [Mass/Vol] 41 mg/dL 40 - 60 mg/dL [facility] Comment on above: > or =60 mg/dl - LOW CARDIOVASCULAR RISK <40 mg/dl - HIGH CARDIOVASCULAR RISK Magnesium [Mass/Vol] 138 mg/dL [facility] Comment on above: <100 mg/dl OPTIMAL 100-129 mg/dl NEAR OR ABOVE OPTIMAL 130-159 mg/dl BORDERLINE HIGH 160-189 mg/dl HIGH >190 mg/dl VERY HIGH Magnesium [Mass/Vol] 46.6 mg/dL [facility] Triglyceride [Mass/Vol] 233 mg/dL High NINF - 150 mg/dL [facility] CMP (CMP) (FOR REMOTE FH C USE)on 04-23-2024 Albumin [Mass/Vol] 3.3 g/dL Low 3.4 - 5.0 g/dL [facility] ALBUMIN GLOBULIN RATIO 0.7 [facility] ALP [Catalytic activity/Vol] 117 U/L High 46 - 116 U/L [facility] ALT [Catalytic activity/Vol] 137 U/L High 14 - 59 U/L [facility] Anion gap [Moles/Vol] 14.7 mmol/L [facility] AST [Catalytic activity/Vol] 152 U/L High 15 - 37 U/L [facility] Bilirubin [Mass/Vol] 0.6 mg/dL 0.2 - 1.0 mg/dL [facility] Calcium [Mass/Vol] 9.1 mg/dL 8.5 - 10. 1 mg/dL [facility] Chloride [Moles/Vol] 98 mmol/L 98 - 107 mmol/L [facility] CO2 [Moles/Vol] 25.6 mmol/L 21.0 - 32.0 mmol/L [facility] Creatinine [Mass/Vol] 0.96 mg/dL 0.55 - 1.02 mg/dL [facility] GFR/1.73 sq M.predicted CKD-EPI (S/P/Bld) [Vol rate/Area] >60 >=60 mL/min/1.73m 2 [facility] Globulin (S) [Mass/Vol] 4.5 g/dL [facility] Glucose [Mass/Vol] 421 mg/dL High 74 - 106 mg/dL NO [facility] Potassium [Moles/Vol] 4.3 mmol/L 3.5 - 5.1 mmol/L [facility] Protein [Mass/Vol] 7.8 g/dL 6.4 - 8.2 g/dL NO [facility] Sodium [Moles/Vol] 134 mmol/L Low 136 - 145 mmol/L [facility] TBH EGFR-NON AF LIBERIAN >60 >=60 mL/min/1.73m 2 [facility] Urea nitrogen [Mass/Vol] 9 mg/dL 7.0 - 18.0 mg/dL [facility] Urea nitrogen/Creatinine [Mass ratio] 9.4 mg/mg [facility] No Panel Informationon 04-23 Interpretation and review of laboratory results Abnormal [facility] Pathology Request for Lab Co rpon 04-05-2024 Pathology Request for Lab Stephy Normal [facility] Comment on above: Order Comment: PATHO LOGY SKIN SPECIMEN Result Comment: See report. Scanned copy available in EMR. PERFORMED BY: [place] [address] PATHOLOGIST CUSTOMER CONSULTING MANAGER ANTONINO MARIA M.D. Performed By: #### P ATH TO [facility] #### [place] [address] [place] IGP,APTIMA HPV,AGE GDLNon AGE GDLN ACOG TESTING Note . [facility] Comment on above: TESTS RESULT FLAG UN ITS REF RANGE LAB Clinician Provided Cytology Information Source.............Vagina No. of containers..01 ThinPrep Vial Age Ta DOTY Georgina... 29 FLAG LEGEND: L-Low Normal,H-High Normal,LL-Alert Low,HH-Alert High <-Panic Low,>-Panic High,A-Abnormal,AA-Critical Abnormal Performed at: 01 =G [address] [place] [address] Leilani Hunter MD, HPV APTIMA Negative Negative [facility] Comment on above: This nucleic acid am plification test detects fourteen high- risk HPV types (16,18,31,33,35,39,45,51,52,56,58,59,66,68) without differentiation. Performed at: =G - [facility] [id number] Computer System Validation Specialist: Leilani Hunter MD, Phone: [phone] Performed at: - [address] [id number] Computer System Validation Specialist: Leilani Hunter MD, Phone: [phone] IGP, APTIMA HPV, RFX 16/18,45 Note . [facility] Comment on above: TESTS RESULT FLAG UN ITS REF RANGE LAB DIAGNOSIS: 02 NEGATIVE FOR INTRAEPITHELIAL LESION OR MALIGNANCY. Specimen adequacy: 02 Satisfactory for evaluation. No endocervical component is identified. Performed by: 02 Yovana Espino Property Site Manager (ASC) . 02 Note: Note 02 The [...] <-Panic Low,>-Panic High,A-Abnormal,AA-Critical Abnormal Performed at: [address] [id number] Leilani Hunter MD, SPATULA-ALONE VAGINA [facility] Cytology Cervical or vaginal smear or scraping studyon 02-27-2024 [facility] CARDIAC ANDRESSA ADMITon 023 CK [Catalytic activity/Vol] 70 U/L Normal 26-192 [facility] Comment on above: Performed By: #### C YOJANA BARTHOLOMEW #### [facility] [address] [place] [address] Dr. Ambrocio Rubio CK.MB [Mass/Vol] 0.93 ng/mL Normal <=3.60 [facility] Comment on above: Performed By: #### C [place], CMADM #### [facility] [address] [address] [address] Ambrocio Rubio HSTROP 4.6 pg/mL Normal 4.0-51.3 [facility] Comment on above: Result Comment: CUT- OFF POINTS HAVE BEEN ESTABLISHED BASED ON THE FOURTH UNIVERSAL DEFINITIONS OF MYOCARDIAL INFARCTION. THE UPPER REFERENCE LIMIT (URL) OF TROPONIN, DEFINED THE 99TH PERCENTILE OF cTnI DISTRIBUTION IN A REFERENCE POPULATION, HAS BEEN CONFIRMED THE DECISION THRESHOLD FOR PA DIAGNOSIS. Performed By: #### C [place], CMADM #### [facility] [address] [address] [address] Ambrocio Rubio MICHAEL 41 ng/mL Normal 9-82 [facility] Comment on above: Performed By: #### C [place], CMADM #### [facility] [address] [place] [address] Dr. Ambrocio Rubio CBC AUTO DIFFon 08-22-2022 BASO # 0.1 103/ul Normal 0.0-0.1 [facility] Comment on above: Performed By: #### C BC #### [facility] [address] [address] [address] Ambrocio Rubio Basophils/100 WBC (Bld) 0.9 % Normal 0.2-2.0 [facility] Comment on above: Performed By: #### C BC #### [facility] [address] [address] [address] Ambrocio Rubio EO # 0.8 103/ul Critically high 0.0-0.7 [facility] Comment on above: Performed By: #### C BC #### [facility] [address] [address] [address] Ambrocio Rubio Eosinophils/100 WBC (Bld) 8.3 % Critically high 0.9-7.0 [facility] Comment on above: Performed By: #### C BC #### [facility] [address] [place] [address] Dr. Ambrocio Rubio Erythrocyte distribution width (RBC) [Ratio] 13.3 % Normal 11.0-15.0 [facility] Comment on above: Performed By: #### C BC #### [facility] [address] [address] [address] Ambrocio Rubio Hematocrit (Bld) [Volume fraction] 42.9 % Normal 36.0-48.0 [facility] Comment on above: Performed By: #### C BC #### [facility] [address] [address] [address] Ambrocio Rubio Hemoglobin (Bld) [Mass/Vol] 14.2 g/dL Normal 12.0-16.0 [facility] Comment on above: Performed By: #### C BC #### [facility] [address] [place] [address] Dr. Ambrocio Rubio IG # 0.04 10e3/ul Critically high 0.00-0.03 [facility] Comment on above: Performed By: #### C BC #### [facility] [address] [place] [address] Dr. Ambrocio Rubio IG % 0.4 % Normal 0.0-0.5 [facility] Comment on above: Performed By: #### C BC #### [facility] [address] [address] [address] Ambrocio Rubio LYMPH # 4.3 103/ul Critically high 1.2-3.8 [facility] Comment on above: Performed By: #### C BC #### [facility] [address] [place] [address] Dr. Ambrocio Rubio Lymphocytes/100 WBC (Bld) 43.2 % Normal 20.5-60.0 [facility] Comment on above: Performed By: #### C BC #### [facility] [address] [place] [address] Dr. Ambrocio Rubio MANUAL DIFF REQ NO Normal [facility] Comment on above: Performed By: #### C BC #### [facility] [address] [place] [address] Dr. Ambrocio Rubio MCH (RBC) [Entitic mass] 28.5 pg Normal 26.7-34.0 [facility] Comment on above: Performed By: #### C BC #### [facility] [address] [address] [address] Ambrocio Rubio MCHC (RBC) [Mass/Vol] 33.1 g/dL Normal 29.9-35.2 [facility] Comment on above: Performed By: #### C BC #### [facility] [address] [place] [address] Dr. Ambrocio Rubio MCV (RBC) [Entitic vol] 86.0 fL Normal 81.0-99.0 [facility] Comment on above: Performed By: #### C BC #### [facility] [address] [place] [address] Dr. Ambrocio Rubio MONO # 0.6 103/ul Normal 0.3-0.8 [facility] Comment on above: Performed By: #### C BC #### [facility] [address] [place] [address] Dr. Ambrocio Rubio Monocytes/100 WBC (Bld) 6.0 % Normal 1.7-12.0 [facility] Comment on above: Performed By: #### C BC #### [facility] [address] [place] [address] Dr. Ambrocio Rubio NEUT # 4.1 103/ul Normal 1.4-6.5 [facility] Comment on above: Performed By: #### C BC #### [facility] [address] [place] [address] Dr. Ambrocio Rubio Neutrophils/100 WBC (Bld) 41.2 % Critically low 43.0-75.0 [facility] Comment on above: Performed By: #### C BC #### [facility] [address] [place] [address] Dr. Ambrocio Rubio Platelet mean volume (Bld) [Entitic vol] 10.1 fL Normal 9.5-13.5 [facility] Comment on above: Performed By: #### C BC #### [facility] [address] [place] [address] Dr. Ambrocio Rubio PLT 244 103/ul Normal 150-450 [facility] Comment on above: Performed By: #### C BC #### [facility] [address] [place] [address] Dr. Ambrocio Rubio RBC 4.99 106/ul Normal 4.20-5.40 [facility] Comment on above: Performed By: #### C BC #### [facility] [address] [place] [address] Dr. Ambrocio Rubio WBC 9.9 103/ul Normal 4.0-11.0 [facility] Comment on above: Performed By: #### C BC #### [facility] [address] [place] [address] Dr. Ambrocio Rubio PROF 14(COMP METB)on 023 Albumin [Mass/Vol] 3.7 g/dL Normal 3.4-5.0 [facility] Comment on above: Performed By: #### C DIANA BARTHOLOMEWDM #### [facility] [address] [place] [address] Dr. Ambrocio Rubio Albumin/Globulin [Mass ratio] 0.8 {ratio} Normal [facility] Comment on above: Performed By: #### C [place] CMADM #### [facility] [address] [place] [address] Dr. Ambrocio Rubio ALP [Catalytic activity/Vol] 82 U/L Normal 46-116 [facility] Comment on above: Performed By: #### C [place], CMADM #### [facility] [address] [place] [address] Dr. Ambrocio Rubio ALT [Catalytic activity/Vol] 34 U/L Normal 14-59 [facility] Comment on above: Performed By: #### C [place], CMADM #### [facility] [address] [place] [address] Dr. Ambrocio Rubio Anion gap [Moles/Vol] 13.6 mmol/L Normal [facility] Comment on above: Performed By: #### C [place], CMADM #### [facility] [address] [place] [address] Dr. Ambrocio Rubio AST [Catalytic activity/Vol] 17 U/L Normal 15-37 [facility] Comment on above: Performed By: #### C [place], CMADM #### [facility] [facility] [address] [address] [address] Ambrocio Rubio Bilirubin [Mass/Vol] 0.3 mg/dL Normal 0.2-1.0 [facility] Comment on above: Performed By: #### C MP, CMADM #### [facility] [address] [address] [address] Ambrocio Rubio Calcium [Mass/Vol] 9.0 mg/dL Normal 8.5-10.1 [facility] Comment on above: Performed By: #### C MP, CMADM #### [facility] [address] [address] [address] Ambrocio Rubio Chloride [Moles/Vol] 104 mmol/L Normal 98-107 [facility] Comment on above: Performed By: #### C MP, CMADM #### [facility] [address] [place] [address] Dr. Ambrocio Rubio CO2 [Moles/Vol] 27.9 mmol/L Normal 21.0-32.0 [facility] Comment on above: Performed By: #### C MP, CMADM #### [facility] [address] [place] [address] Dr. Ambrocio Rubio Creatinine [Mass/Vol] 0.82 mg/dL Normal 0.55-1.02 [facility] Comment on above: Performed By: #### C MP, CMADM #### [facility] [address] [place] [address] Dr. Ambrocio Rubio EGFR-AF LIBERIAN >60 Normal >=60 [facility] Comment on above: Performed By: #### C MP, CMADM #### [facility] [address] [place] [address] Dr. Ambrocio Rubio EGFR-NON AF LIBERIAN >60 Normal >=60 [facility] Comment on above: Performed By: #### C MP, CMADM #### [facility] [address] [place] [address] Dr. Ambrocio Rubio Globulin (S) [Mass/Vol] 4.5 g/dL Normal [facility] Comment on above: Performed By: #### C MP, CMADM #### [facility] [address] [address] [address] Amrbocio Rubio Glucose [Mass/Vol] 140 mg/dL Critically high 74-106 T [facility] Comment on above: Performed By: #### C MP, CMADM #### [facility] [address] [address] [address] Ambrocio Rubio Potassium [Moles/Vol] 3.5 mmol/L Normal 3.5-5.1 [facility] Comment on above: Performed By: #### C MP, CMADM #### [facility] [address] [address] [address] Ambrocio Rubio Protein [Mass/Vol] 8.2 g/dL Normal 6.4-8.2 [facility] Comment on above: Performed By: #### C [place], CMADM #### [facility] [address] [address] [address] Ambrocio Rubio Sodium [Moles/Vol] 142 mmol/L Normal 136-145 [facility] Comment on above: Performed By: #### C [place], CMADM #### [facility] [address] [address] [address] Ambrocio Rubio Urea nitrogen [Mass/Vol] 14.0 mg/dL Normal 7.0-18.0 [facility] Comment on above: Performed By: #### C [place], CMADM #### [facility] [address] [address] [address] Ambrocio Rubio Urea nitrogen/Creatinine [Mass ratio] 17.1 mg/mg Normal [facility] Comment on above: Performed By: #### C [place], CMADM #### [facility] [address] [address] [address] Ambrocio Rubio XR CHEST 1 Von [...] Date: 2022-08-22 10:48 Normal [facility] Covid-19 PCR (CVDTBH)on 04-15 SARS-CoV-2 (COVID-19) RNA JO+probe Ql (Unsp spec) Not detected Normal NOT DETECTED [facility] Comment on above: Result Comment: When [...] for this test is supported by the Fireboat Operator of Health and Human Service's declaration that [...] By: #### C VDTBH #### [facility] [address] [address] [address] Ambrocio Rubio PAP ACOG PANEL 2: 30 to 65on 11-20-[address] [facility] Comment on above: Result Comment: Perf ormed at: WB Performed By: #### [id number] #### [facility] [address] [address] [address] Ambrocio Rubio Age Gdln ACOG Testing - Normal [facility] Comment on above: Performed By: #### [id number] #### [facility] [address] [address] [address] Ambrocio Rubio DIAGNOSIS: Comment Normal [facility] Comment on above: Result Comment: NEGA TIVE FOR INTRAEPITHELIAL LESION OR MALIGNANCY. Performed at: WB Performed By: #### [id number] #### [facility] [address] [address] [address] Ambrocio Rubio HPV Aptima Negative Normal Negative [facility] Comment on above: Result Comment: This nucleic acid amplification test detects fourteen high-risk HPV types (16,18,31,33,35,39,45,51,52,56,58,59,66,68) without differentiation. Performed at: =G Performed By: #### [id number] #### [facility] [address] [place] [address] Dr. Ambrocio Rubio Methodology: Comment Normal [facility] Comment on above: Result Comment: This liquid based ThinPrep(R) pap test was screened with the use of an image guided system. Performed at: WB Performed By: #### [id number] #### [facility] [address] [place] [address] Dr. Ambrocio Rubio Note: Comment Normal [facility] Comment on above: Result Comment: The Pap smear is a screening test designed to aid in the detection of premalignant and malignant conditions of the uterine cervix. It is not a diagnostic procedure and should not be used as the sole means of detecting cervical cancer. Both false-positive and false-negative reports do occur. . Performed at: WB Performed By: #### [id number] #### [facility] [address] [place] [address] Dr. Ambrocio Rubio Performed by: Comment Normal [facility] Comment on above: Result Comment: Donte Alonzo, Property Site Manager (ASCP) Performed at: WB Performed By: #### [id number] #### [facility] [address] [place] [address] Dr. Ambrocio Rubio Specimen adequacy: Comment Normal [facility] Comment on above: Result Comment: Sati sfactory for evaluation. No endocervical component is identified. Performed at: WB Performed By: #### [id number] #### [facility] [address] [place] [address] Dr. Ambrocio Rubio Vital Signs Date Time Vital Sign Value Performing Clinician Felipe sibley 02-28-2025 10:20-0400 Body height 167.6 cm Vernon Mike Datameer Work Phone: [facility] 02-28-2025 10:20-0400 Body mass index (BMI) [Ratio] 39.03 kg/m2 Vernon Mike DO Work Phone: [facility] 02-28-2025 10:20-0400 Body weight 109.68 kg Vernon Mike DO Work Phone: [facility] 02-28-2025 10:20-0400 Diastolic blood pressure 78 mm[Hg] Vernon Mike DO Work Phone: [facility] 02-28-2025 10:20-0400 Systolic blood pressure 130 mm[Hg] Vernon Mike DO Work Phone: [facility] 02-26-2025 11:32-0400 Body height 167.6 cm Kiko Holder MD Work Phone: [facility] 02-26-2025 11:32-0400 Body mass index (BMI) [Ratio] 39.71 kg/m2 Kiko Holder MD Work Phone: [facility] 02-26-2025 11:32-0400 Body weight 111.58 kg Kiko Hloder MD Work Phone: [facility] 02-26-2025 11:32-0400 Diastolic blood pressure 76 mm[Hg] Kiko Holder MD Work Phone: [facility] 02-26-2025 11:32-0400 Heart rate 69 /min Kiko Holder MD Work Phone: [facility] 02-26-2025 11:32-0400 SaO2% (BldA) [Mass fraction] 99 % Kiko Holder MD Work Phone: [facility] 02-26-2025 11:32-0400 Systolic blood pressure 126 mm[Hg] Kiko Holder MD Work Phone: [facility] 01-28-2025 14:47-0400 Body height 167.6 cm Kiko Holder MD Work Phone: [facility] 01-28-2025 14:47-0400 Body mass index (BMI) [Ratio] 38.58 kg/m2 Kiko Holder MD Work Phone: [facility] 01-28-2025 14:47-0400 Body weight 108.41 kg Kiko Holder MD Work Phone: [facility] 04-23-2024 09:21-0500 Body height 167.6 cm iKko Holder MD Work Phone: [facility] 04-23-2024 09:21-0500 Body mass index (BMI) [Ratio] 44.22 kg/m2 Kiko Holder MD Work Phone: [facility] 04-23-2024 09:21-0500 Body weight 124.29 kg Kiko Holder MD Work Phone: [facility] 04-05-2024 11:41-0500 Body mass index (BMI) [Ratio] 44.22 kg/m2 Lluvia GAVIRIA Work Phone: [facility] 04-05-2024 11:41-0500 Body weight 124.29 kg Lluvia GAVIRIA Work Phone: [facility] 02-27-2024 08:47-0400 Body mass index (BMI) [Ratio] 44.84 kg/m2 Vernon Mike DO Work Phone: [facility] 02-27-2024 08:47-0400 Body weight 126.01 kg Vernon Mike DO Work Phone: [facility] 02-27-2024 08:47-0400 Diastolic blood pressure 74 mm[Hg] Vernon Mike DO Work Phone: [facility] 02-27-2024 08:47-0400 Systolic blood pressure 122 mm[Hg] Vernon Mike DO Work Phone: [facility] Encounters Encounter Date Encounter Type Care Provider Facility Start: 02-28-2025 End: 02-28-2025 Bamboo flowsheet Vernon Mike DO Work Phone: [facility] Brianna ROUSE Start: 02-28-2025 End: 02-28-2025 Bamboo flowsheet Vernon Mike DO Work Phone: [facility] Brianna PEREZGONZALEZ Start: 02-28-2025 End: 02-28-2025 Patient encounter procedure Vernon Mckeon DO Work Phone: [facility] Start: 02-28-2025 End: 02-28-2025 Periodic preventive med est patient 40-64yrs Vernon Mckeon DO Work Phone: [facility] Brianna PADMA Comment on above: Well woman exam with routine gynecological exam; Encounter for screening mammogram for malignant neoplasm of breast; Decreased sex drive Start: 02-26-2025 End: 02-26-2025 Bamboo flowsheet Kiko Holder MD Work Phone: [address] Start: 02-26-2025 End: 02-26-2025 Bamboo MotorExchangeheet Kiko Holder MD Work Phone: [address] Start: 02-26-2025 End: 02-26-2025 Patient encounter status Kiko Holder MD Work Phone: [facility] Start: 02-26-2025 End: 02-26-2025 Periodic preventive med est patient 40-64yrs Kiko Holder MD Work Phone: [address] Comment on above: Encounter for wellne ss examination in adult (Primary Dx); Advance directive discussed with patient; Morbid obesity ([facility]); Non-seasonal allergic rhinitis, unspecified trigger; Pneumonia of both lower lobes due to infectious organism; Moderate persistent asthma with acute exacerbation (HCC); Screening for colon cancer Start: 02-26-2025 End: 02-26-2025 ambulatory KIKO HOLDER Not Available Start: 01-28-2025 End: 01-28-2025 ambulatory KIKO HOLDER Not Available Start: 01-28-2025 End: 01-28-2025 Office outpatient visit 25 minutes Kiko Holder MD Work Phone: [address] Comment on above: Type 2 diabetes jareth itus without complication, without long- term current use of insulin (HCC); Morbid obesity (CMS-HCC); Mixed hyperlipidemia Start: 01-28-2025 End: 01-28-2025 Bamboo flowsheet Kiko Holder MD Work Phone: [facility] [place] [facility] Start: 01-28-2025 End: 01-28-2025 Bamboo flowsheet Kiko Holder MD Work Phone: [facility] [place] [facility] Start: 01-26-2025 End: 01-26-2025 Clinisync Result Encounter Kiko Holder MD Work Phone: [facility] Unsolicited Start: 01-26-2025 End: 01-26-2025 Clinisync Result Encounter Kiko Holder MD Work Phone: [facility] Unsolicited Start: 11-12-2024 End: 11-13-2024 Telephone encounter Kiko [...] hyperglycemia, without long-term current use of insulin ([facility]) (Primary Dx); Monilial vaginitis; Morbid obesity ([facility]); Body mass index (BMI) 40.0-44.9, adult ([facility]) Start: 04-23-2024 End: 04-23-2024 ambulatory KIKO HOLDER Not Available Start: 04-05-2024 End: 04-05-2024 Patient encounter procedure Lluvia GAVIRIA Work Phone: [facility] Comment on above: Skin tag Start: 04-05-2024 End: 04-05-2024 ambulatory Vernon Mike Facility:[facility] Start: 03-05-2024 ambulatory Facility:[facility] Reed Start: 02-29-2024 ambulatory Facility:Negrita Douglas Start: 02-27-2024 End: 02-27-2024 Bamboo flowsheet Vernon Mike DO Work Phone: [facility] Start: 02-27-2024 End: 03-02-2024 Bamboo flowsheet Vernon Mike DO Work Phone: [facility] Start: 02-27-2024 End: 03-02-2024 Clinisync Result Encounter Generic External Data Provider [facility] Unsolicited Start: 02-27-2024 End: 02-27-2024 Patient encounter procedure Vernon Mike DO Work Phone: [facility] Work Phone: Start: 02-27-2024 End: 02-27-2024 Periodic preventive med est patient 40-64yrs Vernon Mike DO Work Phone: [facility] Comment on above: Well woman exam with routine gynecological exam; Breast cancer screening by mammogram; Asymptomatic menopausal state; Non-seasonal allergic rhinitis, unspecified trigger; Moderate persistent asthma without complication ([facility]) Start: 08-22-2022 End: 08-22-[address] ELSA STOLL . Facility: Start: 05-03-2022 End: 05-03-2022 ambulatory DARIN BARRIOS Facility: Start: 11-17-2021 End: 11-17-[address] SUBHA GUERRERO . Facility: Procedures Date Procedure Procedure Detail Performing Clinician Start: 01-26-2025 ALL LIPID PROFILE (FASTING) Kiko Holder MD Work Phone: Start: 01-26-2025 [facility] CMP (CMP) (FOR [facility] USE) Kiko Holder MD Work Phone: Start: 09-28-2024 MLR HEMOGLOBIN A1C Edwa ann Holder MD Work Phone: Start: 05-01-2024 MLR HEMOGLOBIN A1C Edandre Holder MD Work Phone: Start: 04-23-2024 ALL LIPID PROFILE (FASTING) Kiko Holder MD Work Phone: Start: 04-23-2024 [facility] CMP (CMP) (FOR [facility] USE) Kiko Holder MD Work Phone: Start: 02-27-2024 IGP,APTIMA HPV,AGE GDLN Amind DO Work Phone: Start: 02-27-2024 Cytp cerv/vag auto t hin layer prep mnl screen Amind DO Work Phone: Plan of Treatment Date Care Activity Detail Author Start: 04-17-2026 Glaucoma screening Diabetes: R etinopathy Screening [facility] Start: 03-06-2026 End: 03-06-2026 Patient encounter procedure 03/06/2026 2:00 PM EDT Procedure Visit [facility] [address] [facility] [place] [address] Lluvia Ortiz PA [address] [place] [address] [facility] OBGON[facility] Start: 11-12-2025 Influenza vaccination Influenza Vacc ine (#1) [facility] Comment on above: Postponed from 01/14 (Patient Refused) Start: 07-31-2025 Urine screening for protein Diabetes: Urine Protein Screening [facility] Start: 04-29-2025 End: 04-29-2025 Patient encounter procedure 04/29/2025 4:30 PM EST Office [place] [address] [address] Family [facility] [address] [facility] [address] [place] [address] Kiko Holder MD [address] [facility] 100 [place] [address] Start: 03-31-2025 Hemoglobin A1c measurement Diabetes: Hemoglobin A1C [facility] Start: 03-30-2025 End: 01-28-2026 Hemoglobin A1c/Hemoglobin.total in Blood Hemoglobin A1c Lab Routine Type 2 diabetes mellitus without complication, without long-term current use of insulin (HCC) Expected: 03/30/2025 (Approximate), Expires: 01/28/2026 [facility] Work Phone: Comment on above: Expected: 03/30/2025 (Approximate), Expires: 01/28/2026 Start: 03-30-2025 End: 01-28-2026 Lipid 1996 panel - Serum or Plasma Lipid panel Lab Routine Mixed hyperlipidemia Expected: 03/30/2025 (Approximate), Expires: 01/28/2026 [facility] Comment on above: Expected: 03/30/2025 (Approximate), Expires: 01/28/2026 Start: 02-28-2025 End: 02-28-2026 DXA Skeletal system Views for bone density DEXA bone density Imaging Routine Well woman exam with routine gynecological exam Expected: 02/28/2025 (Approximate), Expires: 02/28/2026 [facility] Comment on above: Expected: 02/28/2025 (Approximate), Expires: 02/28/2026 Start: 02-28-2025 End: 04-30-2026 MG Breast - bilateral Screening Bilateral screening mammogram Imaging Routine Encounter for screening mammogram for malignant neoplasm of breast Expected: 02/28/2025, Expires: 04/30/2026 [facility] Work Phone: Comment on above: Expected: 02/28/2025 , Expires: 04/30/2026 Start: 02-28-2025 End: 02-28-2025 Patient encounter procedure [facility] Comment on above: Arrived Start: 02-26-2025 End: 02-26-2025 Patient encounter procedure 02/26/2025 11:30 AM EDT Office Visit [facility] [place] [facility] [address] [place] [address] Kiko Holder MD [address] [place] [address] Encounter for wellness examination in adult; Advance directive discussed with patient; Morbid obesity [place] [facility] [place] [facility] Comment on above: Encounter for wellne ss examination in adult; Advance directive discussed with patient; Morbid obesity ([facility]) Start: 01-28-2025 End: 01-28-2025 Patient encounter procedure 01/28/2025 2:30 PM EDT Office Visit [facility] [place] [facility] [address] [place] [address] Kiko Holder MD [address] [place] [address] [facility] [place] [facility] Start: 01-22-2025 End: 01-22-2025 Patient encounter procedure 01/22/2025 8:00 AM EDT Office Visit [facility] [address] [place] [address] Kiko Holder MD [address] [place] [address] (Fax) [facility] Start: 01-14-2025 Influenza vaccination Influenza Vacc ine (#1) [facility] Start: 10-01-2024 End: 10-01-2024 Patient encounter procedure 10/01/2024 9:00 AM EDT Office Visit [facility] [address] [place] [address] Kiko Holder MD [address] [facility] [address] [place] [address] (Fax) [facility] Start: 09-21-2024 End: 04-23-2025 Hemoglobin A1c/Hemoglobin.total in Blood Hemoglobin A1c Lab Routine Type 2 diabetes mellitus with hyperglycemia, without long-term current use of insulin ([facility]) Expected: 09/21/2024, Expires: 04/23/2025 [facility] Comment on above: Expected: 09/21/2024 , Expires: 04/23/2025 Start: 05-02-2024 End: 05-02-2024 Patient encounter procedure [facility] Comment on above: Arrived Start: 04-23-2024 End: 04-23-2025 Hemoglobin A1c/Hemoglobin.total in Blood Hemoglobin A1c Lab Routine Type 2 diabetes mellitus with hyperglycemia, without long-term current use of insulin ([facility]) Expected: 04/23/2024 (Approximate), Expires: 04/23/2025 [facility] Work Phone: Comment on above: Expected: 04/23/2024 (Approximate), Expires: 04/23/2025 Start: 04-23-2024 End: 04-23-2024 Patient encounter procedure 04/23/2024 9:30 AM EST Office Visit [facility] [address] [facility] 100 [place] [address] Kiko Holder MD [address] [facility] [address] [place] [address] [facility] Start: 04-05-2024 End: 04-05-2024 Patient encounter procedure 04/05/2024 11:00 AM EST Procedure Visit [facility] [address] [facility] [place] [id number] Lluvia Ortiz PA [address] [place] [address] [facility] Start: 02-27-2024 End: 04-28-2025 MG Breast - bilateral Screening Bilateral screening mammogram Imaging Routine Breast cancer screening by mammogram Expected: 02/27/2024 (Approximate), Expires: 04/28/2025 [facility] Work Phone: Comment on above: Expected: 02/27/2024 (Approximate), Expires: 04/28/2025 Start: 01-15-2024 Influenza vaccination Influenza Vacc ine (#1) [facility] Start: 2014 Screening for malignant neoplasm of breast Mammogram [facility] Start: 1993 Urine screening for protein Diabetes: Urine Protein Screening [facility] Start: 1984 Glaucoma screening Diabetes: R etinopathy Screening [facility] Start: 1974 Hemoglobin A1c measurement Diabetes: Hemoglobin A1C [facility] Start: 1974 Screening for malignant neoplasm of colon [facility] THIN PREP TIS PAP AN D HR HPV DNA THIN PREP TIS PAP AND HR HPV DNA Pathology and Cytology Routine Well woman exam with routine gynecological exam Ordered: 02/27/2024 [facility] Comment on above: Ordered: 02/27/2024 THIN PREP TIS PAP AN D HR HPV DNA THIN PREP TIS PAP AND HR HPV DNA Pathology and Cytology Routine Well woman exam with routine gynecological exam Ordered: 02/28/2025 [facility] Comment on above: Ordered: 02/28/2025 Immunizations Immunization Date Immunization Notes Care Provider [facility] 02-16-2024 influenza, injectabl e, madin aime canine kidney, preservative free Kiko Holder MD Work Phone: [facility] 02-16-2024 influenza virus vacc ine, unspecified formulation Kiko Holder MD Work Phone: [facility] 05-18-2000 hepatitis B vaccine, adult dosage Vernon Mike DO Work Phone: [facility] 11-18-1999 hepatitis B vaccine, adult dosage Vernon Mike DO Work Phone: [facility] 10-14-1999 hepatitis B vaccine, adult dosage Vernon Mike DO Work Phone: [facility] 10-14-1999 measles, mumps and rubella virus vaccine Vernon Mike DO Work Phone: [facility] 10-14-1999 TD(adult) unspecifie d formulation Vernon Mckeon DO Work Phone: [facility] 08-05-1977 measles, mumps and rubella virus vaccine Vernon Mike DO Work Phone: [facility] Payers Date Payer Category Payer Self-pay 2024 Unknown [id number] 2024 Unknown [id number] 2022 [facility] [id number] [id number] 2022 Unknown [id number] 2019 Unknown [id number] 1974 Unknown [id number] 2.16.84 [id number] 1974 Unknown [id number] 2.16.84 [id number] 1974 Unknown [id number] 2.16.84 [id number] 1974 Unknown [id number] 2.16.8 [id number] 1974 Unknown [id number] 2.16.8 [id number] 1974 Unknown [id number] 2.16.8 [id number] 1974 Unknown [id number] 2.16.84 [id number] 1974 Unknown [id number] 2.16.84 [id number] 1974 Unknown [id number] 2.16.84 [id number] 1974 Unknown [id number] 2.16.84 [id number] Social History Date Type Detail Facility Start: 11-21-2023 [facility] Start: 11-21-2023 Tobacco use and exposure Smoke less tobacco non-user [facility] Start: 11-21-2023 End: 02-28-2025 Alcoholic beverage intake Current drinker of alcohol (finding) [facility] Start: 11-21-2023 End: 02-26-2025 Alcoholic beverage intake [facility] Start: 11-21-2023 End: 02-26-2025 Tobacco use panel [facility] Start: 11-17-2022 Alcohol Comment Caffeine intak e: 1-2 cups per day [facility] Start: 1974 Sex assigned at Not on file N [facility] Start: 07-28-2022 Sex Female [facility] Functional Status Date Assessment Result Facility 02-26-2025 Patient Health Quest ionnaire 2 item (PHQ-2) [Reported] [facility] 01-28-2025 Patient Health Quest ionnaire 2 item (PHQ-2) [Reported] [facility] Clinical Notes 02-27-2024 to 02-28-2025 Sepideh Guerra LPN - 02/28/2025 10:00 AM Alexsandra Holder MD - 02/26/2025 11:30 AM Alexsandra Holder MD - 01/28/2025 2:30 PM EDTTelephone Encounter - Chandni Albaro - 11/12/2024 3:11 PM EDT Note Date & Type Note Facility 02-28-2025 History of Presen t illness Narrative Reason for Appointment: Patient ID: Serina Horn is a 49 y.o. female who presents for Gynecologic Exam Patient presents today for Annual Exam. MEDICATIONS Current Outpatient Medications Medication Instructions albuterol HFA 90 mcg/act inhaler 2 puffs, Inhalation, Every 4 hours PRN cetirizine (ZyrTEC) 10 MG tablet TAKE 1 TABLET BY MOUTH EVERY DAY NEEDED estradiol (ESTRACE) 1 mg, Oral, Every morning famotidine (PEPCID) 10 mg, Daily fexofenadine (DANIELLA ALLERGY) 180 mg, 2 times daily PRN fluticasone (Flonase) 50 MCG/ACT nasal spray 1 spray, Daily Fluticasone-Salmeterol (Advair Diskus) 250-50 MCG/ACT aerosol powder 1 puff, Inhalation, Daily levoFLOXacin (LEVAQUIN) 750 mg, Oral, Daily metFORMIN (GLUCOPHAGE) 1,000 mg, Oral, 2 times daily with meals montelukast (SINGULAIR) 10 mg, Oral, Nightly Multiple Vitamin (multivitamin) capsule 1 capsule, Daily ALLERGIES Allergies[1] PROBLEMS Active Ambulatory Problems Diagnosis Date Noted Asymptomatic varicose veins 11/15/2012 Chronic pansinusitis 11/03/2022 Allergic rhinitis 12/21/2022 Moderate persistent asthma without complication ([facility]) 11/21/2023 Morbid obesity ([facility]) 04/26/2024 Type 2 diabetes mellitus without complication, without long-term current use of insulin ([facility]) 08/02/2024 Resolved Ambulatory Problems Diagnosis Date Noted Asthma ([facility]) 12/21/2022 Class 3 obesity ([facility]) 12/21/2022 Type 2 diabetes mellitus with hyperglycemia, without long-term current use of insulin ([facility]) 04/26/2024 Past Medical History: Diagnosis Date Breast cancer screening by mammogram 06/26/2020 Glaucoma Mild intermittent asthma ([facility]) Recurrent maxillary sinusitis Suppurative otitis media HISTORY PAST MEDICAL HISTORY SOCIAL HISTORY Medical History[2] Social History Tobacco Use Smoking status: Never Smokeless tobacco: Never Substance Use Topics Alcohol use: Yes Alcohol/week: 2.0 standard drinks of alcohol Types: 2 Standard drinks or equivalent per week Comment: Caffeine intake: 1-2 cups per day Drug use: Never FAMILY HISTORY Family History[3] SURGICAL HISTORY Surgical History[4] REVIEW OF SYSTEMS Review of Systems: Review of Systems Constitutional: Negative. HENT: Negative. Eyes: Negative. Respiratory: Negative. Cardiovascular: Negative. Gastrointestinal: Negative. Genitourinary: Negative. Musculoskeletal: Negative. Skin: Negative. Neurological: Negative. All other systems reviewed and are negative. Hematological: Negative. Endocrine: Negative. Allergic/Immunologic: Negative. OBJECTIVE Objective: Physical Exam Constitutional: Appearance: Normal appearance. She is well-developed. Genitourinary: Vulva normal. Vaginal cuff intact. Cervix is absent. Uterus is absent. Breasts: Breasts are soft. Right: Normal. [...] nursing note reviewed. Exam conducted with a ironworker machine operator present. Vitals: Estimated body mass index is 39.03 kg/m as calculated from the following: Height as of this encounter: 5' 6 . Weight as of this encounter: 241 lb 12.8 oz. BP: 130/78 No LMP recorded. Patient has had a hysterectomy. ASSESSMENT & PLAN ICD-10-CM 1. Well woman exam with routine gynecological exam Z01.419 DEXA bone density THIN PREP TIS PAP AND HR HPV DNA DEXA bone density 2. Encounter for screening mammogram for malignant neoplasm of breast Z12.31 Bilateral screening mammogram Bilateral screening mammogram 3. Decreased sex drive R68.82 Annual: Patient presents today for an annual exam. Patient states she is doing well and has no complaints. Pap was obtained without difficulty and patient given mammogram order to have scheduled/obtained. Patient is scheduled for her colonoscopy. Patient does not desire intervention at this time for decreased sex drive. Orders Placed This Encounter Procedures Bilateral screening mammogram DEXA bone density Follow Up: Patient is to return in one year for annual unless needed otherwise. Documented by Sepideh Guerra LPN on behalf of: Vernon Mckeon DO [1] Allergies Allergen Reactions Sulfa Antibiotics Other Reaction(s): Unknown [2] Past Medical History: Diagnosis Date Allergic rhinitis Breast cancer screening by mammogram 06/26/2020 Glaucoma Mild intermittent asthma (HCC) Recurrent maxillary sinusitis Suppurative otitis media [3] Family History Problem Relation Name Age of Onset Diabetes Mother Hypertension Mother Hyperlipidemia Mother Hypertension Father Hyperlipidemia Father Cancer Father [4] Past Surgical History: Procedure Laterality Date APPENDECTOMY 2008 HYSTERECTOMY documented in this encounter [facility] 02-26-2025 History of Presen t illness Narrative Images from the original note were not included. Patient ID: Serina Horn is a 49 y.o. female who presents for: Adult Wellness: Advance Directive/Living Will: No Health Care Power of Senior Network Administrator: No Review of Systems Constitutional: Negative for appetite change, chills, fever and unexpected weight change. HENT: Positive for congestion, sinus pressure, sinus pain and voice change. Breasts: Negative for breast mass and breast discharge. Respiratory: Positive for cough and wheezing. Negative for shortness of breath. Cardiovascular: Negative for chest pain, palpitations and leg swelling. Gastrointestinal: Negative for abdominal pain, constipation and diarrhea. Genitourinary: Negative for frequency and urgency. Neurological: Negative for light-headedness and headaches. Psychiatric/Behavioral: Negative for behavioral problems and sleep disturbance. The patient is not nervous/anxious. Objective In general the patient is pleasant and in no acute distress. Shoddy bilateral anterior cervical adenopathy. No signs of respiratory distress. Patient is speaking full sentences. There are symmetrical breath sounds. No rhonchi are appreciated. Faint rales especially in the right base. Bilateral wheezes in the bases right worse than left Skin is warm and dry 02/26/2025 11:32 AM 01/28/2025 2:47 PM 08/02/2024 8:08 AM 04/23/2024 9:21 AM Vitals BMI 39.71 kg/m2 38.58 kg/m2 41.64 kg/m2 44.22 kg/m2 BSA (m2) 2.28 m2 2.24 m2 2.33 m2 2.4 m2 Systolic 126 Diastolic 76 Heart Rate 69 SpO2 99 % Height (in) 5' 6 5' 6 5' 6 5' 6 Weight (lb) 246 239 258 274 Visit Report Report Report Report Report Allergies Allergen [...] mg) by mouth at bedtime 90 tablet 3 Multiple Vitamin (multivitamin) capsule Take 1 capsule by mouth Daily No current facility-administered medications on file prior to visit. 1. Encounter for wellness examination in adult (Primary) I have reviewed the patients PMShx, medications, and reconciled the problem list. Health maintenance and risk was reviewed and discussed. I also reviewed and discussed as appropriate; immunizations, colon cancer screening, breast and cervical cancer screening, recommended and any current lab evaluation. All items were brought up to date unless declined by the patient. 2. Advance directive discussed with patient Patient voluntarily agreed to discuss advance care planning at today's wellness visit. We discussed that an advance directive is a legal document that only goes into effect if the patient is incapacitated and unable to speak for themselves. This would help us to decide what care the patient would want. We discussed emergency treatments to keep the patient alive such as CPR, ventilator use and concept of comfort. We discussed how patients could make their wishes known through a living will, durable power of drawing tender for healthcare, or other advanced directives. We discussed telling fowler people about their advance and a copy will be kept in the EHR. I discussed that they should also make me an emergency contact in their cell phone, and/or notify their POA that I have a copy of the advanced directives. 3. Morbid obesity (CMS-HCC) Continue working on lifestyle changes as previously discussed. 4. Non-seasonal allergic rhinitis, unspecified trigger Chronic comorbid condition - 5. Pneumonia of both lower lobes due to infectious organism Acute problem. After discussion she has previously failed cefuroxime. She noted she was given Zithromax after the cefuroxime and felt improvement. We discussed needing dual antibiotics versus a quinolone and we have elected to prescribe quinolone. - levoFLOXacin (Levaquin) 750 MG tablet; Take 1 tablet (750 mg) by mouth Daily for 7 days Dispense: 7 tablet; Refill: 0 6. Moderate persistent asthma with acute exacerbation (HCC) I discussed with the patient she has not been using her albuterol regularly with this illness. I encouraged her to be using it 4 times daily on a regular basis. She is using her preventative Advair on a regular basis. albuterol HFA 90 mcg/act inhaler; Inhale 2 puffs every 4 (four) hours if needed for wheezing Dispense: 18 g; Refill: 2 7. Screening for colon cancer Discussed options, Referral to general surgery Please Note: Portions of this chart may have been created using voice recognition software. Occasionally a wrong-word or sound-like substitutions may have occurred due to inherent limitations of the voice recognition software. Please read the chart carefully and recognize, using context, where the substitutions may have occurred. documented in this encounter [facility] 01-28-2025 History of Presen t illness Narrative Images from the original note were not included. Patient ID: Serina Horn is a 49 y.o. female who presents for: Diabetes Mellitus Patient presents for follow up of diabetes. Current symptoms include: none. Symptoms have stabilized. Patient denies increased appetite, paresthesia of the feet, polydipsia, polyuria, and visual disturbances. Evaluation to date has included: hemoglobin A1C. Home sugars: patient does not check sugars. Objective The patient is pleasant and in no acute distress The patient has good eye contact and clear speech 08/02/2024 8:08 AM 04/23/2024 9:21 AM 04/05/2024 11:41 AM 02/27/2024 8:47 AM Vitals BMI 41.64 kg/m2 44.22 kg/m2 44.22 kg/m2 44.84 kg/m2 BSA (m2) 2.33 m2 2.4 m2 2.4 m2 2.42 m2 Systolic 122 Diastolic 74 Height (in) 5' 6 5' 6 Weight (lb) 258 274 274 277.8 Visit Report Report Report Report Allergies Allergen Reactions [...] mg) by mouth at bedtime 90 tablet 3 Multiple Vitamin (multivitamin) capsule Take 1 capsule by mouth Daily No current facility-administered medications on file prior to visit. 1. Type 2 diabetes mellitus without complication, without long-term current use of insulin ([facility]) Previous hemoglobin A1c was to goal. Current fasting blood sugar 127. Otherwise asymptomatic. Discussed options and encouraged lifestyle changes as noted below. Renew prescription - Hemoglobin A1c; Future - metFORMIN (Glucophage) 1000 MG tablet; Take 1 tablet (1,000 mg) by mouth in the morning and 1 tablet (1,000 mg) in the evening. Take with meals. Dispense: 180 tablet; Refill: 1 - Hemoglobin A1c 2. Morbid obesity ([facility]) Lifestyle changes. I reinforced the low simple sugar and simple carbohydrate diet. We discussed continuing with regular and formal exercise. She has done an excellent job to this point. She got the rail by some things but is going to be back on track. 3. Mixed hyperlipidemia After quite a long discussion, she understands the standard of care is statins with the diabetes. We discussed that probably atorvastatin would be the most appropriate here. She prefers not to use any prescription medications if at all avoidable. I discussed with her alternative options including concentrated fish oil 1 tsp daily with vitamin-E mixed tocopherol 400 mg daily. She will also titrate up on niacin SR starting at 500 mg nightly for 1 month 1000 mg nightly for 1 month and then 1500 mg nightly. She will let me know how she is doing with this. I have discussed the patient's lipid pathology. I discussed that while niacin can improve the lipid profile it is not the standard of care. I discussed several different mechanisms that niacin works by. I also specifically discussed the side effect of flushing. I discussed the correct ways of taking niacin with a small amount of water and a protein snack. I also discussed how to titrate niacin to help reduce any flushing. I also discussed if there was severe flushing to stand up slowly and to get 4 or 5 81 mg aspirins and then chew them enough to break the seal and drink a lot of water. This will usually help to rescue from the flush. We also specifically discussed how they should be using sustained release niacin. I discussed with them that no flush niacin is not actually niacin and while physiologically it can be used, it does not have the cholesterol modifying effect. We have discussed that any supplements recommended have not undergone review or approval by the FDA and, therefore, have not been documented to be safe or effective to diagnose, treat, prevent, mitigate, or cure any condition or disease. - Lipid panel; Future - Lipid panel Please Note: Portions of this chart may have been created using voice recognition software. Occasionally a wrong-word or sound-like substitutions may have occurred due to inherent limitations of the voice recognition software. Please read the chart carefully and recognize, using context, where the substitutions may have occurred. documented in this encounter [facility] 11-13-2024 Telephone encount er Note RX sent [facility] 11-13-2024 Miscellaneous Notes Formattin g of this note might be different from the original. RX sent Serina called requesting a refill on her Advair to [facility] in [place]. She is out. documented in this encounter [facility] 11-12-2024 Telephone encount er Note Serina called requesting a refill on her Advair to [facility] in [place]. She is out. [facility] 11-08-2024 History of Presen t [...] at this time. documented in this encounter [facility] 10-03-2024 Telephone encount er Note Rx sent [facility] 10-03-2024 Miscellaneous Notes Formattin g [...] could send something in for her to [facility] in [place]. documented in this encounter [facility] 10-03-2024 Telephone encount er Note Serina called, She states she started in about 7 days ago with cold symptoms. She states the last 3 days she has gotten worse with thick dark drainage, bad sinus pain and pressure and headache. She states she is very congested. She is asking if Dr. Holder could send something in for her to [facility] in [place]. [facility] 05-17-2024 Telephone encount er Note RX sent [facility] 05-17-2024 Miscellaneous Notes Formattin g [...] have to wait tuesday. She goes to [facility] in [place]. documented in this encounter [facility] 05-17-2024 Telephone encount er Note Serina called, she has a sinus infection she just can't kick. She states she has has bad sinus pain and pressure, headache, congestion and bright green thick mucus when blowing her nose. Serina is asking if Dr. Holder could send in something for her so she doesn't have to wait tuesday. She goes to [facility] in [place]. [facility] 05-02-2024 History of Presen t [...] tablet; Refill: 0 documented in this encounter [facility] 04-23-2024 History of Presen t illness Narrative Images from the original note were not included. Patient ID: Serina Horn is a 48 y.o. female who presents for: Pt states she saw is the new eye dr at [facility]'s office in December, she had [...] hyperglycemia, without long-term current use of insulin ([facility]) (Primary) Fasting blood sugar of 421 [place], [...] for now after urinating. She has tried tuur-hpe-pmeeoap yeast creams without improvement. In prescribing a [...] 14 tablet; Refill: 0 3. Morbid obesity ([facility]) We did review how this affects the insulin resistance which has led to the diabetes. 4. Body mass index (BMI) 40.0-44.9, adult ([facility]) Defines the morbid obesity documented in this encounter [facility] 04-05-2024 History of Presen t [...] rhinitis 12/21/2022 Moderate persistent asthma without complication ([facility]) 11/21/2023 Resolved Ambulatory Problems Diagnosis Date Noted [...] nursing note reviewed. Exam conducted with a ironworker machine operator present. Vitals: Estimated body mass index [...] after allowing sufficient time to take affect. metal pickling equipment operator and scissors used to remove affected area. Placed in formalin and sent to pathology. Post-procedure instructions given. Several skin tags removed on right and left side, which will be sent to Pathology for testing. Follow Up: as needed and for annual appointment. Documented by Sepideh Guerra LPN on behalf of: EVERETTE Skinner documented in this encounter [facility] 02-27-2024 History of Presen t [...] rhinitis 12/21/2022 Moderate persistent asthma without complication ([facility]) 11/21/2023 Resolved Ambulatory Problems Diagnosis Date Noted [...] nursing note reviewed. Exam conducted with a ironworker machine operator present. Vitals: Estimated body mass index [...] by Sepideh Guerra LPN on behalf of: Vernon Mckeon DO documented in this encounter [facility] Evaluation note Diagnosis Well woman exam with routine gynecological exam Routine gynecological examination Breast cancer screening by mammogram Asymptomatic menopausal state Non-seasonal allergic rhinitis, unspecified trigger Moderate persistent asthma without complication ([facility]) [facility] Diagnosis Skin tag Unspecified hypertrophic and atrophic condition of skin [facility] Diagnosis Type 2 diabetes mellitus with hyperglycemia, without long-term current use of insulin (CMS/[facility])- Primary Monilial vaginitis Morbid obesity ([facility]) Morbid obesity Body mass index (BMI) 40.0-44.9, adult ([facility]) [facility] [...] extremity- Primary [facility]* Diagnosis Type 2 diabetes mellitus without complication, without long-term current use of insulin (HCC) Morbid obesity (CMS-HCC) Morbid obesity Mixed hyperlipidemia Mixed hyperlipidemia [facility] Diagnosis Encounter for wellness examination in adult- Primary Advance directive discussed with patient Morbid obesity ([facility]) Morbid obesity Non-seasonal allergic rhinitis, unspecified trigger Pneumonia of both lower lobes due to infectious organism Moderate persistent asthma with acute exacerbation (HCC) Screening for colon cancer Special screening for malignant neoplasms, colon [facility] Diagnosis Well woman exam with routine gynecological exam Routine gynecological examination Encounter for screening mammogram for malignant neoplasm of breast Decreased sex drive Unspecified psychosexual disorder documented in this encounter [facility] Summary Purpose Family History No Family History Records FoundNo Family History Records FoundNo Family History Records FoundNo Family History Records Found Advance Directives No Advanced Directives Records FoundNo Advanced Directives Records FoundNo Advanced Directives Records FoundNo Advanced Directives Records Found Additional Source Comments INFORMATION SOURCE (unrecogn ized section and content) DATE CREATED AUTHOR 08/24/2022 [facility] DATE CREATED AUTHOR AUTHOR'S ORGANIZ ATION [facility]/2024 [facility] DATE CREATED AUTHOR AUTHOR'S ORGANIZ ATION 04/13/2024 [facility] DATE CREATED AUTHOR AUTHOR'S ORGANIZ ATION 02/27/2025 [facility] Care Teams (unrecognized sec tion and content) Inside Sales Person Relationship Specialty Start Date End Date Kiko Holder MD [address] [place] [address] PCP - General Family Medicine 11/03/22 Kiko Holder MD [address] [place] [address] PCP - [employer] 12/14/22 Inside Sales Person Relationship Specialty Start Date End Date Kiko Holder MD [address] [place] [address] PCP - General Family Medicine 11/03/22 Kiko Holder MD [address] [place] [address] [facility]22 Inside Sales Person Relationship Specialty Start Date End Date Kiko Holder MD [address] [place] [phone] PCP - General Family Medicine 11/03/22 Kiko Holder MD [address] [place] [address] (Fax) PCP - [employer] 12/14/22 Inside Sales Person Relationship Specialty Start Date End Date Kiko Holder MD (Fax) PCP - General Family Medicine 11/03/22 Kiko Holder MD [address] [place] [address] (Fax) PCP - [employer] 12/14/22 Inside Sales Person Relationship Specialty Start Date End Date Kiko Holder MD (Fax) PCP - General Family Medicine 11/03/22 Kiko Holder MD [address] [place] [phone] (Fax) PCP - [employer] 12/14/22 Inside Sales Person Relationship Specialty Start Date End Date Kiko Holder MD (Fax) PCP - General Family Medicine 11/03/22 Kiko Holder MD [address] [place] [address] (Fax) PCP - [employer] 12/14/22 Inside Sales Person Relationship Specialty Start Date End Date Kiko Holder MD (Fax) PCP - General Family Medicine 11/03/22 Kiko Holder MD [address] [place] [address] (Fax) PCP - [employer] 12/14/22 Inside Sales Person Relationship Specialty Start Date End Date Kiko Holder MD (Fax) PCP - General Family Medicine 11/03/22 Kiko Holder MD [address] [place] [address] (Fax) PCP - [employer] 12/14/22 Inside Sales Person Relationship Specialty Start Date End Date Kiko Holder MD (Fax) PCP - General Family Medicine 11/03/22 Inside Sales Person Relationship Specialty Start Date End Date Kiko Holder MD (Fax) PCP - General Family Medicine 11/03/22 Inside Sales Person Relationship Specialty Start Date End Date Kiko Holder MD (Fax) PCP - General Family Medicine 11/03/22 Inside Sales Person Relationship Specialty Start Date End Date Kiko Holder MD (Fax) PCP - General Family Medicine 11/03/22 Inside Sales Person Relationship Specialty Start Date End Date Kiko Holder MD (Fax) PCP - General Family Medicine 11/03/22 Inside Sales Person Relationship Specialty Start Date End Date Kiko Holder MD (Fax) PCP - General Family Medicine 11/03/22 Inside Sales Person Relationship Specialty Start Date End Date Kiko Holder MD [address] [place] [address] (Fax) PCP - General Family Medicine 02/26/25 Inside Sales Person Relationship Specialty Start Date End Date Kiko Holder MD [address] [facility] [address] [place] [address] (Fax) PCP - General Family Medicine 02/26/25 Inside Sales Person Relationship Specialty Start Date End Date Kiko Holder MD [address] [facility] [address] [place] [address] (Fax) PCP - General Family Medicine 02/26/25 Inside Sales Person Relationship Specialty Start Date End Date Kiko Holder MD [address] [facility] Suad MONTEMAYOR [phone] [id number] (Fax) PCP - General Family Medicine 02/26/25 Reason for Visit (unrecogniz ed section and content) Reason Comments Well Women Visit Reason Comments Skin Tag Pt present today for a skin tag removal visit. Reason Comments Eye Problem Reason Comments Diabetes Reason Comments Annual Exam Reason Comments Gynecologic Exam FOR RECORDS PERTAINING TO PATIENTS WHO ARE [...] BE BASED ON THE PRIMARY CLINICAL RECORDS. [facility]. provides no warranty or guarantee of the accuracy or completeness of information in this document.
[2025-03-05 12:09] LABS: Age Gdln ACOG Testing Note (.); IGP, Aptima HPV, rfx 16/18,45 Note (.)
== END 2025-02-28 13:08 | disposition home or self-care (01) ==
LOC: LAB 13:07
PROVIDERS: PCP Family Medicine; Visit Provider Obstetrics & Gynecology
DX: Z01.419 Encounter for gynecological examination (general) (routine) without abnormal findings (principal)
CPT/HCPCS: 87624; 88175